=== PATIENT | female | born 1995 | race Caucasian/White ===

== ENCOUNTER 2020-02-13 18:16 | Emergency (ER) | payer MEDICAID, SELFPAY ==
[2020-02-13 20:18] VITALS: BP 119/84; PULSE 99; RESP 16; TEMP 37.1; O2SAT 100; BMI 36.5
--- NOTE | 2020-02-13 20:27 | ED_ITS ---
HPI - Nausea/Vomiting/Diarrhea General Chief complaint: Nausea/Vomiting/Diarrhea <TAMELA Man Last Filed: 02/14/20 01:14> Stated complaint: flu like <Berna Chung NP - Last Filed: 02/14/20 01:14> Time Seen by Provider: 02/13/20 20:27 <TAMELA Man Last Filed: 02/14/20 01:14> Source: patient <Berna Chung NP - Last Filed: 02/14/20 01:14> Mode of arrival: ambulatory <TAMELA Man Last Filed: 02/14/20 01:14> Limitations: no limitations <TAMELA Man Last Filed: 02/14/20 01:14> History of Present Illness HPI Narrative: 25-year-old female presents with multiple complaints of earache, sore throat, subjective fevers and chills, intractable headache, photophobia, nausea and vomiting. She has been feeling well over the past 3 days and when she woke up this morning she had a 10/10 headache and was unable to open her eyes because of photophobia. She states to have vomited 6 times today, did not eat or drink anything because of nausea and headache. She has a distant history of meningitis at age 11 and states she feels similar to that prior experience. She denies chest pain and pressure, palpitations, shortness of breath, abdominal distention, dysuria, hematuria, edema, loss of balance, trauma and falls. <TAMELA Man Last Filed: 02/14/20 01:14> MD elicited complaint: nausea and vomiting <TAMELA Man Last Filed: 02/14/20 01:14> Onset (ago): day(s) <Berna Chung NP - Last Filed: 02/14/20 01:14> Description of vomiting: watery and bilious <TAMELA Man Last Filed: 02/14/20 01:14> Associated nausea: Yes <TAMELA Man Last Filed: 02/14/20 01:14> Associated abdominal pain: No <TAMELA Man Last Filed: 02/14/20 01:14> Pain consistency: constant <Berna Chung NP - Last Filed: 02/14/20 01:14> Severity: moderate <Berna Chung NP - Last Filed: 02/14/20 01:14> Associated symptoms: fever/chills and headaches <Berna Chung NP - Last Filed: 02/14/20 01:14> Treatment prior to arrival: analgesics <Berna Chung NP - Last Filed: 02/14/20 01:14> Related Data Home medications: Previous Rx's Medication Instructions Recorded amoxicillin-pot clavulanate 1 tab PO Q12H 7 Days #14 tab 02/14/20 [Augmentin] smcbraueaa-zjoyhnavsedbd-yphf 1 cap PO Q8H PRN #10 cap 02/14/20 [Fioricet] <Berna Chung NP - Last Filed: 02/14/20 01:14> Allergies/Adverse reactions: Allergies Allergy/AdvReac Type Severity Reaction Status Date / Time No Known Allergies Allergy Unverified 01/20/20 16:14 [No Known Allergies*] <Berna Chung NP - Last Filed: 02/14/20 01:14> Review of Systems Review of Systems: Constitutional: No Weight loss, No Fever, No Chills, No Night Sweats, No Fatigue, No Malaise ENT/Mouth: Positive ear pain, sore throat, No Hearing loss, No Nasal Congestion, No Sinus Pain, No Hoarseness, No Rhinorrhea, No Swallowing Difficulty Eyes: positive photophobia, No Eye Pain, No Swelling, No Redness, No Foreign Body, No Discharge, No Vision Changes Cardiovascular: No Chest Pain, No SOB, No Dyspnea on Exertion, No Orthopnea, No Edema, No Palpitations Respiratory: No Cough, No Sputum, No Wheezing, No Smoke Exposure, No Dyspnea Gastrointestinal: Positive Nausea, Positive Vomiting, positive Diarrhea, positive abdominal Pain, No Hematochezia, No Melena Genitourinary: no irregular bleeding, No Dysuria, No Urinary Frequency, No Hematuria, No Urinary Incontinence, No Urgency, No Flank Pain, No Urinary Flow Changes, No Hesitancy Musculoskeletal: No joint pain, No Myalgias, No Joint Swelling Skin: No Skin Lesions, No rash Neuro: No Weakness, No Numbness, No Paresthesias, No Loss of Consciousness, No Dizziness, No Headache Psych: No Anxiety/Panic, No Depression, No SI/HI/AH/VH, No Social Issues, Heme/Lymph: No Bruising, No Bleeding,No Lymphadenopathy Endocrine: No Polyuria, No Polydipsia, No Temperature Intolerance <Berna Chung NP - Last Filed: 02/14/20 01:14> Gastrointestinal: Gastrointestinal: Reports nausea <Berna Chung NP - Last Filed: 02/14/20 01:14> [facility] Past Medical History Attestation statement: The following information was validated with the patient. <Berna Chung NP - Last Filed: 02/14/20 01:14> Medical History: Medical History (Updated 02/14/20 @ 00:52 by Berna Chung NP) Meningitis Migraines <Berna Chung NP - Last Filed: 02/14/20 01:14> Social History Social History: Social History Alcohol intake: never Smoking Status: Never smoker Use of substances other than those prescribed or required for medical reasons: No Advance Directives: No Advance Directives Information Provided: No <Berna Chung NP - Last Filed: 02/14/20 01:14> Physical Exam Vital Signs: Vital Signs: Vital Signs Temp Pulse Resp BP Pulse Ox 02/14/20 00:00 98.7 F 84 24 H 101/59 L 100 02/13/20 22:04 84 129/77 100 02/13/20 21:24 98.8 F 86 16 106/61 100 02/13/20 21:00 100 02/13/20 20:18 98.8 F 99 16 119/84 100 Body Mass Index 36.5 <Berna Chung NP - Last Filed: 02/14/20 01:14> Vital Signs: Vital Signs Temp Pulse Resp BP Pulse Ox 02/14/20 00:00 98.7 F 84 24 H 101/59 L 100 02/13/20 22:04 84 129/77 100 02/13/20 21:24 98.8 F 86 16 106/61 100 02/13/20 21:00 100 02/13/20 20:18 98.8 F 99 16 119/84 100 Body Mass Index 36.5 <Geoff An DO - Last Filed: 02/14/20 01:42> Appearance: Alert. Oriented X3. No acute distress. Eyes: Pupils equal, round and reactive to light. ENT: Pharynx normal. Neck: Normal inspection. Neck supple. CVS: Normal heart rate and rhythm. Pulses normal. Respiratory: No respiratory distress. Breath sounds normal. Abdomen: Soft and nontender. Skin: Skin warm and dry. Normal skin color. Normal skin turgor. Extremities: No lower extremity edema. No lower extremity edema. Neuro: Oriented X 3. No motor deficit. No sensory deficit. <Berna Chung NP - Last Filed: 02/14/20 01:14> Course Course Course Narrative: I evaluated the patient myself. 25-year-old with sore throat right ear pain full body myalgias and headache without signs of meningitis. improved agree with mid-level provider's assessment and plan <DO Barron Gandara Last Filed: 02/14/20 01:42> MDM - Nausea/Vomiting/Diarrhea Differential Diagnosis Differential diagnosis: Likely gastroenteritis and dehydration <Berna Chung NP - Last Filed: 02/14/20 01:14> Medical Records Attestation: I reviewed the patient's medical records. <Berna Chung NP - Last Filed: 02/14/20 01:14> Lab Data Attestation: I reviewed the patient's lab results. <Berna Chung NP - Last Filed: 02/14/20 01:14> Result diagrams: : 02/13/20 21:07 02/13/20 21:07 <Berna Chung NP - Last Filed: 02/14/20 01:14> Labs: Lab Results 02/13/20 02/13/20 02/13/20 Range/Units 21:07 21:07 21:07 WBC 12.1 H (4.8-10.8) X10*3/uL RBC 4.47 (4.20-5.50) X10*6/uL Hgb 12.4 (12.0-16.0) g/dl Hct 38.3 (37-47) % MCV 85.7 (80-98) fL MCH 27.7 (27.0-33.0) pg MCHC 32.4 (31.0-35.0) g/dl RDW 13.8 (11.0-16.0) % Plt Count 366 (160-400) X10*3/uL MPV 10.9 (9.4-12.3) fL Immature Gran % (Auto) 0.3 (0.0-0.4) % Neut % (Auto) 81.9 H (45-73) % Lymph % (Auto) 11.2 L (20-40) % [place] % (Auto) 6.4 (2-11) % Eos % (Auto) 0.0 (0-4) % Baso % (Auto) 0.2 (0-2) % Lymph # (Auto) 1.4 (1.2-4.9) X10*3/uL [place] # (Auto) 0.8 (0.1-1.2) X10*3/uL Eos # (Auto) 0.0 (0.0-0.4) X10*3/uL Baso # (Auto) 0.0 (0.0-0.2) X10*3/uL Abs Immat Gran (auto) 0.04 H (0.00-0.03) X10*3/uL Absolute Neuts (auto) 9.9 H (2.0-8.3) X10*3/uL Absolute Nucleated RBC 0.000 (0.0-0.012) X10*3/uL Nucleated RBC % (auto) 0.0 (0.0-0.2) /100WBC PT 13.8 H (10.8-13.0) SEC INR 1.2 H (0.9-1.1) Sodium 137 (135-145) mmol/L Potassium 4.1 (3.3-5.1) mmol/l Chloride 104 (96-108) mmol/L Carbon Dioxide 22 (22-29) mmol/L Anion Gap 15 (12-20) BUN 6 L (9-16) mg/dL Creatinine 0.69 (0.5-1.4) mg/dL Estim Creat Clear Calc 158.3 Estimated GFR > 60 Random Glucose 99 (60-115) mg/dL Lactic Acid (0.5-2.0) mmol/L Calcium 9.0 (8.4-10.2) mg/dL Magnesium 1.8 (1.6-2.6) mg/dL Total Bilirubin 0.7 (0.0-1.0) mg/dL Direct Bilirubin 0.3 (0.0-0.5) mg/dL AST 22 (5-31) U/L ALT 19 (0-31) U/L Alkaline Phosphatase 108 (39-117) U/L Total Protein 7.9 (6.5-8.0) g/dL Albumin 4.4 (3.5-5.0) g/dL Lipase 5 L (8-78) U/L Beta HCG, Quant < 2 mIU/mL Urine Color Urine Appearance Urine pH (5.0-8.0) Ur Specific Media (1.005-1.025) Urine Protein (NEG-TRACE) MG/DL Urine Glucose (UA) (NEG) MG/DL Urine Ketones (NEG) MG/DL Urine Blood (NEG) Urine Nitrite (NEG) Ur Leukocyte Esterase (NEG) 02/13/20 02/13/20 Range/Units 21:07 23:19 WBC (4.8-10.8) X10*3/uL RBC (4.20-5.50) X10*6/uL Hgb (12.0-16.0) g/dl Hct (37-47) % MCV (80-98) fL MCH (27.0-33.0) pg MCHC (31.0-35.0) g/dl RDW (11.0-16.0) % Plt Count (160-400) X10*3/uL MPV (9.4-12.3) fL Immature Gran % (Auto) (0.0-0.4) % Neut % (Auto) (45-73) % Lymph % (Auto) (20-40) % [place] % (Auto) (2-11) % Eos % (Auto) (0-4) % Baso % (Auto) (0-2) % Lymph # (Auto) (1.2-4.9) X10*3/uL [place] # (Auto) (0.1-1.2) X10*3/uL Eos # (Auto) (0.0-0.4) X10*3/uL Baso # (Auto) (0.0-0.2) X10*3/uL Abs Immat Gran (auto) (0.00-0.03) X10*3/uL Absolute Neuts (auto) (2.0-8.3) X10*3/uL Absolute Nucleated RBC (0.0-0.012) X10*3/uL Nucleated RBC % (auto) (0.0-0.2) /100WBC PT (10.8-13.0) SEC INR (0.9-1.1) Sodium (135-145) mmol/L Potassium (3.3-5.1) mmol/l Chloride (96-108) mmol/L Carbon Dioxide (22-29) mmol/L Anion Gap (12-20) BUN (9-16) mg/dL Creatinine (0.5-1.4) mg/dL Estim Creat Clear Calc Estimated GFR Random Glucose (60-115) mg/dL Lactic Acid 1.2 (0.5-2.0) mmol/L Calcium (8.4-10.2) mg/dL Magnesium (1.6-2.6) mg/dL Total Bilirubin (0.0-1.0) mg/dL Direct Bilirubin (0.0-0.5) mg/dL AST (5-31) U/L ALT (0-31) U/L Alkaline Phosphatase (39-117) U/L Total Protein (6.5-8.0) g/dL Albumin (3.5-5.0) g/dL Lipase (8-78) U/L Beta HCG, Quant mIU/mL Urine Color YELLOW Urine Appearance CLEAR Urine pH 6.5 (5.0-8.0) Ur Specific Media 1.025 (1.005-1.025) Urine Protein NEG (NEG-TRACE) MG/DL Urine Glucose (UA) NEG (NEG) MG/DL Urine Ketones >=80 (NEG) MG/DL Urine Blood NEG (NEG) Urine Nitrite NEG (NEG) Ur Leukocyte Esterase NEG (NEG) <Berna Chung NP - Last Filed: 02/14/20 01:14> Lab Results 02/13/20 02/13/20 02/13/20 Range/Units 21:07 21:07 21:07 WBC 12.1 H (4.8-10.8) X10*3/uL RBC 4.47 (4.20-5.50) X10*6/uL Hgb 12.4 (12.0-16.0) g/dl Hct 38.3 (37-47) % MCV 85.7 (80-98) fL MCH 27.7 (27.0-33.0) pg MCHC 32.4 (31.0-35.0) g/dl RDW 13.8 (11.0-16.0) % Plt Count 366 (160-400) X10*3/uL MPV 10.9 (9.4-12.3) fL Immature Gran % (Auto) 0.3 (0.0-0.4) % Neut % (Auto) 81.9 H (45-73) % Lymph % (Auto) 11.2 L (20-40) % [place] % (Auto) 6.4 (2-11) % Eos % (Auto) 0.0 (0-4) % Baso % (Auto) 0.2 (0-2) % Lymph # (Auto) 1.4 (1.2-4.9) X10*3/uL [place] # (Auto) 0.8 (0.1-1.2) X10*3/uL Eos # (Auto) 0.0 (0.0-0.4) X10*3/uL Baso # (Auto) 0.0 (0.0-0.2) X10*3/uL Abs Immat Gran (auto) 0.04 H (0.00-0.03) X10*3/uL Absolute Neuts (auto) 9.9 H (2.0-8.3) X10*3/uL Absolute Nucleated RBC 0.000 (0.0-0.012) X10*3/uL Nucleated RBC % (auto) 0.0 (0.0-0.2) /100WBC PT 13.8 H (10.8-13.0) SEC INR 1.2 H (0.9-1.1) Sodium 137 (135-145) mmol/L Potassium 4.1 (3.3-5.1) mmol/l Chloride 104 (96-108) mmol/L Carbon Dioxide 22 (22-29) mmol/L Anion Gap 15 (12-20) BUN 6 L (9-16) mg/dL Creatinine 0.69 (0.5-1.4) mg/dL Estim Creat Clear Calc 158.3 Estimated GFR > 60 Random Glucose 99 (60-115) mg/dL Lactic Acid (0.5-2.0) mmol/L Calcium 9.0 (8.4-10.2) mg/dL Magnesium 1.8 (1.6-2.6) mg/dL Total Bilirubin 0.7 (0.0-1.0) mg/dL Direct Bilirubin 0.3 (0.0-0.5) mg/dL AST 22 (5-31) U/L ALT 19 (0-31) U/L Alkaline Phosphatase 108 (39-117) U/L Total Protein 7.9 (6.5-8.0) g/dL Albumin 4.4 (3.5-5.0) g/dL Lipase 5 L (8-78) U/L Beta HCG, Quant < 2 mIU/mL Urine Color Urine Appearance Urine pH (5.0-8.0) Ur Specific Media (1.005-1.025) Urine Protein (NEG-TRACE) MG/DL Urine Glucose (UA) (NEG) MG/DL Urine Ketones (NEG) MG/DL Urine Blood (NEG) Urine Nitrite (NEG) Ur Leukocyte Esterase (NEG) 02/13/20 02/13/20 Range/Units 21:07 23:19 WBC (4.8-10.8) X10*3/uL RBC (4.20-5.50) X10*6/uL Hgb (12.0-16.0) g/dl Hct (37-47) % MCV (80-98) fL MCH (27.0-33.0) pg MCHC (31.0-35.0) g/dl RDW (11.0-16.0) % Plt Count (160-400) X10*3/uL MPV (9.4-12.3) fL Immature Gran % (Auto) (0.0-0.4) % Neut % (Auto) (45-73) % Lymph % (Auto) (20-40) % [place] % (Auto) (2-11) % Eos % (Auto) (0-4) % Baso % (Auto) (0-2) % Lymph # (Auto) (1.2-4.9) X10*3/uL [place] # (Auto) (0.1-1.2) X10*3/uL Eos # (Auto) (0.0-0.4) X10*3/uL Baso # (Auto) (0.0-0.2) X10*3/uL Abs Immat Gran (auto) (0.00-0.03) X10*3/uL Absolute Neuts (auto) (2.0-8.3) X10*3/uL Absolute Nucleated RBC (0.0-0.012) X10*3/uL Nucleated RBC % (auto) (0.0-0.2) /100WBC PT (10.8-13.0) SEC INR (0.9-1.1) Sodium (135-145) mmol/L Potassium (3.3-5.1) mmol/l Chloride (96-108) mmol/L Carbon Dioxide (22-29) mmol/L Anion Gap (12-20) BUN (9-16) mg/dL Creatinine (0.5-1.4) mg/dL Estim Creat Clear Calc Estimated GFR Random Glucose (60-115) mg/dL Lactic Acid 1.2 (0.5-2.0) mmol/L Calcium (8.4-10.2) mg/dL Magnesium (1.6-2.6) mg/dL Total Bilirubin (0.0-1.0) mg/dL Direct Bilirubin (0.0-0.5) mg/dL AST (5-31) U/L ALT (0-31) U/L Alkaline Phosphatase (39-117) U/L Total Protein (6.5-8.0) g/dL Albumin (3.5-5.0) g/dL Lipase (8-78) U/L Beta HCG, Quant mIU/mL Urine Color YELLOW Urine Appearance CLEAR Urine pH 6.5 (5.0-8.0) Ur Specific Media 1.025 (1.005-1.025) Urine Protein NEG (NEG-TRACE) MG/DL Urine Glucose (UA) NEG (NEG) MG/DL Urine Ketones >=80 (NEG) MG/DL Urine Blood NEG (NEG) Urine Nitrite NEG (NEG) Ur Leukocyte Esterase NEG (NEG) <Geoff An, DO - Last Filed: 02/14/20 01:42> Imaging Data Chest x-ray: Attestation: I personally reviewed and interpreted this imaging study as follows: <Berna Chung NP - Last Filed: 02/14/20 01:14> Radiologist's impression: CLINICAL INFORMATION: Nausea and vomiting with diarrhea COMPARISON: 01/11/2015 TECHNIQUE: Frontal view of the chest was obtained. FINDINGS: No significant abnormality is noted involving the heart, lungs, mediastinum, bony thorax or soft tissues. IMPRESSION: Unremarkable examination. <Berna Chung NP - Last Filed: 02/14/20 01:14> CT scan - head: Attestation: I personally reviewed and interpreted this imaging study as follows: <Berna Chung NP - Last Filed: 02/14/20 01:14> Radiologist's impression: CT HEAD WITHOUT CONTRAST CLINICAL INFORMATION: Headache, photophobia. History of meningitis COMPARISON: 12/03/2008 TECHNIQUE: Contiguous axial imaging was performed from the skull base to vertex without intravenous administration of contrast. This CT examination was performed using dose optimization techniques as appropriate, variously including the following: *Automated exposure control *Adjustment of mA and/or kV according to patient size (this includes techniques or standardized protocols for targeted exams where dose is matched to indication/reason for exam; i.e. extremities or head) *Use of iterative reconstruction technique DLP: 774 mGy-cm FINDINGS: There is no evidence of acute intracranial hemorrhage or territorial infarction. No abnormal mass effect or midline shift is seen. Willis to white matter differentiation is well preserved. No extra-axial fluid collections are identified. The ventricles are normal in size. There is no abnormal attenuation within the brain parenchyma. The osseous structures and soft tissues are normal. The mastoid air cells and visualized portions of the paranasal sinuses are well aerated. IMPRESSION: No acute intracranial pathology. <Berna Chung NP - Last Filed: 02/14/20 01:14> Discharge Plan Discharge Clinical Impression: Migraine Qualifiers: Migraine type: unspecified Status migrainosus presence: without status migrainosus Intractability: intractable Qualified Code(s): G43.919 - Migraine, unspecified, intractable, without status migrainosus Otitis media Qualifiers: Otitis media type: suppurative Chronicity: acute Laterality: right Recurrence: non-recurrent Spontaneous tympanic membrane rupture: without spontaneous rupture Qualified Code(s): H66.001 - Acute suppurative otitis media without spontaneous rupture of ear drum, right ear <Berna Chung NP - Last Filed: 02/14/20 01:14> Patient Disposition: Home, Self-Care <Berna Chung NP - Last Filed: 02/14/20 01:14> Instructions: Migraine Headache (ED), Acute Headache (ED), Serous Otitis Media (ED) <Berna Chung NP - Last Filed: 02/14/20 01:14> Additional Instructions: you were evaluated for intractable headache, nausea, vomiting, earache and sore throat. CT scan of head is negative for acute findings needing emergent intervention. inspection of the right ear is positive for otitis media, which is an ear infection. We prescribed Antibiotic Augmentin for your ear infection. Please take the entire course of this medication. for your headache, we prescribed Fioricet. Please take medication as prescribed. You may consider following up with your primary care provider for further workup for migraine headaches. Thank you for choosing this emergency department for evaluation. Please follow-up with primary care physician as needed. Return to the emergency department for any new, concerning, or worsening symptoms. <Benra Chung NP - Last Filed: 02/14/20 01:14> Prescriptions: New hfiwctxsyw-ybnwqecjgldfw-nnuh [Fioricet] 50-300-40 mg capsule 1 cap PO Q8H PRN (Reason: pain) Qty: 10 RF: 0 amoxicillin-pot clavulanate [Augmentin] 875-125 mg tablet 1 tab PO Q12H 7 Days Qty: 14 RF: 0 <Berna Chung NP - Last Filed: 02/14/20 01:14> Interventions: ED Discharge Assessment Last Done: 02/14/20 01:20 <TAMELA Man Last Filed: 02/14/20 01:14> Discharge Date/Time: 02/14/20 01:21 <TAMELA Man Last Filed: 02/14/20 01:14>
--- NOTE | 2020-02-13 20:35 | CT_ITS ---
EXAMINATION: CT HEAD WITHOUT CONTRAST CLINICAL INFORMATION: Headache, photophobia. History of meningitis COMPARISON: 12/03/2008 TECHNIQUE: Contiguous axial imaging was performed from the skull base to vertex without intravenous administration of contrast. This CT examination was performed using dose optimization techniques as appropriate, variously including the following: *Automated exposure control *Adjustment of mA and/or kV according to patient size (this includes techniques or standardized protocols for targeted exams where dose is matched to indication/reason for exam; i.e. extremities or head) *Use of iterative reconstruction technique DLP: 774 mGy-cm FINDINGS: There is no evidence of acute intracranial hemorrhage or territorial infarction. No abnormal mass effect or midline shift is seen. Willis to white matter differentiation is well preserved. No extra-axial fluid collections are identified. The ventricles are normal in size. There is no abnormal attenuation within the brain parenchyma. The osseous structures and soft tissues are normal. The mastoid air cells and visualized portions of the paranasal sinuses are well aerated. IMPRESSION: No acute intracranial pathology.
--- NOTE | 2020-02-13 20:36 | XR_ITS ---
EXAMINATION: XR CHEST CLINICAL INFORMATION: Nausea and vomiting with diarrhea COMPARISON: 01/11/2015 TECHNIQUE: Frontal view of the chest was obtained. FINDINGS: No significant abnormality is noted involving the heart, lungs, mediastinum, bony thorax or soft tissues. IMPRESSION: Unremarkable examination.
[2020-02-13 21:00] VITALS: PULSE 84; O2SAT 100
[2020-02-13] MEDS: 0.9 % Sodium Chloride 1,000 ML 999 ML IVCONT (21:07)
[2020-02-13 21:13] LABS: MANUAL DIFF FLAG NO
[2020-02-13 21:15] LABS: Basophils Percent Auto 0.2 % (0-2); Hematocrit 38.3 % (37-47); Hemoglobin 12.4 g/dl (12.0-16.0); Imm Gran Abs Auto 0.04 X10*3/uL (0.00-0.03); Imm Gran Pct Auto 0.3 % (0.0-0.4); Lymphocytes Absolute Auto 1.4 X10*3/uL (1.2-4.9); Lymphocytes Percent Auto 11.2 % (20-40); Mean Corpuscular HGB Conc 32.4 g/dl (31.0-35.0); Mean Corpuscular Hemoglobin 27.7 pg (27.0-33.0); Mean Corpuscular Volume 85.7 fL (80-98); Mean Platelet Volume 10.9 fL (9.4-12.3); Monocytes Absolute Auto 0.8 X10*3/uL (0.1-1.2); Monocytes Percent Auto 6.4 % (2-11); Neutrophils Absolute Auto 9.9 X10*3/uL (2.0-8.3); Neutrophils Percent Auto 81.9 % (45-73); Platelet Count 366 X10*3/uL (160-400); Red Blood Count 4.47 X10*6/uL (4.20-5.50); Red Cell Distribution Width 13.8 % (11.0-16.0); White Blood Count 12.1 X10*3/uL (4.8-10.8)
[2020-02-13 21:20] LABS: INTERNATIONAL NORM RATIO 1.2 (0.9-1.1); Prothrombin Time 13.8 SEC (10.8-13.0)
[2020-02-13 21:24] VITALS: BP 106/61; PULSE 86; RESP 16; TEMP 37.1; O2SAT 100
[2020-02-13 21:52] LABS: Lactic Acid 1.2 mmol/L (0.5-2.0)
[2020-02-13 21:59] LABS: Alanine Aminotransferase 19 U/L (0-31); Albumin Level 4.4 g/dL (3.5-5.0); Alkaline Phosphatase 108 U/L (39-117); Anion Gap 15 (12-20); Aspartate Amino Transferase 22 U/L (5-31); Bilirubin Direct 0.3 mg/dL (0.0-0.5); Bilirubin Total 0.7 mg/dL (0.0-1.0); Blood Urea Nitrogen 6 mg/dL (9-16); Carbon Dioxide 22 mmol/L (22-29); Chloride 104 mmol/L (96-108); Creatinine Clr Calc Pharmacy 158.3; Estimated Glomerular Filt Rate > 60; Glucose Random 99 mg/dL (60-115); Lipase 5 U/L (8-78); Magnesium 1.8 mg/dL (1.6-2.6); Potassium 4.1 mmol/l (3.3-5.1); Sodium 137 mmol/L (135-145); Total Protein 7.9 g/dL (6.5-8.0)
[2020-02-13 22:03] LABS: HCG Quantitative < 2 mIU/mL
[2020-02-13 22:04] VITALS: BP 129/77; PULSE 84; O2SAT 100
[2020-02-13] MEDS: Ketorolac Tromethamine 30 MG/ML VIAL IVPUSH (22:18)
[2020-02-13] MEDS: diphenhydrAMINE HCL 50 MG/ML VIAL 25 MG IVPUSH (22:19)
[2020-02-13] MEDS: ondansetron HCL 4 MG/2 ML VIAL IVPUSH (22:19)
[2020-02-13] MEDS: cefTRIAXone sodium 1 GM in 0.9 % Sodium Chloride 50 ML IV (22:29)
--- NOTE | 2020-02-13 22:38 | PC.NURSE ---
PT TRIAGED C/O VOMITING X 4 EPISODES TODAY, WITH NAUSEA, SEVERE HEADACHE, R EAR PAIN, FEVER AT HOME. DENIES ANY OTHER COVID SXS, NO KNOWN COVID EXPOSURE. PT REPORTS HX OF MENINGITIS A CHILD, FEELS LIKE I DID WHEN I GOT THAT . AFEBRILE, VS WNL. PT VERY SENSITIVE TO LIGHT. LABS DRAWN, 20G IN R AC.
--- NOTE | 2020-02-13 22:40 | PC.NURSE ---
PT MEDICATED FOR ONGOING NAUSEA & VOMITING. SWAB SPECIMENS COLLECTED. PT CURRENTLY REPORTS MILD RELIEF OF NAUSEA.
[2020-02-13 23:25] LABS: Glucose Urine UA NEG (NEG); Leukocyte Esterase Urine NEG (NEG); Nitrite Urine NEG (NEG); PH 6.5 (5.0-8.0); Specific Gravity - Urine 1.025 (1.005-1.025); Urine Blood NEG (NEG); Urine Ketones >=80 MG/DL (NEG); Urine Protein NEG (NEG-TRACE)
[2020-02-13 23:26] LABS: Appearance Urine CLEAR; Color Urine YELLOW; UACC Culture Trigger NO
[2020-02-14] VITALS: BP 101/59; PULSE 84; RESP 24; TEMP 37.1; O2SAT 100
--- NOTE | 2020-02-14 00:29 | PC.NURSE ---
reglan not given. IV infiltrated. Spoke with Berna RAPP ok to hold.
== END 2020-02-14 01:21 | disposition home or self-care (01) ==
PROVIDERS: Nurse Practitioner Family; Emergency Provider Emergency Medicine
DX: G43.919 Migraine, unspecified, intractable, without status migrainosus (principal); H66.001 Acute suppurative otitis media without spontaneous rupture of ear drum, right ear; Z20.828 Contact with and (suspected) exposure to other viral communicable diseases
CPT/HCPCS: 36415; 70450; 71045; 80048; 80076; 81003; 83605; 83690; 83735; 84702; 85025; 85610; 87040; 87071; 87147; 87635; 96361; 96365; 96375; 99285; J1200; J1885; J2405; J2765

== ENCOUNTER 2021-04-14 22:39 | Emergency (ER) | payer MEDICAID, SELFPAY ==
--- NOTE | ~2021-04-14 | US_ITS ---
EXAMINATION: US OBSTETRICAL ULTRASOUND CLINICAL INFORMATION: Vaginal bleeding; beta hCG 3025 COMPARISON: None from this . LMP: 02/19/2021. Gestational age by maternal dates is 7 weeks 6 days. Estimated date of delivery by maternal dates is 11/26/2021. TECHNIQUE: Sonographic evaluation of the pelvis was performed transabdominally and transvaginally. FINDINGS: The uterus measures 9.0 cm in length and 3.9 in AP dimension. The endometrium appears heterogeneous, measuring up to 1.9 cm in thickness. No intrauterine gestational sac is seen. The right ovary measures 1.8 x 1.4 x 1.6 cm and appears unremarkable. The left ovary measures 2.3 x 1.7 x 1.6 cm and also appears unremarkable. No adnexal mass identified. No free fluid is seen. US/US OB pelvic and transvaginal IMPRESSION: No intrauterine is identified at this time. No adnexal mass to specifically indicate ectopic . Given the reported beta hCG level, this suggests sequelae of missed , though correlation with serial beta hCG levels is recommended. Short-term sonographic follow-up may also be performed, as the possibility of ectopic would be difficult to entirely exclude at this time. This critical result was discussed with Dr. Morales on 04/15/2021 4:28 AM, and it was ascertained that the content and urgency of the report was understood at the time of direct communication.
[2021-04-14 23:14] VITALS: BP 120/78; PULSE 99; RESP 16; TEMP 36.9; O2SAT 99; BMI 39.5
[2021-04-15 00:37] LABS: MANUAL DIFF FLAG NO
[2021-04-15 00:38] LABS: Basophils Percent Auto 0.3 % (0-2); Eosinophils Absolute Auto 0.1 X10*3/uL (0.0-0.4); Eosinophils Percent Auto 1.5 % (0-4); Hematocrit 35.4 % (37.0-47.0); Hemoglobin 11.3 g/dl (12.0-16.0); Imm Gran Abs Auto 0.03 X10*3/uL (0.00-0.03); Imm Gran Pct Auto 0.3 % (0.0-0.4); Lymphocytes Absolute Auto 2.6 X10*3/uL (1.2-4.9); Lymphocytes Percent Auto 29.3 % (20-40); Mean Corpuscular HGB Conc 31.9 g/dl (31.0-35.0); Mean Corpuscular Hemoglobin 26.6 pg (27.0-33.0); Mean Corpuscular Volume 83.3 fL (80.0-98.0); Mean Platelet Volume 10.9 fL (9.4-12.3); Monocytes Absolute Auto 0.9 X10*3/uL (0.1-1.2); Monocytes Percent Auto 9.8 % (2-11); Neutrophils Absolute Auto 5.3 x10*3/uL (2.0-8.3); Neutrophils Percent Auto 58.8 % (45-73); Platelet Count 356 X10*3/uL (160-400); Red Blood Count 4.25 X10*6/uL (4.20-5.50); Red Cell Distribution Width 15.3 % (11.0-16.0); White Blood Count 8.9 X10*3/uL (4.8-10.8)
[2021-04-15 00:56] LABS: Alanine Aminotransferase 13 U/L (0-31); Alkaline Phosphatase 108 U/L (39-117); Anion Gap 12 (12-20); Aspartate Amino Transferase 14 U/L (5-31); Bilirubin Total 0.2 mg/dL (0.0-1.0); Blood Urea Nitrogen 13 mg/dL (9-16); Calcium 9.1 mg/dL (8.4-10.2); Carbon Dioxide 25 mmol/L (22-29); Chloride 107 mmol/L (96-108); Creatinine Clr Calc Pharmacy 148.8; Estimated Glomerular Filt Rate > 60; Glucose Random 105 mg/dL (60-115); Sodium 140 mmol/L (135-145); Total Protein 7.1 g/dL (6.5-8.0)
[2021-04-15 01:02] LABS: HCG Quantitative 3025 mIU/mL
--- NOTE | 2021-04-15 02:44 | ED_ITS ---
HPI - General Chief complaint: Vaginal Bleeding Stated complaint: 8wks preg; bleeding Time Seen by Provider: 04/15/21 02:43 Source: patient Mode of arrival: ambulatory History of Present Illness HPI Narrative: 26-year-old female with presentation of LMP 02/19 and known to be at an estimated 8 weeks and has an appoint with her OB tomorrow. However, patient began having lower abdominal/pelvic cramping approximately 2 da ys ago without associated fever, chills, nausea, diarrhea and states that in the morning she began having vaginal spotting that increased in heaviness during her wait here in the waiting room. Related Data Previous Rx's Medication Instructions Recorded amoxicillin 875 mg-potassium 1 tab PO Q12H 7 Days #14 tab 02/14/20 clavulanate 125 mg tablet (Augmentin) mabptcueeb-qcpwjedohylcd-liqpqcud 1 cap PO Q8H PRN #10 cap 02/14/20 50 mg-300 mg-40 mg capsule (Fioricet) Allergies Allergy/AdvReac Type Severity Reaction Status Date / Time No Known Allergies Allergy Unverified 01/20/20 16:14 [No Known Allergies*] Review of Systems Review of Systems: Pertinent positives and negatives as stated in HPI 10 point review of systems is otherwise negative. PMFSH Past Medical History Source: nursing notes reviewed Medical History Meningitis Migraines Social History Social History Alcohol intake: never Advance Directives: No Advance Directives Information Provided: Yes Patient : Yes Physical Exam Vital Signs: Vital Signs: Last Vital Signs Temp 98.4 F 04/14/21 23:14 Pulse 79 04/15/21 03:15 Resp 18 04/15/21 03:15 BP 109/58 L 04/15/21 03:15 Pulse Ox 99 04/15/21 03:15 BMI result Body Mass Index 39.5 VITAL SIGNS: Reviewed. GENERAL: Well developed, well nourished, in no acute distress. HEAD: Normocephalic/atraumatic EYES: PERRLA, EOMI OROPHARYNX: no oral lesions noted, posterior pharynx clear LUNGS: Normal breath sounds. No adventitious sounds or accessory muscle use. SpO2<99> CARDIOVASCULAR: Regular rate and rhythm without noted murmurs ABDOMEN: Soft, mild tenderness in suprapubic without rebound, non-distended with bowel sounds. MUSCULOSKELETAL: No tenderness, deformities, or effusions noted on gross inspection. EXTREMITIES: No cyanosis, clubbing or edema. SKIN: Inspection of the skin reveals no rashes NEUROLOGIC: Alert and oriented x 4. Course Course Course Narrative: This is a 26-year-old female with history and clinical presentation 1st trimester vaginal bleeding and on review of all investigations are no acute findings other than [id number]. Review of all investigations without acute findings and on speaking with [facility] the ultrasound does not demonstrate any gestational sac or evidence of ectopic . Inference is that there has been a possible missed and the hCG levels should be trended outpatient or patient should also receive a repeat ultrasound within the next week. MDM - OB/Uterine Contractions Lab Data Result diagrams: 04/15/21 00:24 04/15/21 00:24 Labs: Lab Results 04/15/21 04/15/21 04/15/21 Range/Units 00:24 00:24 03:15 WBC 8.9 (4.8-10.8) X10*3/uL RBC 4.25 (4.20-5.50) X10*6/uL Hgb 11.3 L (12.0-16.0) g/dl Hct 35.4 L (37.0-47.0) % MCV 83.3 (80.0-98.0) fL MCH 26.6 L (27.0-33.0) pg MCHC 31.9 (31.0-35.0) g/dl RDW 15.3 (11.0-16.0) % Plt Count 356 (160-400) X10*3/uL MPV 10.9 (9.4-12.3) fL Immature Gran % (Auto) 0.3 (0.0-0.4) % Neut % (Auto) 58.8 (45-73) % Lymph % (Auto) 29.3 (20-40) % Cassia % (Auto) 9.8 (2-11) % Eos % (Auto) 1.5 (0-4) % Baso % (Auto) 0.3 (0-2) % Lymph # (Auto) 2.6 (1.2-4.9) X10*3/uL Cassia # (Auto) 0.9 (0.1-1.2) X10*3/uL Eos # (Auto) 0.1 (0.0-0.4) X10*3/uL Baso # (Auto) 0.0 (0.0-0.2) X10*3/uL Abs Immat Gran (auto) 0.03 (0.00-0.03) X10*3/uL Absolute Neuts (auto) 5.3 (2.0-8.3) x10*3/uL Absolute Nucleated RBC 0.000 (0.0-0.012) X10*3/uL Nucleated RBC % (auto) 0.0 (0.0-0.2) /100WBC Sodium 140 (135-145) mmol/L Potassium 4.0 (3.3-5.1) mmol/L Chloride 107 (96-108) mmol/L Carbon Dioxide 25 (22-29) mmol/L Anion Gap 12 (12-20) BUN 13 (9-16) mg/dL Creatinine 0.76 (0.5-1.4) mg/dL Estim Creat Clear Calc 148.8 Estimated GFR > 60 Random Glucose 105 (60-115) mg/dL Calcium 9.1 (8.4-10.2) mg/dL Total Bilirubin 0.2 (0.0-1.0) mg/dL AST 14 (5-31) U/L ALT 13 (0-31) U/L Alkaline Phosphatase 108 (39-117) U/L Total Protein 7.1 (6.5-8.0) g/dL Albumin 4.0 (3.5-5.0) g/dL Beta HCG, Quant 3025 mIU/mL Urine Color YELLOW Urine Appearance HAZY Urine pH 6.0 (5.0-8.0) Ur Specific [place] >= 1.030 H (1.005-1.025) Urine Protein TRACE (NEG-TRACE) MG/DL Urine Glucose (UA) NEG (NEG) MG/DL Urine Ketones NEG (NEG) MG/DL Urine Blood 2+ H (NEG) Urine Nitrite NEG (NEG) Ur Leukocyte Esterase NEG (NEG) Urine RBC 30-49 H (0) /HPF Urine WBC 0-2 (0-4) /HPF Ur Squamous Epith Cells 2+ /LPF Urine Bacteria TRACE /LPF Urine Mucus 3+ /LPF Urine Test (NEGATIVE) 04/15/21 Range/Units 03:15 WBC (4.8-10.8) X10*3/uL RBC (4.20-5.50) X10*6/uL Hgb (12.0-16.0) g/dl Hct (37.0-47.0) % MCV (80.0-98.0) fL MCH (27.0-33.0) pg MCHC (31.0-35.0) g/dl RDW (11.0-16.0) % Plt Count (160-400) X10*3/uL MPV (9.4-12.3) fL Immature Gran % (Auto) (0.0-0.4) % Neut % (Auto) (45-73) % Lymph % (Auto) (20-40) % Cassia % (Auto) (2-11) % Eos % (Auto) (0-4) % Baso % (Auto) (0-2) % Lymph # (Auto) (1.2-4.9) X10*3/uL Cassia # (Auto) (0.1-1.2) X10*3/uL Eos # (Auto) (0.0-0.4) X10*3/uL Baso # (Auto) (0.0-0.2) X10*3/uL Abs Immat Gran (auto) (0.00-0.03) X10*3/uL Absolute Neuts (auto) (2.0-8.3) x10*3/uL Absolute Nucleated RBC (0.0-0.012) X10*3/uL Nucleated RBC % (auto) (0.0-0.2) /100WBC Sodium (135-145) mmol/L Potassium (3.3-5.1) mmol/L Chloride (96-108) mmol/L Carbon Dioxide (22-29) mmol/L Anion Gap (12-20) BUN (9-16) mg/dL Creatinine (0.5-1.4) mg/dL Estim Creat Clear Calc Estimated GFR Random Glucose (60-115) mg/dL Calcium (8.4-10.2) mg/dL Total Bilirubin (0.0-1.0) mg/dL AST (5-31) U/L ALT (0-31) U/L Alkaline Phosphatase (39-117) U/L Total Protein (6.5-8.0) g/dL Albumin (3.5-5.0) g/dL Beta HCG, Quant mIU/mL Urine Color Urine Appearance Urine pH (5.0-8.0) Ur Specific [place] (1.005-1.025) Urine Protein (NEG-TRACE) MG/DL Urine Glucose (UA) (NEG) MG/DL Urine Ketones (NEG) MG/DL Urine Blood (NEG) Urine Nitrite (NEG) Ur Leukocyte Esterase (NEG) Urine RBC (0) /HPF Urine WBC (0-4) /HPF Ur Squamous Epith Cells /LPF Urine Bacteria /LPF Urine Mucus /LPF Urine Test POSITIVE H (NEGATIVE) Discharge Plan Discharge Clinical Impression: Vaginal bleeding, Missed Patient Disposition: Home, Self-Care Instructions: Miscarriage (ED) Additional Instructions: 1. Recommend that you follow-up with your OB scheduled tomorrow and discuss your visit this evening, as well as the results that should be available within the computer system. 2. Recommend repeat ultrasound as well as repeat levels. Return to the ER for worsening symptoms. Prescriptions: No Action pgjjcwlwoq-zarwmnnafglut-xwgp [Fioricet] 50-300-40 mg capsule 1 cap PO Q8H PRN (Reason: pain) Qty: 10 RF: 0 amoxicillin-pot clavulanate [Augmentin] 875-125 mg tablet 1 tab PO Q12H 7 Days Qty: 14 RF: 0 Referrals: [facility] [Primary Care Provider] - 2 days
[2021-04-15 03:15] VITALS: BP 109/58; PULSE 79; RESP 18; O2SAT 99
[2021-04-15 03:22] LABS: UPreg QC Valid YES; Urine Pregnancy POSITIVE (NEGATIVE)
[2021-04-15 03:25] LABS: Appearance Urine HAZY; Color Urine YELLOW; Glucose Urine UA NEG (NEG); Leukocyte Esterase Urine NEG (NEG); Nitrite Urine NEG (NEG); Specific Gravity - Urine >= 1.030 (1.005-1.025); UACC Culture Trigger NO; Urine Blood 2+ (NEG); Urine Ketones NEG (NEG); Urine Protein TRACE MG/DL (NEG-TRACE)
[2021-04-15 03:31] LABS: RBC Urine 30-49 /HPF (0); WBC Urine 0-2 /HPF (0-4)
[2021-04-15 03:32] LABS: Bacteria Urine TRACE /LPF; Mucus Urine 3+ /LPF; Squamous Epithelial Cell Urine 2+ /LPF
[2021-04-15] MEDS: Acetaminophen 325 MG TABLET 975 MG PO (03:57)
== END 2021-04-15 04:52 | disposition home or self-care (01) ==
PROVIDERS: Emergency Provider Student in an Organized Health Care Education/Training Program
DX: O02.1 Missed abortion (principal); Z3A.08 8 weeks gestation of pregnancy; N93.9 Abnormal uterine and vaginal bleeding, unspecified
CPT/HCPCS: 36415; 76801; 76817; 80053; 81001; 81025; 84702; 85025; 99284

== ENCOUNTER → 2021-04-19 14:23 | Outpatient (BNVA) | payer MEDICAID, SELFPAY | PROVIDERS: Visit Provider Advanced Practice Midwife | DX: O03.9 Complete or unspecified spontaneous abortion without complication (principal) | CPT/HCPCS: 99212 ==

== ENCOUNTER 2021-09-13 17:04 | Emergency (ER) | payer MEDICAID, SELFPAY ==
[2021-09-13 18:03] VITALS: BP 131/80; PULSE 90; RESP 18; TEMP 36.6; O2SAT 100; BMI 39.5
[2021-09-13] MEDS: Ibuprofen 600 MG TABLET PO (18:12)
[2021-09-13 20:13] VITALS: BMI 41.4
[2021-09-13] MEDS: Rabies Vaccine (PCEC)/PF 1 ML VIAL IM (21:54)
[2021-09-13] MEDS: Amoxicillin/Potassium Clav 875 MG TABLET PO (21:55)
[2021-09-13] MEDS: Rabies Immune Globulin/PF 900 UNIT/3 ML VIAL 2472 UNIT IM (21:57)
--- NOTE | 2021-09-13 22:05 | ED_ITS ---
HPI - Animal Bite General Chief Complaint: Animal Bite Stated Complaint: dog bite Time Seen by Provider: 09/13/21 21:05 Source: patient Mode of arrival: ambulatory History of Present Illness HPI narrative: 26-year-old female with a past medical history of migraines, meningitis, presenting to the ED complaining of dog bite to left inner thigh [employer] by friend's dog. Admits dog is not up-to-date on vaccinations. Patient is up-to-date on t etanus vaccination. Denies injury to other area. Of note patient reports she is currently on Augmentin finishing 7 day course tomorrow for tooth infection. complaint: animal bite Onset (ago): hour(s) Related Data Home Medications Medication Instructions Recorded Confirmed omeprazole 20 mg capsule,delayed 20 mg PO DAILY 04/19/21 release Previous Rx's Medication Instructions Recorded amoxicillin 875 mg-potassium 1 tab PO BID 5 Days #10 tab 09/13/21 clavulanate 125 mg tablet Allergies Allergy/AdvReac Type Severity Reaction Status Date / Time No Known Allergies Allergy Verified 04/19/21 14:29 [No Known Allergies*] Review of Systems Review of Systems: Constitutional: No Fever, No Chills ENT/Mouth: No Ear Pain, No Nasal Congestion, No Sinus Pain, No Hoarseness, No sore throat, No Rhinorrhea, No Swallowing Difficulty Cardiovascular: No Chest Pain, No SOB Respiratory: No Cough, No Sputum, No Wheezing Gastrointestinal: No Nausea, No Vomiting, No Diarrhea, No Constipation, No Abdominal pain Genitourinary: No Dysuria, No Urinary Frequency, No Hematuria, No Flank Pain Musculoskeletal: No joint pain, No Myalgias, No Joint Swelling Skin: + Skin Lesions, No rash Neuro: No Weakness, No Numbness, No Paresthesias Yes all other systems are reviewed and are negative [facility] Past Medical History Attestation statement: The following information was validated with the patient. Medical History Meningitis Migraines Social History Social History Alcohol intake: never Advance Directives: No Advance Directives Information Provided: Yes Physical Exam ED Vital Signs: Vital Signs - 24 hr 09/13/21 18:03 Temperature 97.8 F Pulse Rate 90 Respiratory Rate 18 Blood Pressure 131/80 Pulse Oximetry 100 BMI result Body Mass Index 41.4 Const General: cooperative, healthy appearing and no acute distress Orientation/consciousness: patient oriented x3 Limitations: no limitations HENMT Head: Yes normal to inspection and Yes atraumatic Ears: hearing grossly normal bilaterally General nose exam: Normal external nose present Face and sinus: Yes normal facial exam Eyes General: appearance normal, both eyes and all related structures EOM: EOMs intact bilaterally Neck Neck: Yes normal visual inspection and Yes no meningeal signs Resp Effort & Inspection: normal respiratory effort and no respiratory distress Cardio Rate: regular rate Heart sounds: S1 normal heart sound present and S2 normal heart sound present Skin Other: Please refer to image above small puncture wound noted to medial left thigh as well as other bite ciro with surrounding ecchymosis. Tender to palpation. No active drainage. Bleeding controlled. No streaking. Rashes: no rashes Neuro General: patient oriented x3, tone normal and no meningeal signs Gait exam (Neuro): Normal gait present Extrem General: Yes normal to inspection MDM - Animal Bite MDM Narrative Medical decision making narrative: 26-year-old female with a past medical history of migraines, meningitis, presenting to the ED complaining of dog bite to left inner thigh [employer] by friend's dog. On exam vital signs stable, NAD/nontoxic, please refer to imaging blood. No evidence of infection at this time. Will give patient rabies immune globulin, vaccine, and 1st dose of Augmentin. Will extend prescription of Augmentin for 5 more days Differential Diagnosis Differential diagnosis: Likely dog bite Medical Records Attestation: I reviewed the patient's medical records. Lab Data Attestation: I reviewed the patient's lab results. Discharge Plan Discharge Clinical Impression: Dog bite Patient Disposition: Home, Self-Care Instructions: Animal Bite (ED), Rabies (ED) Additional Instructions: your given rabies vaccine and immunoglobulin today in the emergency department. You need to return for the remaining doses on September 16, , and continue taking Augmentin which an antibiotic. If area begins look infected, is red, there is drainage or you have fever please return to the emergency department Prescriptions: New amoxicillin-pot clavulanate 875-125 mg tablet 1 tab PO BID 5 Days Qty: 10 0RF No Action omeprazole 20 mg capsule,delayed release(DR/EC) 20 mg PO DAILY 0RF Referrals: [facility] [Primary Care Provider] -
== END 2021-09-13 22:55 | disposition home or self-care (01) ==
PROVIDERS: Emergency Provider Student in an Organized Health Care Education/Training Program
DX: S71.152A Open bite, left thigh, initial encounter (principal); Z29.14 Encounter for prophylactic rabies immune globulin; Z20.3 Contact with and (suspected) exposure to rabies; W54.0XXA Bitten by dog, initial encounter; Y93.9 Activity, unspecified; Y92.9 Unspecified place or not applicable; Y99.9 Unspecified external cause status
CPT/HCPCS: 90375; 90471; 90675; 96372; 99282; 99284

== ENCOUNTER 2021-09-17 11:43 | Outpatient (REF) | payer MEDICAID, SELFPAY | END 2021-09-17 11:44 | disposition home or self-care (01) | LOC: HO.MDS 11:43 | PROVIDERS: Visit Provider Physician Assistant | DX: Z29.14 Encounter for prophylactic rabies immune globulin (principal); S71.152D Open bite, left thigh, subsequent encounter; W54.0XXD Bitten by dog, subsequent encounter; Z20.3 Contact with and (suspected) exposure to rabies | CPT/HCPCS: 90471; 90675 ==

== ENCOUNTER 2021-09-21 15:02 | Outpatient (REF) | payer MEDICAID, SELFPAY | END 2021-09-21 15:03 | disposition home or self-care (01) | LOC: HO.MDS 15:02 | PROVIDERS: Visit Provider Physician Assistant | DX: Z29.14 Encounter for prophylactic rabies immune globulin (principal); S71.152D Open bite, left thigh, subsequent encounter; W54.0XXD Bitten by dog, subsequent encounter; Z20.3 Contact with and (suspected) exposure to rabies | CPT/HCPCS: 90471; 90675 ==

== ENCOUNTER 2021-10-02 11:43 | Outpatient (REF) | payer MEDICAID, SELFPAY | END 2021-10-02 11:44 | disposition home or self-care (01) | LOC: HO.MDS 11:43 | PROVIDERS: Visit Provider Physician Assistant | DX: Z29.14 Encounter for prophylactic rabies immune globulin (principal); S71.152D Open bite, left thigh, subsequent encounter; W54.0XXD Bitten by dog, subsequent encounter; Z20.3 Contact with and (suspected) exposure to rabies | CPT/HCPCS: 90471; 90675 ==

== ENCOUNTER 2022-04-29 13:22 | Emergency (ER) | payer MEDICAID, SELFPAY ==
--- NOTE | 2022-04-29 | ECG_ITS ---
Test Reason : CP Blood Pressure : / mmHG Vent. Rate : 090 BPM Atrial Rate : 090 BPM P-R Int : 154 ms QRS Dur : 090 ms QT Int : 374 ms P-R-T Axes : 038 030 022 degrees QTc Int : 457 ms Normal sinus rhythm with sinus arrhythmia Normal ECG When compared with ECG of 24-APR-2013 05:35, No significant change was found Referred By: Generic ED Physician Electronically Signed By:Mihir Martin
[2022-04-29 14:45] VITALS: BP 113/91; PULSE 89; RESP 18; TEMP 36.8; O2SAT 100; BMI 39.5
[2022-04-29 17:51] LABS: Influenza A PCR POSITIVE (Negative); Influenza B PCR NEGATIVE (Negative); Resp Syncy Virus RNA Qual PCR NEGATIVE (Negative); SARS COV2 PCR INHOUSE NEGATIVE (Negative)
--- NOTE | 2022-04-29 18:12 | ED.URI ---
HPI - URI/Sore Throat General Chief Complaint: Upper Respiratory Symptoms Stated Complaint: Chest pain Time Seen by Provider: 04/29/22 18:12 Source: patient Mode of arrival: ambulatory Limitations: no limitations History of Present Illness HPI Narrative: Patient is 6 weeks complaining of cold symptoms for 3- 4 days since yesterday complaining of chest pain while taking a deep breath localized to mid chest with sore throat no fever no chills cough is getting better does have body aches patient's boyfriend was also sick with same symptoms last week Related Data Home Medications Medication Instructions Recorded Confirmed omeprazole 20 mg capsule,delayed 20 mg PO DAILY 04/19/21 release Previous Rx's Medication Instructions Recorded amoxicillin 875 mg-potassium 1 tab PO BID 5 days #10 tabs 09/13/21 clavulanate 125 mg tablet Allergies Allergy/AdvReac Type Severity Reaction Status Date / Time No Known Allergies Allergy Verified 04/29/22 14:45 [No Known Allergies*] Review of Systems Review of Systems: Yes all other systems are reviewed and are negative [facility] Past Medical History Medical History Meningitis Migraines Social History Social History Alcohol intake: never Advance Directives: No Advance Directives Information Provided: No Physical Exam Vital Signs: Vital Signs: Last Vital Signs Temp 98.3 F 04/29/22 14:45 Pulse 89 04/29/22 14:45 Resp 18 04/29/22 14:45 BP 113/91 H 04/29/22 14:45 Pulse Ox 100 04/29/22 14:45 O2 Del Method 04/29/22 14:45 BMI result Body Mass Index 39.5 Appearance: Alert. Oriented X3. No acute distress. Eyes: No pallor or icterus ENT: Pharynx normal. Oral Mucosa moist Neck: Normal inspection. Neck supple. CVS: Normal heart rate and rhythm. Pulses normal. Respiratory: No respiratory distress. Equal air entry bilateral, no wheezing/rales/rhonchi mid chest wall tenderness++ Abdomen: Soft and nontender. Bowel sounds are present, no mass palpable, no CVA tenderness Skin: Skin warm and dry. Normal skin color. Normal skin turgor. Extremities: No lower extremity edema. No calf tenderness Neuro: Oriented X 3. Medical Decision Making Lab Data MDM Lab Attestation statement: I reviewed the patient's lab results. Labs: Lab Results 04/29/22 Range/Units 16:57 Influenza Type A (PCR) POSITIVE A (Negative) Influenza Type B (PCR) NEGATIVE (Negative) RSV RNA Qual (PCR) NEGATIVE (Negative) SARS-CoV-2 RNA (RT-PCR) NEGATIVE (Negative) Independent Interpretation I performed an independent interpretation of an: EKG Interpretation: Normal sinus rhythm heart rate 84 beats per minute normal interval normal axis no acute ST T wave changes no acute ischemia Discharge Plan Discharge Clinical Impression: Influenza Patient Disposition: Home, Self-Care Instructions: Influenza (ED) Additional Instructions: Tylenol for pain Drink plenty of fluids, drink viviana tea Avoid cough drops as you are Prescriptions: No Action amoxicillin-pot clavulanate 875-125 mg tablet 1 tab PO BID 5 Days Qty: 10 0RF omeprazole 20 mg capsule,delayed release(DR/EC) 20 mg PO DAILY Interventions: ED Discharge Assessment Last Done: 04/29/22 18:22 Discharge Date/Time: 04/29/22 18:28
== END 2022-04-29 18:28 | disposition home or self-care (01) ==
LOC: HO.ED 18:22
PROVIDERS: Emergency Provider Internal Medicine; PCP Registered Nurse
DX: O98.511 Other viral diseases complicating pregnancy, first trimester (principal); J11.1 Influenza due to unidentified influenza virus with other respiratory manifestations; Z3A.01 Less than 8 weeks gestation of pregnancy; Z20.822 Contact with and (suspected) exposure to COVID-19
CPT/HCPCS: 0241U; 93005; 99283

== ENCOUNTER 2022-06-12 12:47 | Emergency (ER) | payer MEDICAID, SELFPAY ==
--- NOTE | ~2022-06-12 | US_ITS ---
EXAMINATION: ULTRASOUND OB TRANSVAGINAL, LIMITED CLINICAL INFORMATION: Rule out left ovarian torsion, 11 weeks 4 days pre COMPARISON: Ultrasound from the same date at 2:23 PM TECHNIQUE: Real-time ultrasound was performed transvaginally for assessment of the left ovary. FINDINGS: Sonographic images demonstrate a normal size left ovary (2.4 x 1.4 x 1.7 cm) with normal venous and arterial waveforms on spectral Doppler. Normal blood flow on color Doppler as well. No suspicious abnormalities. No ovarian cysts or lesions. US/US pelvic ovarian doppler IMPRESSION: Normal sonographic assessment of the left ovary without evidence of torsion.
--- NOTE | ~2022-06-12 | US_ITS ---
EXAMINATION: US OBSTETRICAL ULTRASOUND CLINICAL INFORMATION: Lower abdominal pain, positive test. COMPARISON: Pelvic ultrasound dated 04/15/2021. LMP: 03/24/2022. Gestational age by maternal multiple dates is 11 weeks, 3 days. Estimated date of delivery by maternal dates is 12/29/2022. TECHNIQUE: Multiple 2-D grayscale and Doppler ultrasound images of the pelvis were obtained. FINDINGS: There is a single intrauterine gestational sac with visible yolk sac, embryo/fetus, and cardiac activity. There is no significant subchorionic hemorrhage or hematoma. HR: 160 beats per minute. CRL (crown rump length): 4.70 cm (11 weeks, 4 days +/- 4 days). NOAH (estimated date of delivery): 12/28/2022 +/- 4 days. MATERNAL ADNEXA: The right maternal ovary measures 2.5 x 2.0 x 2.4 cm. The left maternal ovary was not confidently identified. No left adnexal abnormality. There is no significant maternal adnexal mass. No maternal pelvic ascites. US/US OB <= 14 weeks fetus IMPRESSION: 1. Single intrauterine gestation with ultrasound gestational age of 11 weeks, 4 days +/- 4 days. Continued short-term obstetric follow-up is recommended as clinically indicated. If pain persists or worsens, short-term repeat pelvic ultrasound is recommended as clinically indicated as well.
--- NOTE | ~2022-06-12 | US_ITS ---
EXAMINATION: ULTRASOUND OB TRANSVAGINAL, LIMITED CLINICAL INFORMATION: Rule out left ovarian torsion, 11 weeks 4 days pre COMPARISON: Ultrasound from the same date at 2:23 PM TECHNIQUE: Real-time ultrasound was performed transvaginally for assessment of the left ovary. FINDINGS: Sonographic images demonstrate a normal size left ovary (2.4 x 1.4 x 1.7 cm) with normal venous and arterial waveforms on spectral Doppler. Normal blood flow on color Doppler as well. No suspicious abnormalities. No ovarian cysts or lesions. US/US OB transvaginal IMPRESSION: Normal sonographic assessment of the left ovary without evidence of torsion.
--- NOTE | 2022-06-12 12:56 | ED.ABDPAIN ---
HPI - Abdominal Pain General Chief Complaint: Nausea/Vomiting/Diarrhea <Mary Ann Martínez NP - Last Filed: 06/12/22 13:00> Stated Complaint: 3 months , dehydrated, fatigue, weak <Mary Ann Martínez NP - Last Filed: 06/12/22 13:00> Time Seen by Provider: 06/12/22 12:56 <Mary Ann Martínez NP - Last Filed: 06/12/22 13:00> Source: patient and other (Bogdan Her) <Joby Ramsay MD - Last Filed: 06/12/22 21:51> Mode of arrival: ambulatory <Joby Ramsay MD - Last Filed: 06/12/22 21:51> Limitations: no limitations <Joby Ramsay MD - Last Filed: 06/12/22 21:51> History of Present Illness HPI narrative: 27-year-old female who presents emergency department for evaluation of nausea, vomiting, abdominal pain, lightheadedness, dizziness, fever and chills. The patient is 11 weeks 6 days based on ED the of 12/27/2022, . Patient states that she has had nausea and vomiting for 2-3 days with not had any oral intake except for small sips of water. She states that last night she had a sudden onset of lower abdominal pain. She points to her suprapubic area when asked to localize the pain. She states the pain is been constant since onset, the pain is a squeezing sensation which is greater than 10/10. She states that she has been feeling dizzy, lightheaded. She has had subjective fever and chills. She denied rhinorrhea, sore throat, cough, myalgias arthralgias. She states she had dysuria at the end of urination with a foul smelling urine. She has not had any vaginal discharge. She states that her urine is also very dark. The patient has been taking Zofran ODT with no relief of her nausea vomiting. She also states that she has a diffuse, constant, throbbing headache. She took Tylenol 4 days ago but is not taking any Tylenol since then. The patient saw her OBGYN on 06/07/2022 (5 days prior) and I was able to view the patient's portal data. There was no urinalysis but the patient did have a urine culture that grew greater than 100,000 colony-forming units coag-negative staph not saprophyticus. Patient's GC chlamydia tests were negative. Patient's syphilis screen was negative. Patient's blood type was O-positive. Hepatitis-B and hepatitis-C screens were negative. <Joby Ramsay MD - Last Filed: 06/12/22 21:51> Related Data Home Medications: Home Medications Medication Instructions Recorded Confirmed omeprazole 20 mg capsule,delayed 20 mg PO DAILY 04/19/21 release Previous Rx's Medication Instructions Recorded amoxicillin 875 mg-potassium 1 tab PO BID 5 days #10 tabs 09/13/21 clavulanate 125 mg tablet amoxicillin 500 mg capsule 1,000 mg PO Q12H 5 days #20 caps 06/12/22 metoclopramide HCl 10 mg tablet 10 mg PO Q6H PRN nausea and 06/12/22 (Reglan) vomiting #14 tabs <Mary Ann Martínez NP - Last Filed: 06/12/22 13:00> Allergies/Adverse Reactions: Allergies Allergy/AdvReac Type Severity Reaction Status Date / Time No Known Allergies Allergy Verified 04/29/22 14:45 [No Known Allergies*] <Mary Ann Martínez NP - Last Filed: 06/12/22 13:00> Review of Systems Review of Systems Yes all other systems are reviewed and are negative <Joby Ramsay MD - Last Filed: 06/12/22 21:51> [facility] Past Medical History [facility] Narrative: Past medical history: None. Past surgical history: None. Social history: She is engaged in her fiance Bogdan was here in the emergency department with her. She denies tobacco use. She denies drug use. She denies alcohol use. <Joby Ramsay MD - Last Filed: 06/12/22 21:51> Medical History: Medical History Meningitis Migraines <Mary Ann Martínez NP - Last Filed: 06/12/22 13:00> Social History Social History: Social History Alcohol intake: never Smoked in Last 30 Days: No Use of substances other than those prescribed or required for medical reasons: No Advance Directives: No Advance Directives Information Provided: Yes <Mary Ann Martínez NP - Last Filed: 06/12/22 13:00> Physical Exam ED Vital Signs: Vital Signs - 24 hr 06/12/22 12:57 06/12/22 17:46 06/12/22 20:20 Temperature 98 F 98.1 F 98.3 F Pulse Rate 109 H 85 93 Respiratory Rate 19 20 18 Blood Pressure 146/89 H 112/73 117/69 Pulse Oximetry 98 100 99 Oxygen Delivery Method Room Air Room Air Room Air 06/12/22 20:59 06/12/22 21:00 Temperature Pulse Rate 103 H Respiratory Rate 16 16 Blood Pressure 114/70 Pulse Oximetry Oxygen Delivery Method BMI result Body Mass Index 38.0 <Mary Ann Martínez NP - Last Filed: 06/12/22 13:00> Vital Signs - 24 hr 06/12/22 12:57 06/12/22 17:46 06/12/22 20:20 Temperature 98 F 98.1 F 98.3 F Pulse Rate 109 H 85 93 Respiratory Rate 19 20 18 Blood Pressure 146/89 H 112/73 117/69 Pulse Oximetry 98 100 99 Oxygen Delivery Method Room Air Room Air Room Air 06/12/22 20:59 06/12/22 21:00 Temperature Pulse Rate 103 H Respiratory Rate 16 16 Blood Pressure 114/70 Pulse Oximetry Oxygen Delivery Method BMI result Body Mass Index 38.0 <Joby Ramsay MD - Last Filed: 06/12/22 21:51> Const General: cooperative and no acute distress <Joby Ramsay MD - Last Filed: 06/12/22 21:51> Orientation/consciousness: oriented to person and oriented to place <Joby Ramsay MD - Last Filed: 06/12/22 21:51> Limitations: no limitations <Joby Ramsay MD - Last Filed: 06/12/22 21:51> HENMT Head: Yes normal to inspection, Yes normocephalic and Yes atraumatic <Joby Ramsay MD - Last Filed: 06/12/22 21:51> Ears: external ears normal <Joby Ramsay MD - Last Filed: 06/12/22 21:51> General nose exam: Normal external nose present <Joby Ramsay MD - Last Filed: 06/12/22 21:51> Face and sinus: Yes normal facial exam <Joby Ramsay MD - Last Filed: 06/12/22 21:51> Mouth: Normal oral and palatal mucosa present <Joby Ramsay MD - Last Filed: 06/12/22 21:51> Throat: Yes posterior oropharynx normal <Joby Ramsay MD - Last Filed: 06/12/22 21:51> Eyes General: appearance normal, both eyes and all related structures <Joby Ramsay MD - Last Filed: 06/12/22 21:51> Pupils: Equal, round and reactive pupils present <Joby Ramsay MD - Last Filed: 06/12/22 21:51> Neck Neck: Yes normal visual inspection, Yes no lymphadenopathy, Yes trachea midline and Yes supple <Joby Ramsay MD - Last Filed: 06/12/22 21:51> Chest Chest palpation & inspection: normal inspection of the chest and normal palpation of entire chest wall <Joby Ramsay MD - Last Filed: 06/12/22 21:51> Resp Effort & Inspection: normal respiratory effort and able to speak in complete sentences <Joby Ramsay MD - Last Filed: 06/12/22 21:51> Auscultation: clear to auscultation bilaterally <MD Barron Gaines Last Filed: 06/12/22 21:51> Cardio Rate: regular rate <Joby Ramsay MD - Last Filed: 06/12/22 21:51> Rhythm: regular rhythm <Joby Ramsay MD - Last Filed: 06/12/22 21:51> Heart sounds: S1 normal heart sound present, S2 normal heart sound present and no murmurs <Joby Ramsay MD - Last Filed: 02/08/23 21:51> GI Inspection: Yes normal to inspection <Joby Ramsay MD - Last Filed: 06/12/22 21:51> Palpation (GI): Soft to palpation, Tenderness to palpation present (GI) suprapubicly (Moderate) and no guarding <Joby Ramsay MD - Last Filed: 06/12/22 21:51> Auscultation: normal bowel sounds <Joby Ramsay MD - Last Filed: 06/12/22 21:51> General: Yes no CVA tenderness <Joby Ramsay MD - Last Filed: 06/12/22 21:51> Back/Spine/Pelvis Back: no CVA tenderness <Joby Ramsay MD - Last Filed: 06/12/22 21:51> Skin General skin exam: no rashes or lesions noted <Joby Ramsay MD - Last Filed: 06/12/22 21:51> Neuro General: oriented to person and oriented to place <Joby Ramsay MD - Last Filed: 06/12/22 21:51> Cranial nerves: Yes CN's II-XII intact bilaterally and Yes Equal, round and reactive pupils present <Joby Ramsay MD - Last Filed: 06/12/22 21:51> Cognition (Neuro): normal cognition <Joby Ramsay MD - Last Filed: 06/12/22 21:51> Extrem General: Yes normal to inspection <Joby Ramsay MD - Last Filed: 06/12/22 21:51> Psych Appearance: grossly normal <Joby Ramsay MD - Last Filed: 06/12/22 21:51> Speech and movement: Normal speech and movement present <Joby Ramsay MD - Last Filed: 06/12/22 21:51> Affect: normal affect <Joby Ramsay MD - Last Filed: 06/12/22 21:51> Attitude: cooperative <Joby Ramsay MD - Last Filed: 06/12/22 21:51> Course Course Course Narrative: This is rapid medical exam. Deferred additional HPI, ROS, PE to primary provider. 27 yo female healthy currently 3 months (NOAH 12/27) followed by [facility] here with complaints of vomiting, feeling weak/dizzy, lower abdominal pain. No vag bleeding. Per patient she has had US to confirm IUP. Taking zofran with continued symptoms. Will obtain labs, UA, US. VSS <Mary Ann Martínez NP - Last Filed: 06/12/22 13:00> Medical Decision Making Medical Decision Making [facility] Narrative: 27-year-old female 11 weeks 6 days based on NOAH 12/27/2022 who presents emergency department for evaluation of nausea vomiting, poor oral intake for 3-4 days despite taking Zofran ODT and suprapubic pain that started last night, is constant, squeezing, greater than 10/10. She is also complaining of a constant throbbing headache times several days. She has had subjective fever and chills as well with dysuria and a foul smelling urine. She has also noticed dark colored urine. Vital signs did reveal an elevated blood pressure of 146/89 with a pulse of 109. Patient's abdominal exam did reveal suprapubic tenderness. Patient's exam was otherwise unremarkable. Provider at triage did order laboratory evaluation as well as a coal hauler ultrasound evaluation pus than 14 weeks. 1748: My interpretation patient's laboratory evaluation and ultrasound findings are as follows: Elevated WBC 93468, low bicarb 19, elevated glucose 119, normal LFTs urinalysis 1+ leukocyte esterase otherwise unremarkable. Microscopic revealed 5-10 WBCs, 5-10 squamous cells, no bacteria. Quantitative beta-hCG was elevated at 101,735. Patient's ultrasound report was reviewed by me, the has a single intrauterine 11 weeks 4 days by measurements which correlates with her age by NOAH which is reassuring. Patient's right ovary was visualized and was normal, left ovary was not visualized. No obvious cause for the patient's pain noted on ultrasound. At this time I do not have a clear etiology for the patient's pain it is possible that she may have a urinary tract infection however she has no bacteria in her urine today, she did grow coag-negative staph 5 days prior but this is most likely skin contaminant. Her pain may be related to her nausea and vomiting Ovarian torsion still needs to be considered but I think it is less likely. I will obtain blood cultures and lactic acid on the patient. The patient will be treated with ceftriaxone 1 g IV for possible urinary tract infection. Patient's nausea and vomiting will be treated with Reglan and 10 mg IV and Benadryl 50 mg IV. She will be treated with lactated Ringer's x2 L and Tylenol 975 mg orally. 2013: The patient received morphine 4 mg IV x2 for pain and I did repeat her duplex ultrasound of her left ovary and there was no evidence for torsion which is reassuring. The patient's nausea has improved. At this time I do not have a clear etiology for the patient's pain, it is possible she may be having a miscarriage. I will discuss the patient's presentation with the covering OBGYN to discuss further management. 2142: Patient is feeling better after the above treatment. The [facility] O[facility]YN service never call me back at this time, the patient is feeling significantly better therefore I will discharge her to home. Patient was given a prescription for Reglan, she was advised to take Tylenol for pain. She was advised to contact her OBGYN in the morning for follow-up. Patient will be treated with amoxicillin 1000 mg every 12 hours for 5 days for possible urinary tract infection <Joby Ramsay MD - Last Filed: 06/12/22 21:51> Lab Data MDM Lab Attestation statement: I reviewed the patient's lab results. <Joby Ramsay MD - Last Filed: 06/12/22 21:51> Result Diagrams: 06/12/22 13:35 06/12/22 13:35 <Mary Ann Martínez NP - Last Filed: 06/12/22 13:00> Labs: Lab Results 06/12/22 06/12/22 06/12/22 Range/Units 13:35 13:35 13:35 WBC 12.7 H (4.8-10.8) X10*3/uL RBC 4.55 (4.20-5.50) X10*6/uL Hgb 12.4 (12.0-16.0) g/dl Hct 36.6 L (37.0-47.0) % MCV 80.4 (80.0-98.0) fL MCH 27.3 (27.0-33.0) pg MCHC 33.9 (31.0-35.0) g/dl RDW 14.2 (11.0-16.0) % Plt Count 359 (160-400) X10*3/uL MPV 10.6 (9.4-12.3) fL Immature Gran % (Auto) 0.3 (0.0-0.4) % Neut % (Auto) 86.9 H (45-73) % Lymph % (Auto) 8.6 L (20-40) % [place] % (Auto) 3.8 (2-11) % Eos % (Auto) 0.1 (0-4) % Baso % (Auto) 0.3 (0-2) % Lymph # (Auto) 1.1 L (1.2-4.9) X10*3/uL [place] # (Auto) 0.5 (0.1-1.2) X10*3/uL Eos # (Auto) 0.0 (0.0-0.4) X10*3/uL Baso # (Auto) 0.0 (0.0-0.2) X10*3/uL Abs Immat Gran (auto) 0.04 H (0.00-0.03) X10*3/uL Absolute Neuts (auto) 11.1 H (2.0-8.3) x10*3/uL Absolute Nucleated RBC 0.000 (0.0-0.012) X10*3/uL Nucleated RBC % (auto) 0.0 (0.0-0.2) /100WBC Sodium 136 (135-145) mmol/L Potassium 3.9 (3.3-5.1) mmol/L Chloride 105 (96-108) mmol/L Carbon Dioxide 19 L (22-29) mmol/L Anion Gap 16 (12-20) BUN 6 L (9-16) mg/dL Creatinine 0.64 (0.5-1.4) mg/dL Estim Creat Clear Calc 171.4 Estimated GFR > 60 Random Glucose 119 H (60-115) mg/dL Lactic Acid (0.5-2.0) mmol/L Calcium 8.9 (8.4-10.2) mg/dL Magnesium 1.9 (1.6-2.6) mg/dL Total Bilirubin 0.9 (0.0-1.0) mg/dL Direct Bilirubin 0.3 (0.0-0.5) mg/dL AST 20 (5-31) U/L ALT 22 (0-31) U/L Alkaline Phosphatase 91 (39-117) U/L Total Protein 7.0 (6.5-8.0) g/dL Albumin 3.8 (3.5-5.0) g/dL Beta HCG, Quant 156571 mIU/mL Urine Color Yellow Urine Appearance Clear Urine pH 6.0 (5.0-9.0) Ur Specific Asher 1.025 (1.005-1.025) Urine Protein Trace (Neg-Trace) mg/dL Urine Glucose (UA) Negative (Negative) mg/dL Urine Ketones 80 (Negative) mg/dL Urine Blood Negative (Negative) Urine Nitrite Negative (Negative) Ur Leukocyte Esterase Small (1+) H (Negative) Urine RBC 0-2 (0-2) /HPF Urine WBC 6-10 H (0-5) /HPF Ur Squamous Epith Cells 6-10 (0-2) /HPF Urine Bacteria None Seen (None Seen) Hyaline Casts 0-2 (0-2) /LPF Influenza Type A (PCR) (Negative) Influenza Type B (PCR) (Negative) RSV RNA Qual (PCR) (Negative) SARS-CoV-2 RNA (RT-PCR) (Negative) 06/12/22 06/12/22 Range/Units 18:16 18:16 WBC (4.8-10.8) X10*3/uL RBC (4.20-5.50) X10*6/uL Hgb (12.0-16.0) g/dl Hct (37.0-47.0) % MCV (80.0-98.0) fL MCH (27.0-33.0) pg MCHC (31.0-35.0) g/dl RDW (11.0-16.0) % Plt Count (160-400) X10*3/uL MPV (9.4-12.3) fL Immature Gran % (Auto) (0.0-0.4) % Neut % (Auto) (45-73) % Lymph % (Auto) (20-40) % [place] % (Auto) (2-11) % Eos % (Auto) (0-4) % Baso % (Auto) (0-2) % Lymph # (Auto) (1.2-4.9) X10*3/uL [place] # (Auto) (0.1-1.2) X10*3/uL Eos # (Auto) (0.0-0.4) X10*3/uL Baso # (Auto) (0.0-0.2) X10*3/uL Abs Immat Gran (auto) (0.00-0.03) X10*3/uL Absolute Neuts (auto) (2.0-8.3) x10*3/uL Absolute Nucleated RBC (0.0-0.012) X10*3/uL Nucleated RBC % (auto) (0.0-0.2) /100WBC Sodium (135-145) mmol/L Potassium (3.3-5.1) mmol/L Chloride (96-108) mmol/L Carbon Dioxide (22-29) mmol/L Anion Gap (12-20) BUN (9-16) mg/dL Creatinine (0.5-1.4) mg/dL Estim Creat Clear Calc Estimated GFR Random Glucose (60-115) mg/dL Lactic Acid 1.0 (0.5-2.0) mmol/L Calcium (8.4-10.2) mg/dL Magnesium (1.6-2.6) mg/dL Total Bilirubin (0.0-1.0) mg/dL Direct Bilirubin (0.0-0.5) mg/dL AST (5-31) U/L ALT (0-31) U/L Alkaline Phosphatase (39-117) U/L Total Protein (6.5-8.0) g/dL Albumin (3.5-5.0) g/dL Beta HCG, Quant mIU/mL Urine Color Urine Appearance Urine pH (5.0-9.0) Ur Specific Asher (1.005-1.025) Urine Protein (Neg-Trace) mg/dL Urine Glucose (UA) (Negative) mg/dL Urine Ketones (Negative) mg/dL Urine Blood (Negative) Urine Nitrite (Negative) Ur Leukocyte Esterase (Negative) Urine RBC (0-2) /HPF Urine WBC (0-5) /HPF Ur Squamous Epith Cells (0-2) /HPF Urine Bacteria (None Seen) Hyaline Casts (0-2) /LPF Influenza Type A (PCR) NEGATIVE (Negative) Influenza Type B (PCR) NEGATIVE (Negative) RSV RNA Qual (PCR) NEGATIVE (Negative) SARS-CoV-2 RNA (RT-PCR) NEGATIVE (Negative) <Mary Ann Mauricio, [employer] - Last Filed: 06/12/22 13:00> Lab Results 06/12/22 06/12/22 06/12/22 Range/Units 13:35 13:35 13:35 WBC 12.7 H (4.8-10.8) X10*3/uL RBC 4.55 (4.20-5.50) X10*6/uL Hgb 12.4 (12.0-16.0) g/dl Hct 36.6 L (37.0-47.0) % MCV 80.4 (80.0-98.0) fL MCH 27.3 (27.0-33.0) pg MCHC 33.9 (31.0-35.0) g/dl RDW 14.2 (11.0-16.0) % Plt Count 359 (160-400) X10*3/uL MPV 10.6 (9.4-12.3) fL Immature Gran % (Auto) 0.3 (0.0-0.4) % Neut % (Auto) 86.9 H (45-73) % Lymph % (Auto) 8.6 L (20-40) % [place] % (Auto) 3.8 (2-11) % Eos % (Auto) 0.1 (0-4) % Baso % (Auto) 0.3 (0-2) % Lymph # (Auto) 1.1 L (1.2-4.9) X10*3/uL [place] # (Auto) 0.5 (0.1-1.2) X10*3/uL Eos # (Auto) 0.0 (0.0-0.4) X10*3/uL Baso # (Auto) 0.0 (0.0-0.2) X10*3/uL Abs Immat Gran (auto) 0.04 H (0.00-0.03) X10*3/uL Absolute Neuts (auto) 11.1 H (2.0-8.3) x10*3/uL Absolute Nucleated RBC 0.000 (0.0-0.012) X10*3/uL Nucleated RBC % (auto) 0.0 (0.0-0.2) /100WBC Sodium 136 (135-145) mmol/L Potassium 3.9 (3.3-5.1) mmol/L Chloride 105 (96-108) mmol/L Carbon Dioxide 19 L (22-29) mmol/L Anion Gap 16 (12-20) BUN 6 L (9-16) mg/dL Creatinine 0.64 (0.5-1.4) mg/dL Estim Creat Clear Calc 171.4 Estimated GFR > 60 Random Glucose 119 H (60-115) mg/dL Lactic Acid (0.5-2.0) mmol/L Calcium 8.9 (8.4-10.2) mg/dL Magnesium 1.9 (1.6-2.6) mg/dL Total Bilirubin 0.9 (0.0-1.0) mg/dL Direct Bilirubin 0.3 (0.0-0.5) mg/dL AST 20 (5-31) U/L ALT 22 (0-31) U/L Alkaline Phosphatase 91 (39-117) U/L Total Protein 7.0 (6.5-8.0) g/dL Albumin 3.8 (3.5-5.0) g/dL Beta HCG, Quant 943714 mIU/mL Urine Color Yellow Urine Appearance Clear Urine pH 6.0 (5.0-9.0) Ur Specific Asher 1.025 (1.005-1.025) Urine Protein Trace (Neg-Trace) mg/dL Urine Glucose (UA) Negative (Negative) mg/dL Urine Ketones 80 (Negative) mg/dL Urine Blood Negative (Negative) Urine Nitrite Negative (Negative) Ur Leukocyte Esterase Small (1+) H (Negative) Urine RBC 0-2 (0-2) /HPF Urine WBC 6-10 H (0-5) /HPF Ur Squamous Epith Cells 6-10 (0-2) /HPF Urine Bacteria None Seen (None Seen) Hyaline Casts 0-2 (0-2) /LPF Influenza Type A (PCR) (Negative) Influenza Type B (PCR) (Negative) RSV RNA Qual (PCR) (Negative) SARS-CoV-2 RNA (RT-PCR) (Negative) 06/12/22 06/12/22 Range/Units 18:16 18:16 WBC (4.8-10.8) X10*3/uL RBC (4.20-5.50) X10*6/uL Hgb (12.0-16.0) g/dl Hct (37.0-47.0) % MCV (80.0-98.0) fL MCH (27.0-33.0) pg MCHC (31.0-35.0) g/dl RDW (11.0-16.0) % Plt Count (160-400) X10*3/uL MPV (9.4-12.3) fL Immature Gran % (Auto) (0.0-0.4) % Neut % (Auto) (45-73) % Lymph % (Auto) (20-40) % [place] % (Auto) (2-11) % Eos % (Auto) (0-4) % Baso % (Auto) (0-2) % Lymph # (Auto) (1.2-4.9) X10*3/uL [place] # (Auto) (0.1-1.2) X10*3/uL Eos # (Auto) (0.0-0.4) X10*3/uL Baso # (Auto) (0.0-0.2) X10*3/uL Abs Immat Gran (auto) (0.00-0.03) X10*3/uL Absolute Neuts (auto) (2.0-8.3) x10*3/uL Absolute Nucleated RBC (0.0-0.012) X10*3/uL Nucleated RBC % (auto) (0.0-0.2) /100WBC Sodium (135-145) mmol/L Potassium (3.3-5.1) mmol/L Chloride (96-108) mmol/L Carbon Dioxide (22-29) mmol/L Anion Gap (12-20) BUN (9-16) mg/dL Creatinine (0.5-1.4) mg/dL Estim Creat Clear Calc Estimated GFR Random Glucose (60-115) mg/dL Lactic Acid 1.0 (0.5-2.0) mmol/L Calcium (8.4-10.2) mg/dL Magnesium (1.6-2.6) mg/dL Total Bilirubin (0.0-1.0) mg/dL Direct Bilirubin (0.0-0.5) mg/dL AST (5-31) U/L ALT (0-31) U/L Alkaline Phosphatase (39-117) U/L Total Protein (6.5-8.0) g/dL Albumin (3.5-5.0) g/dL Beta HCG, Quant mIU/mL Urine Color Urine Appearance Urine pH (5.0-9.0) Ur Specific Asher (1.005-1.025) Urine Protein (Neg-Trace) mg/dL Urine Glucose (UA) (Negative) mg/dL Urine Ketones (Negative) mg/dL Urine Blood (Negative) Urine Nitrite (Negative) Ur Leukocyte Esterase (Negative) Urine RBC (0-2) /HPF Urine WBC (0-5) /HPF Ur Squamous Epith Cells (0-2) /HPF Urine Bacteria (None Seen) Hyaline Casts (0-2) /LPF Influenza Type A (PCR) NEGATIVE (Negative) Influenza Type B (PCR) NEGATIVE (Negative) RSV RNA Qual (PCR) NEGATIVE (Negative) SARS-CoV-2 RNA (RT-PCR) NEGATIVE (Negative) <Joby Ramsay MD - Last Filed: 06/12/22 21:51> Radiology Impression Discussion of test interpretation with radiology: I have reviewed the radiologist's reading. <Joby Ramsay MD - Last Filed: 06/12/22 21:51> Radiologist Impression: EXAMINATION: US OBSTETRICAL ULTRASOUND CLINICAL INFORMATION: Lower abdominal pain, positive test. COMPARISON: Pelvic ultrasound dated 04/15/2021. LMP: 03/24/2022. Gestational age by maternal multiple dates is 11 weeks, 3 days. Estimated date of delivery by maternal dates is 12/29/2022. TECHNIQUE: Multiple 2-D grayscale and Doppler ultrasound images of the pelvis were obtained. FINDINGS: There is a single intrauterine gestational sac with visible yolk sac, embryo/fetus, and cardiac activity. There is no significant subchorionic hemorrhage or hematoma. HR: 160 beats per minute. CRL (crown rump length): 4.70 cm (11 weeks, 4 days +/- 4 days). NOAH (estimated date of delivery): 12/28/2022 +/- 4 days. MATERNAL ADNEXA: The right maternal ovary measures 2.5 x 2.0 x 2.4 cm. The left maternal ovary was not confidently identified. No left adnexal abnormality. There is no significant maternal adnexal mass. No maternal pelvic ascites. US/US OB <= 14 weeks fetus IMPRESSION: 1. Single intrauterine gestation with ultrasound gestational age of 11 weeks, 4 days +/- 4 days. Continued short-term obstetric follow-up is recommended as clinically indicated. If pain persists or worsens, short-term repeat pelvic ultrasound is recommended as clinically indicated as well. Dictated By:Matt Monsalve MDSigned By:<Electronically signed by Matt Monsalve MD in [place]>06/12/22 1520 <Joby Ramsay MD - Last Filed: 06/12/22 21:51> Medications Administered Discontinued Medications Generic Name Dose Route Start Last Admin Trade Name Freq PRN Reason Stop Dose Admin Acetaminophen 975 mg 06/12/22 17:35 06/12/22 19:11 Acetaminophen 325 Mg Tablet PO 06/12/22 17:36 975 mg ONCE STA Administration Diphenhydramine HCl 50 mg 06/12/22 17:35 06/12/22 18:01 Diphenhydramine Hcl 50 Mg/Ml Vial IVPUSH 06/12/22 17:36 50 mg ONCE STA Administration Lactated Ringer's 1,000 mls @ 999 mls/hr 06/12/22 17:45 06/12/22 21:20 Lr IV 06/12/22 18:45 Infused .Q1H1M STEPHAN Infusion Ceftriaxone Sodium 1 gm/ 50 mls @ 100 mls/hr 06/12/22 17:36 06/12/22 18:47 Sodium Chloride IV 06/12/22 18:05 Infused ONCE ONE Infusion Metoclopramide HCl 10 mg 06/12/22 17:35 06/12/22 18:01 Metoclopramide Hcl 10 Mg/2 Ml Vial IVPUSH 06/12/22 17:36 10 mg ONCE STA Administration Morphine Sulfate 4 mg 06/12/22 18:11 06/12/22 18:25 Morphine Sulfate 4 Mg/Ml Cartridge IVPUSH 06/12/22 18:12 4 mg ONCE STA Administration Protocol Morphine Sulfate 4 mg 06/12/22 20:11 06/12/22 20:59 Morphine Sulfate 4 Mg/Ml Cartridge IVPUSH 06/12/22 20:12 4 mg ONCE STA Administration Protocol <Mary Ann Martínez NP - Last Filed: 06/12/22 13:00> Medications Administered Discontinued Medications Generic Name Dose Route Start Last Admin Trade Name Chuck PRN Reason Stop Dose Admin Acetaminophen 975 mg 06/12/22 17:35 06/12/22 19:11 Acetaminophen 325 Mg Tablet PO 06/12/22 17:36 975 mg ONCE STA Administration Diphenhydramine HCl 50 mg 06/12/22 17:35 06/12/22 18:01 Diphenhydramine Hcl 50 Mg/Ml Vial IVPUSH 06/12/22 17:36 50 mg ONCE STA Administration Lactated Ringer's 1,000 mls @ 999 mls/hr 06/12/22 17:45 06/12/22 21:20 Lr IV 06/12/22 18:45 Infused .[id number] STEPHAN Infusion Ceftriaxone Sodium 1 gm/ 50 mls @ 100 mls/hr 06/12/22 17:36 06/12/22 18:47 Sodium Chloride IV 06/12/22 18:05 Infused ONCE ONE Infusion Metoclopramide HCl 10 mg 06/12/22 17:35 06/12/22 18:01 Metoclopramide Hcl 10 Mg/2 Ml Vial IVPUSH 06/12/22 17:36 10 mg ONCE STA Administration Morphine Sulfate 4 mg 06/12/22 18:11 06/12/22 18:25 Morphine Sulfate 4 Mg/Ml Cartridge IVPUSH 06/12/22 18:12 4 mg ONCE STA Administration Protocol Morphine Sulfate 4 mg 06/12/22 20:11 06/12/22 20:59 Morphine Sulfate 4 Mg/Ml Cartridge IVPUSH 06/12/22 20:12 4 mg ONCE STA Administration Protocol <Joby Ramsay MD - Last Filed: 06/12/22 21:51> Discharge Plan Discharge Clinical Impression: Abdominal pain during intrauterine , Vomiting, Acute dehydration, Urinary tract infection <Mary Ann Martínez NP - Last Filed: 06/12/22 13:00> Patient Disposition: Home, Self-Care <Mary Ann Martínez NP - Last Filed: 06/12/22 13:00> Instructions: Abdominal Pain in (ED), Urinary Tract Infection in (ED) <Mary Ann Martínez NP - Last Filed: 06/12/22 13:00> Additional Instructions: Your blood work was unremarkable. The ultrasound your revealed a single intrauterine measuring 11 weeks and 4 days which correlates with your delivery date which is reassuring. Both of your ovaries were visualized and there was no evidence for ovarian cyst or twisting of your ovaries (ovarian torsion) as the cause of your pain. Your urinalysis did reveal white blood cells but no bacteria, you did grow greater than 100,000 CFU coag-negative staph in your urine culture from your doctor, this could be skin contaminant but I am concerned that you might have a urine infection therefore I am treating for urine infection. You received ceftriaxone 1 g IV. Tomorrow start amoxicillin 500 mg pills, 2 pills every 12 hours for 5 days I want you to take the following 2 medications together every 6 hours as needed for nausea or vomiting. Reglan (metoclopramide) in 10 mg, 1 pill Benadryl 25 mg, 2 pills These medications will make you sleepy, do not drive or work after taking these medications. Call your OBGYN providers tomorrow for a follow-up tomorrow Please return to the emergency department if your symptoms get worse or if you develop any symptoms that are concerning to you. <Mary Ann Martínze NP - Last Filed: 06/12/22 13:00> Prescriptions: New amoxicillin 500 mg capsule 1,000 mg PO Q12H 5 Days Qty: 20 0RF metoclopramide HCl [Reglan] 10 mg tablet 10 mg PO Q6H PRN (Reason: nausea and vomiting) Qty: 14 0RF No Action amoxicillin-pot clavulanate 875-125 mg tablet 1 tab PO BID 5 Days Qty: 10 0RF omeprazole 20 mg capsule,delayed release(DR/EC) 20 mg PO DAILY <Mary Ann Martínez NP - Last Filed: 06/12/22 13:00>
[2022-06-12 12:57] VITALS: BP 146/89; PULSE 109; RESP 19; TEMP 36.6; O2SAT 98; BMI 38.0
[2022-06-12 13:39] LABS: MANUAL DIFF FLAG NO
[2022-06-12 13:41] LABS: Basophils Percent Auto 0.3 % (0-2); Eosinophils Percent Auto 0.1 % (0-4); Hematocrit 36.6 % (37.0-47.0); Hemoglobin 12.4 g/dl (12.0-16.0); Imm Gran Abs Auto 0.04 X10*3/uL (0.00-0.03); Imm Gran Pct Auto 0.3 % (0.0-0.4); Lymphocytes Absolute Auto 1.1 X10*3/uL (1.2-4.9); Lymphocytes Percent Auto 8.6 % (20-40); Mean Corpuscular HGB Conc 33.9 g/dl (31.0-35.0); Mean Corpuscular Hemoglobin 27.3 pg (27.0-33.0); Mean Corpuscular Volume 80.4 fL (80.0-98.0); Mean Platelet Volume 10.6 fL (9.4-12.3); Monocytes Absolute Auto 0.5 X10*3/uL (0.1-1.2); Monocytes Percent Auto 3.8 % (2-11); Neutrophils Absolute Auto 11.1 x10*3/uL (2.0-8.3); Neutrophils Percent Auto 86.9 % (45-73); Platelet Count 359 X10*3/uL (160-400); Red Blood Count 4.55 X10*6/uL (4.20-5.50); Red Cell Distribution Width 14.2 % (11.0-16.0); White Blood Count 12.7 X10*3/uL (4.8-10.8)
[2022-06-12 13:42] LABS: Appearance Urine Clear; Color Urine Yellow; Glucose Urine UA Negative (Negative); Leukocyte Esterase Urine Small (1+) (Negative); Nitrite Urine Negative (Negative); Specific Gravity - Urine 1.025 (1.005-1.025); UMIC TRIGGER UACC YES; Urine Blood Negative (Negative); Urine Ketones 80 mg/dL (Negative); Urine Protein Trace mg/dL (Neg-Trace)
[2022-06-12 14:09] LABS: Alanine Aminotransferase 22 U/L (0-31); Albumin Level 3.8 g/dL (3.5-5.0); Alkaline Phosphatase 91 U/L (39-117); Anion Gap 16 (12-20); Aspartate Amino Transferase 20 U/L (5-31); Bilirubin Direct 0.3 mg/dL (0.0-0.5); Bilirubin Total 0.9 mg/dL (0.0-1.0); Blood Urea Nitrogen 6 mg/dL (9-16); Calcium 8.9 mg/dL (8.4-10.2); Carbon Dioxide 19 mmol/L (22-29); Chloride 105 mmol/L (96-108); Creatinine Clr Calc Pharmacy 171.4; Estimated Glomerular Filt Rate > 60; Glucose Random 119 mg/dL (60-115); Magnesium 1.9 mg/dL (1.6-2.6); Potassium 3.9 mmol/L (3.3-5.1); Sodium 136 mmol/L (135-145)
[2022-06-12 14:42] LABS: HCG Quantitative 101735 mIU/mL
[2022-06-12 15:14] LABS: Bacteria Urine None Seen (None Seen); Hyaline Casts Urine 0-2 /LPF (0-2); RBC Urine 0-2 /HPF (0-2); UACC Culture Trigger YES
[2022-06-12 17:46] VITALS: BP 112/73; PULSE 85; RESP 20; TEMP 36.7; O2SAT 100
[2022-06-12] MEDS: diphenhydrAMINE HCL 50 MG/ML VIAL IVPUSH (18:01)
[2022-06-12] MEDS: Metoclopramide HCl 10 MG/2 ML VIAL IVPUSH (18:01)
[2022-06-12] MEDS: Morphine Sulfate 4 MG/ML CARTRIDGE IVPUSH ×2 (18:25→20:59)
[2022-06-12] MEDS: cefTRIAXone sodium 1 GM in 0.9 % Sodium Chloride 50 ML IV (18:25)
[2022-06-12 19:03] LABS: Influenza A PCR NEGATIVE (Negative); Influenza B PCR NEGATIVE (Negative); Resp Syncy Virus RNA Qual PCR NEGATIVE (Negative); SARS COV2 PCR INHOUSE NEGATIVE (Negative)
[2022-06-12] MEDS: Acetaminophen 325 MG TABLET 975 MG PO (19:11)
[2022-06-12] MEDS: Lactated Ringers 1,000 ML 999 ML IV (19:11)
--- NOTE | 2022-06-12 19:19 | PC.NURSE ---
Pt medicated per JUL. Pt c/o 12/12 bilateral lower abdominal pain. Nurse provided pillow for pt and warm blanket over abdomen to aid with abdominal pain. Pt resting comfortably in bed male significant other at pt bedside.
[2022-06-12 20:20] VITALS: BP 117/69; PULSE 93; RESP 18; TEMP 36.8; O2SAT 99
[2022-06-12 20:59] VITALS: RESP 16
[2022-06-12 21:00] VITALS: BP 114/70; PULSE 103; RESP 16
== END 2022-06-12 22:14 | disposition home or self-care (01) ==
PROVIDERS: Nurse Practitioner Family; Emergency Provider Emergency Medicine Emergency Medical Services; PCP Registered Nurse
DX: O21.9 Vomiting of pregnancy, unspecified (principal); O23.41 Unspecified infection of urinary tract in pregnancy, first trimester; N39.0 Urinary tract infection, site not specified; O26.891 Other specified pregnancy related conditions, first trimester; R10.30 Lower abdominal pain, unspecified; O99.281 Endocrine, nutritional and metabolic diseases complicating pregnancy, first trimester; E86.0 Dehydration; Z3A.11 11 weeks gestation of pregnancy; Z20.822 Contact with and (suspected) exposure to COVID-19; Z20.828 Contact with and (suspected) exposure to other viral communicable diseases
CPT/HCPCS: 0241U; 36415; 76801; 76817; 80048; 80076; 81001; 83605; 83735; 84702; 85025; 87040; 87086; 93975; 96361; 96365; 96375; 96376; 99284; J0696; J1200; J2270; J2765

== ENCOUNTER 2023-10-17 13:14 | Outpatient (REF) | payer MEDICAID, SELFPAY ==
[2023-10-17 14:33] LABS: Hematocrit 36.6 % (37.0-47.0); Hemoglobin 11.9 g/dl (12.0-16.0); Mean Corpuscular HGB Conc 32.5 g/dl (31.0-35.0); Mean Corpuscular Volume 76.9 fL (80.0-98.0); Mean Platelet Volume 12.2 fL (9.4-12.3); Platelet Count 299 X10*3/uL (160-400); Red Blood Count 4.76 X10*6/uL (4.20-5.50); Red Cell Distribution Width 16.4 % (11.0-16.0); White Blood Count 10.9 X10*3/uL (4.8-10.8)
[2023-10-17 14:42] LABS: Estimated Average Glucose 111 mg/dL; Hemoglobin A1c % 5.5 % (<6.0)
[2023-10-17 15:01] LABS: Alanine Aminotransferase 49 U/L (0-31); Albumin Level 4.1 g/dL (3.5-5.0); Alkaline Phosphatase 186 U/L (39-117); Anion Gap 13 (12-20); Aspartate Amino Transferase 43 U/L (5-31); Bilirubin Total 0.7 mg/dL (0.0-1.0); Blood Urea Nitrogen 10 mg/dL (9-16); Carbon Dioxide 22 mmol/L (22-29); Chloride 108 mmol/L (96-108); Cholesterol 168 mg/dL (<200); Estimated Glomerular Filt Rate > 60; Glucose Random 98 mg/dL (60-115); HDL Cholesterol 58 mg/dL (>40); Iron 46 mcg/dL (30-160); LDL Cholesterol Calculated 96 mg/dL (<100); Percent Iron Saturation 13 % (15-50); Potassium 3.7 mmol/L (3.3-5.1); Sodium 139 mmol/L (135-145); Total Iron Binding Capacity 341 mcg/dL (228-428); Total Protein 7.7 g/dL (6.5-8.0); Triglycerides 70 mg/dL (<150); Unsaturated Iron Binding 295 ug/dL
[2023-10-17 15:17] LABS: Ferritin 15 ng/mL (10-122); TSH reflex Free T4 0.76 uIU/mL (0.32-4.0); Vitamin D 25-OH Total 11.9 ng/mL (>30)
[2023-10-17 16:35] LABS: CT PCR NOT DETECTED (Not Detect.); NG PCR NOT DETECTED (Not Detect.)
[2023-10-20 03:25] LABS: Syphilis Screen Nonreactive (Nonreactive)
[2023-10-20 04:10] LABS: HBS Num1 > 1000.00 mIU/mL (0-7.99); HBsAGNum1 0.25 S/CO (0.00-0.99); HIV AB/AG Nonreactive (Nonreactive); HIV Num 1 0.05 S/CO (0.00-0.99); Hepatitis B Core Antibody Nonreactive (Nonreactive); Hepatitis B Surface Antigen Negative (Negative); ~HepC Num1 0.12 S/CO (0.00-0.79); ~Hepatitis B Surface Antibody REACTIVE (Nonreactive); ~Hepatitis C Antibody Nonreactive (Nonreactive)
[2023-10-20 04:15] LABS: TS Negative Control Passed; TS Panel A 0; TS Panel B 0; TS Positive Control Passed; TSpotTB Negative (Negative)
== END 2023-10-17 13:15 | disposition home or self-care (01) ==
LOC: HO.LAB 13:14
PROVIDERS: PCP Student in an Organized Health Care Education/Training Program; Visit Provider Student in an Organized Health Care Education/Training Program
DX: Z00.00 Encounter for general adult medical examination without abnormal findings (principal); Z02.89 Encounter for other administrative examinations
CPT/HCPCS: 0353U; 80053; 80061; 82306; 82728; 83036; 83540; 84443; 85027; 86481; 86704; 86706; 86780; 86803; 87340; 87389

== ENCOUNTER 2024-10-18 14:17 | Outpatient (REF) | payer MEDICAID, SELFPAY ==
--- OUTSIDE RECORDS SUMMARY | 2024-10-18 16:01 | XMS_ITS | Encounter Summary ---
Author Organization [employer] Address [address] [place] [id number] Care Team Providers Care Tunnel Drier Operator Name Role Phone Nadira Jo MD Primary Care Pro vider Reason for Visit * Reason Onset Date Comments Care Management 10/13/2024 C3CM follow up c all Encounter Details Date Type Department Care Team ([facility] st Contact Info) Description 10/13/2024 Telephone [facility] [address] [place] [address] Nadira Jo MD [address] [place] [address] Care Management (C3CM follow up call) Social History Tobacco Use Types Packs/Day Years Used Date Smoking Tobacco: Never Passive Smoke Exposure: Never Smokeless Tobacco: Never Alcohol Use Standard Drinks/Week Comments Never 0 (1 standard drink = 0.6 oz pur e alcohol) Depression Answer Date Recorded Patient Health Questionnaire-9 Score 3 10/14/2023 Patient Health Questionnaire-9 Score 3 10/14/2023 Last PHQ-9: Questionnaire Data Not on file 0 10/14/2023 Housing Stability Answer Date Recorded What is your housing situation today? I have nam camarena 10/14/[address] you li ve. Do you have problems with any of the following? None of the above 10/14/2023 Food Insecurity Answer Date Recorded Within the past 12 months, y ou worried that your food would run out before you got money to buy more: Never True 10/14/2023 Within the past 12 months,th e food you bought just didn't last and you didn't have enough money to get more: Never True 03/2024 Transportation Answer Date Recorded In the past 12 months, has l ack of transportation kept you from medical appts, meetings, work or from getting things needed for daily living? Yes, it has kept me from medical appointments or getting medications. 07/15/2024 Utilities Answer Date Recorded In the past 12 months, has t he electric, gas, oil or water company threatened to shut off services in your home? No 10/14/2023 Depression Answer Date Recorded Patient Health Questionnaire-2 Score 0 10/14/2023 Internet Access Answer Date Recorded Internet Access Q1 Yes 07/15/2024 Internet Access Q2 Not on file 07/15/2024 Estimated Date of Delivery Comme nts Yes 12/10/2024 Based on [facility] NOAH, Lowell Shabazz Sex and Gender Information Value Date Recorded Sex Assigned at Female 03/04/2022 10:21 AM EDT Legal Sex Female 10:21 AM EDT Gender Identity Female 03/04/2022 10:21 AM EDT Sexual Orientation Straight 03/04/2022 10 :21 AM EDT documented as of this encounter Miscellaneous Notes * Telephone Encounter - Emily Acevedo - 10/13/2024 1:48 PM EDT LILIBETH Acevedo RN placed outbound call to patient. Patient's name, and address confirmed.Patient states is doing well with no recent illnesses or emergency room visits. Patient is currently 31 weeks gestation. Patient failed 3 hour GTT and is diagnosed with gestational diabetes. Patient has been monitoring blood sugars 4 x/day and has an appointment with the diabetes center at [facility] tomorrow 10/14/24. Patient has a follow up with OB today and is on her way to the appointment at this time. Patient attended neurology appointment and provider was not concerned with blood clots and patient was prescribed propanolol BID for migraines and patient is scheduled for follow up in December. Appointment reminder for physical 10/18/24 1:15pm. No further questions or concerns. CM reinforced direct contact information or CHW for any additional questions or concerns. Education provided on [facility] located in [facility]. Patient provided with after-hours line for [facility], , which offer night time triage service and option to transfer to occupational therapy aides teacher provider if needed. Patient verbalizes understanding, and able to repeat back to fha underwriter. A follow up call will be placed within 10 days, patientagrees with plan. documented in this encounter Plan of Treatment Upcoming Encounters Date Type Department Care Team (Late st Contact Info) Description 01/12/2025 2:15 PM EDT Office Visit [facility] [address] [place] [phone] Nadira Jo MD [address] [place] [address] documented as of this encounter Visit Diagnoses Not on filedocumented in this encounter Additional Health Concerns Assessment Noted Time PHQ-9 Depression Total Score: 3 10/14/19 24 3:11 PM EDT documented as of this encounter Care Teams Tunnel Drier Operator Relationship Specialty Start Date End Date Nadira Jo MD [address] [place] [id number] PCP - General Internal Medicine 09/24/22 Emily Acevedo Histology Supervisor 08/04/24 documented as of this encounter
[2024-10-18 16:43] LABS: Alanine Aminotransferase < 6 U/L (0-31); Albumin Level 3.7 g/dL (3.5-5.0); Alkaline Phosphatase 125 U/L (39-117); Anion Gap 14 (12-20); Aspartate Amino Transferase 15 U/L (5-31); Bilirubin Total 0.3 mg/dL (0.0-1.0); Blood Urea Nitrogen 8 mg/dL (9-16); Carbon Dioxide 20 mmol/L (22-29); Chloride 107 mmol/L (96-108); Estimated Glomerular Filt Rate > 60; Glucose Random 102 mg/dL (60-115); Potassium 3.9 mmol/L (3.3-5.1); Sodium 137 mmol/L (135-145); Total Protein 7.5 g/dL (6.5-8.0)
[2024-10-19 04:34] LABS: NT-proBNP <36 pg/mL (<125)
[2024-10-19 11:20] LABS: TSH reflex Free T4 1.64 uIU/mL (0.32-4.0)
== END 2024-10-18 14:18 | disposition home or self-care (01) ==
LOC: HO.HHCL 14:17
PROVIDERS: Visit Provider Student in an Organized Health Care Education/Training Program
DX: Z00.00 Encounter for general adult medical examination without abnormal findings (principal); R06.02 Shortness of breath
CPT/HCPCS: 36415; 80053; 83880; 84443

== ENCOUNTER → 2024-10-20 14:56 | Outpatient (REF) | payer MEDICAID, SELFPAY ==
--- NOTE | 2024-10-20 15:01 | CA_ITS ---
Transthoracic Echocardiogram Patient (Last, First, Middle): Shivani Amaya D Gender: Female Date of : 1995 Age: 29 Procedure Date: 10/20/2024 Procedure Type: Transthoracic Echocardiogram Location: OP Height: 172.72 cm Weight: 134.72 kg BSA: 2.42 m2 Heart Rate: bpm BP: 122 / 80 mmHg Staff Nurse: MALCOM/MEY Referring MD: Nadira Adam MD Statistical Assistant: Ezio Christine MD Symptoms: RO6.02 SOB PT IS CURRENTLY 32 WEEKS Study Quality: Adequate ECG Rhythm: Sinus tachycardia Conclusions: - 1. Normal LV ejection fraction 55-60% with mild LVH with impaired relaxation filling pattern 2. Normal cardiac valvular Dopplers 3. No gross pericardial effusion Findings Left Ventricle Normal left ventricular size and systolic function. There is mildly increased left ventricular wall thickness. The visually estimated ejection fraction is between 55-60%. Spectral Doppler is indicative of an impaired relaxation filling pattern. E/E prime ratio is <8, consistent with normal filling pressures. Evidence suggests grade I (mild) diastolic dysfunction. Right Ventricle Normal right ventricular cavity size and systolic function. Atria Both atria are normal in size. Interatrial shunt cannot be excluded. Aortic Valve The aortic valve structure and function is likely normal. There is no aortic valve stenosis. There is no aortic valve regurgitation. Mitral Valve Likely normal mitral valve structure and function. There is trace mitral valve regurgitation. There is no mitral valve stenosis. Pulmonic Valve The pulmonic valve was not well visualized. Tricuspid Valve Likely normal tricuspid valve structure and function. Tricuspid regurgitation envelope is inadequate for calculation of right ventricular systolic pressure. Normal right atrial pressure. Great Vessels All visible segments of the aorta are normal in size. The pulmonary artery was not well visualized. Venous The inferior vena cava is normal in size and collapses greater than 50% with inspiration. Pericardium/Pleural There is no evidence of pericardial effusion. Prior Study Comparison No prior study available for comparison. Measurements 2D Linear Measurements IVSd: 1.29 0.6-0.9/0.6-1.0 cm LVIDd: 3.08 3.9-5.3/4.2-5.9 cm LVIDd Index: 1.27 2.4-3.2/2.2-3.1 cm/m2 LVIDs: 2.25 2.0-3.6 cm LVPWd: 1.29 0.7-1.1 cm LA Diam: 3.90 2.7-3.8/3.0-4.0 cm LAIDs Index: 1.61 1.5-2.3 cm/m2 LV Mass: 173.58 67-162/88-224 g LV Mass Index: 71.73 43-95/49-115 g/m2 LVOT Diam: 2.40 3.0+(-)1.3 cm 2D Systolic Function EF 4C: 55.30 >55% EF 2C: 58.20 >55% EF BiP: 55.70 >55% Mitral Valve MV Pk E: 0.63 MV PK A: 0.80 MV Decel Time: 133.00 E/A: 0.80 E'Lateral: 13.60 E'Medial: 7.72 E/E' Med: 8.10 E/E' Lat: 4.60 PHT: 39.00 MVA PHT: 5.64 Decel [place]: 4.74 Aortic Valve AoV Pk Jan: 1.33 AoV Mn Jan: 0.92 AoV VTI: 0.19 AoV Pk Grad: 7.00 Aov Mn Grad: 4.00 GARETH Cont.VTI: 3.96 LVOT LVOT Pk Jan: 1.00 LVOT Mn Jan: 0.62 LVOT VTI: 0.17 LVOT Pk Grad: 4.00 LVOT Mn Grad: 2.00 LVOT Diam: 2.40 LVOT Area: 4.52 Diastolic Function MV Pk E: 0.63 MV Pk A: 0.80 E/A: 0.80 E'Medial: 7.72 E/E' Med: 8.10 E' Laterial: 13.60 E/E' Lat: 4.60 Right Ventricle TAPSE (mm): 21.70 TVS' Jan: 10.00 Tricuspid Valve RA Press: 8.00 Great Vessels Aorta Sinus of Valsalva: 3.20 2.0-3.5 cm Ao Asc: 3.00 2.1-3.4 cm Ao Arch: 3.00 Updated in Other Vendor System with Status of Final Ezio Christine MD electronically signed on 10/21/2024 12:28:33 PM with status of Final
--- OUTSIDE RECORDS SUMMARY | 2024-10-20 17:13 | XMS_ITS | Encounter Summary ---
Author Organization [employer] Address [address] [place] [address] Care Team Providers Care Warehousing Technician Name Role Phone Nadira Jo MD Primary Care Pro vider Encounter Details Date Type Department Care Team (Latest Contact Info) Description 10/18/2024 Travel Social History Tobacco Use Types Packs/Day Years Used Date Smoking Tobacco: Never Passive Smoke Exposure: Never Smokeless Tobacco: Never Alcohol Use Standard Drinks/Week Comments Never 0 (1 standard drink = 0.6 oz pur e alcohol) Depression Answer Date Recorded Patient Health Questionnaire-9 Score 0 10/18/2024 Patient Health Questionnaire-9 Score 0 10/18/2024 Last PHQ-9: Questionnaire Data Not on file 0 10/18/2024 Housing Stability Answer Date Recorded What is [...] Date Recorded Patient Health Questionnaire-2 Score 0 10/18/2024 Internet Access Answer Date Recorded Internet Access Q1 Yes 07/15/2024 Internet Access Q2 Not on file 07/15/2024 Estimated Date of Delivery Comme nts Yes 12/10/2024 Based on [facility] EDD Sex and Gender Information Value Date Recorded Sex Assigned at Female 03/04/2022 10:21 AM EDT Legal Sex Female 10:21 AM EDT Gender Identity Female 03/04/2022 10:21 AM EDT Sexual Orientation Straight 03/04/2022 10 :21 AM EDT documented as of this encounter Functional Status * Over the past 2 weeks, how often have you been bothered by any of the following problems? Question Answer Date of Assessment Author Patient Health Questionnaire -2 Score 0 10/18/2024 1:14 PM EDT Monik Dhaliwal MA * Little interest or pleasure in doing things Answer Date of Assessment Author Not at all 10/18/2024 1:14 PM KATHIET Fabrice Dhaliwal MA * Feeling down, depressed, or hopeless Answer Date of Assessment Author Not at all 10/18/2024 1:14 PM KATHIET Fabrice Dhaliwal MA * Trouble falling or staying asleep, or sleeping too much Answer Date of Assessment Author Not at all 10/18/2024 1:14 PM Fabrice Cage MA * Feeling tired or having little energy Answer Date of Assessment Author Not at all 10/18/2024 1:14 PM KATHIET Fabrice Dhaliwal MA * Poor appetite or overeating Answer Date of Assessment Author Not at all 10/18/2024 1:14 PM KATHIET Fabrice Dhaliwal MA * Feeling bad about yourself - or that you are a failure or have let yourself or your family down Answer Date of Assessment Author Not at all 10/18/2024 1:14 PM Fabrice Cage MA * Trouble concentrating on things, such as reading the newspaper or watching television Answer Date of Assessment Author Not at all 10/18/2024 1:14 PM EDT Fabrice Dhaliwal MA * Moving or speaking so slowly that other people could have noticed? Or the opposite - being so fidgety or restless that you have been moving around a lot more than usual. Answer Date of Assessment Author Not at all 10/18/2024 1:14 PM EDT Fabrice Dhaliwal MA * Thoughts that you would be better off or hurting yourself in some way Answer Date of Assessment Author Not at all 10/18/2024 1:14 PM EDT Fabrice Dhaliwal MA * Patient Health Questionnaire-9 Score Answer Date of Assessment Author 0 10/18/2024 1:14 PM EDT Fabrice Dhaliwal MA * Over the last 2 weeks, how often have you been bothered by any of the following problems? Question Answer Date of Assessment Author Feeling nervous, anxious, or on edge 0 10/18/2024 1:15 PM EDT Monik Dhaliwal MA Not being able to stop or co ntrol worrying 0 10/18/2024 1:15 PM EDT Monik Dhaliwal MA Worrying too much about diff erent things 0 10/18/2024 1:15 PM EDT Monik Dhaliwal MA Trouble relaxing 0 10/18/2024 1:15 PM EDT Monik Baugh MA Being so restless that it is hard to sit still 0 10/18/2024 1:15 PM EDT Monik Dhaliwal MA Becoming easily annoyed or irritable 0 10/18/2024 1:15 PM EDT Monik Dhaliwal MA Feeling afraid as if somethi ng awful might happen 0 10/18/2024 1:15 PM EDT Monik Dhaliwal MA GERALDO-7 Total Score 0 10/18/2024 1:15 PM EDT Monik Dhaliwal MA documented as of this encounter Plan of Treatment Upcoming Encounters Date Type Department Care Team (Late st Contact Info) Description 01/12/2025 2:15 PM EDT Office Visit [facility] [address] [place] [address] Nadira Jo MD [address] [place] [address] documented as of this encounter Visit Diagnoses Not on filedocumented in this encounter Additional Health Concerns Assessment Noted Time PHQ-9 Depression Total Score: 0 10/19/19 25 1:14 PM EDT documented as of this encounter Care Teams Warehousing Technician Relationship Specialty Start Date End Date Nadira Jo MD [address] [place], [place] [phone] PCP - General Internal Medicine 09/24/22 Emily Acevedo Spanish Instructor 08/04/24 documented as of this encounter
== END ==
LOC: HO.CARD 14:56
PROVIDERS: PCP Student in an Organized Health Care Education/Training Program; Visit Provider Student in an Organized Health Care Education/Training Program
DX: R06.02 Shortness of breath (principal)
CPT/HCPCS: 93306

== ENCOUNTER → 2024-10-20 15:01 | Outpatient (BNV) | payer MEDICAID, SELFPAY | PROVIDERS: PCP Student in an Organized Health Care Education/Training Program; Visit Provider Internal Medicine Cardiovascular Disease | DX: I51.89 Other ill-defined heart diseases (principal); Z33.1 Pregnant state, incidental | CPT/HCPCS: 93306 ==

== ENCOUNTER 2025-04-06 14:06 | Outpatient (AMB) | payer MEDICAID, SELFPAY ==
[2025-04-06 14:08] VITALS: BP 128/68; PULSE 116; BMI 44.2
--- NOTE | 2025-04-06 14:08 | A.OFFVIS_ITS ---
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 The pain occurs at rest and is associated with a sensation of the heart stopping and then beating, without a feeling of flutter. The patient has a history of a high heart rate identified during recent appointments with the patient's primary care provider. The patient has three children and experienced agcu-tj-voeh pregnancies, culminating in a weight gain of approximately 60 pounds. The patient's current weight is 291 pounds, compared to a pre- weight of around 240 pounds. The patient reports dyspnea on exertion, which began during the pdehlv-ks-nzvc and has persisted. Past medical history is significant for gestational diabetes and low iron during . The gestational diabetes has since resolved. The patient is currently . No prior cardiac issues including cardiomyopathy or congestive heart failure or in fact anything else of cardiac nature. [facility] Medical History Meningitis Migraines Family History Mother No problems noted. Father No problems noted. Social History Alcohol intake: never Patient Tobacco Use Status: Never used Tobacco Review of Systems Const Denies weakness ENT Denies dizziness Card Reports chest pain, Reports chest pain at rest, Denies chest pain with activity, Denies syncope, Reports rapid heart rate, Denies pedal edema, Denies edema, Denies leg edema, Denies lightheadedness, Denies palpitations, Reports dyspnea, Denies dyspnea on exertion and Denies orthopnea Resp Denies cough, Reports dyspnea and Denies dyspnea on exertion GI Denies hematochezia and Denies change in stool character Musc Denies abnormal gait, Denies muscle cramps, Denies muscle weakness, Denies numbness, Denies radiating pain into limb and Denies tingling Neuro Denies abnormal gait, Denies dizziness, Denies syncope, Denies numbness, Denies tingling and Denies weakness Endo Denies palpitations Physical Exam Vital Signs: Last Vital Signs Pulse 116 H 04/06/25 14:08 BP 128/68 04/06/25 14:08 BMI result Body Mass Index 44.2 Const General: comfortable and no acute distress Orientation/consciousness: patient oriented x3 HEENT Other: Unremarkable Head: Yes normal to inspection Neck Neck: Yes normal visual inspection Chest Chest palpation & inspection: normal inspection of the chest Resp Auscultation: clear to auscultation bilaterally Cardio Palpation: normal PMI Heart sounds: S1 normal heart sound present, S2 normal heart sound present, no gallops, no murmurs and no rubs GI Palpation (GI): Soft to palpation Back/Spine/Pelvis Other: unremarkable Skin General skin exam: no rashes or lesions noted Neuro General: patient oriented x3 Extrem General: Yes normal to inspection Psych Mental Status: mental status grossly normal Office Procedures EKG Details: EKG with sinus tachycardia at 116/Min; cannot exclude old inferior or anterolateral infarct but most likely from body habitus. [place] [id number], Complete Assessment & Plan Assessment & Plan (1) Morbid obesity: Code(s): E66.01 - Morbid (severe) obesity due to excess calories Category: Medical (2) Precordial chest pain: Code(s): R07.2 - Precordial pain Category: Medical (3) Sinus tachycardia: Code(s): R00.0 - Tachycardia, unspecified Category: Medical (4) SOB (shortness of breath): Code(s): R06.02 - Shortness of breath Category: Medical Plan Echocardiogram report as well as images reviewed. LVEF is preserved. There was mild left ventricular hypertrophy. Reported have mild diastolic dysfunction but upon my review I believe it is normal. Resting filling pressures also normal. There was no significant valvular dysfunction. No evidence of pulmonary hypertension. IVC has diminished collapsibility which goes with her weight and increased right-sided filling pressure. Overall, the echocardiogram does not explain any of her symptoms. 1. Sinus Tachycardia and Chest Pain The patient's tachycardia (HR 116 on EKG), chest pain, and exertional dyspnea are attributed to significant deconditioning and a 60-pound weight gain. A cardiac ultrasound was reviewed and found to be normal, with good pump function, no valvular problems, and no pericardial fluid, though the heart muscles are noted to be slightly thick, which is consistent with the increased weight. The plan is to defer pharmacologic intervention at this time due to the patient's age and status. Management will focus on significant weight loss. We will re-evaluate in 4-6 months, and if the tachycardia persists despite weight loss efforts, we will reconsider medical management. 2. Obesity The patient has gained significant weight through recent hsoj-pm-nfcr pregnancie s, with a current weight of 291 lbs. This is considered the primary substitute bus driver of the patient's cardiovascular symptoms and places the patient at high risk for developing type 2 diabetes, given the history of gestational diabetes. The plan is to strongly encourage weight loss toward the patient's baseline. Discussion Notes I discussed my findings with the patient, explaining that the heart ultrasound is normal and there are no alarming structural cardiac issues, though the heart muscle appears slightly thick, likely from the strain of excess weight. I reassured the patient that the symptoms of chest pain and fast heart rate are most likely related to the significant weight gain. I emphasized that weight loss is not an option but a necessity to prevent future health complications, particularly a high risk of developing permanent diabetes. We agreed to defer any heart rate-lowering medications at this time and to follow up in 4-6 months to reassess the heart rate after a period of focusing on weight reduction. I advised the patient to speak with the patient's PCP about weight loss medication options after is complete. Patient was informed and verbally consented to the use of an ambient scribe for clinic note documentation during this visit. Patient Instructions: - Focus on losing weight through diet and lifestyle changes to return to your weight from before your recent pregnancies. - Understand that weight loss is very important to help your fast heart rate return to normal and to lower your high risk of developing diabetes. - No new heart medication will be started at this time. - After you finish , you may discuss new weight loss injection medications with your primary care provider. - Please schedule a follow-up appointment in about 4 to 6 months to check on your heart rate and progress. Coding Level of Care Code New Pt Level 4 (48819) Diagnoses Morbid obesity E66.01 Precordial chest pain R07.2 Sinus tachycardia R00.0 SOB (shortness of breath) R06.02 CPT Codes EKG - CPT: 11759-[id number], Complete ([id number])
--- OUTSIDE RECORDS SUMMARY | 2025-04-06 16:59 | XMS_ITS | Encounter Summary ---
Author Organization [employer] Address [address] [place] [address] Care Team Providers Care Marketing Traffic Coordinator Name Role Phone Nadira Jo MD Primary Care Pro vider Reason for Visit * Reason Onset Date Comments chartprep 04/05/2025 Encounter Details Date Type Department Care Team ([facility] st Contact Info) Description 04/05/2025 Telephone [facility] MEDICINE [address] [place], [place] [phone] Nadira Jo MD [address] [place] [address] chartprep Social History Tobacco Use Types Packs/Day Years Used Date Smoking Tobacco: Never Passive Smoke Exposure: Never Smokeless Tobacco: Never Alcohol Use Standard Drinks/Week Comments Never 0 (1 standard drink = 0.6 oz pur e alcohol) Depression Answer Date Recorded Patient Health Questionnaire-9 Score 2 01/14/2025 Patient Health Questionnaire-9 Score 2 01/14/2025 Last PHQ-9: Questionnaire Data Not on file 0 01/14/2025 Housing Stability Answer Date Recorded What is [...] Date Recorded Patient Health Questionnaire-2 Score 0 01/14/2025 Internet Access Answer Date Recorded Internet Access Q1 Yes 07/15/2024 Internet Access Q2 Not on file 07/15/2024 Comments No Sex and Gender Information Value Date Recorded Sex Assigned at Female 03/04/2022 10:21 AM EDT Legal Sex Female 10:21 AM EDT Gender Identity Female 03/04/2022 10:21 AM EDT Sexual Orientation Straight 03/04/2022 10 :21 AM EDT documented as of this encounter Miscellaneous Notes * Telephone Encounter - Camila Amaya MA - 04/05/2025 9:54 AM EST ..Chart Prep Labs: done Images: done Xr chest Vaccines due: Covid Due, Flu Due, and HPV Referrals: Cardiology Pending appointment on at 2:00 pm [facility] Screenings: Not Applicable Overdue care gaps: None documented in this encounter Plan of Treatment Not on file documented as of this encounter Visit Diagnoses Not on filedocumented in this encounter Additional Health Concerns Assessment Noted Time PHQ-9 Depression Total Score: 2 01/15/20 25 10:56 AM EDT documented as of this encounter Care Teams Marketing Traffic Coordinator Relationship Specialty Start Date End Date Nadira Jo MD [address] [place] [id number] PCP - General Internal Medicine 09/24/22 Emily Acevedo Video Editing Intern 08/04/24 documented as of this encounter
--- OUTSIDE RECORDS SUMMARY | 2025-04-06 16:59 | XMS_ITS | Encounter Summary ---
Author Organization [facility] Address [address] [place] [address] Phone Care Team Providers Care Mcat Instructor Name Role Phone Nadira Jo MD Primary Care Pro vider Encounter Details Date Type Department Care Team (Late st Contact Info) Description 07/26/2024 Procedure Pass [facility], [address] [address] Social History Tobacco Use Types Packs/Day Years Used Date Smoking Tobacco: Never Passive Smoke Exposure: Current Smokeless Tobacco: Never Alcohol Use Standard Drinks/Week Comments Not Currently 0 (1 standard drink = 0.6 oz pur e alcohol) Education Answer Date Recorded Are you interested in more education? Not on kayla e 08/31/2022 Are you concerned about learning? Not on file 08/31/2022 No 08/31/2022 No 08/31/2022 Digital Access Answer Date Recorded No 09/28/2022 No 09/28/2022 Reliable internet access at home? Not on file 09/28/2022 Device with a working camera? Not on file Intimate Partner Violence Answer Date R ecorded Are you denied basic needs s uch as food, clothing, or medical care? Deferred 12/23/2022 In the past 12 months have y ou been in a relationship with a person who hurts, threatens, or tries to control you? Deferred 12/23/2022 Are you denied basic needs s uch as food, clothing, or medical care? Deferred 12/23/2022 In the past 12 months have y ou been in a relationship with a person who hurts, threatens, or tries to control you? Deferred 12/23/2022 Comments Yes Sex and Gender Information Value Date Recorded Sex Assigned at Female 06/20/2022 5:26 PM EST Legal Sex Female 11:41 AM EST Gender Identity Female 06/20/2022 5:26 PM EST Sexual Orientation Straight 06/20/2022 5: 26 PM EST documented as of this encounter Plan of Treatment Not on file documented as of this encounter Visit Diagnoses Not on filedocumented in this encounter Care Teams Mcat Instructor Relationship Specialty Start Date End Date Nadira Jo MD [address] [place] [address] PCP - General Internal Medicine 10/10/22 documented as of this encounter Additional Source Comments The information contained in this document represents components of the legal health record. It is not the complete legal health record.[facility]
--- OUTSIDE RECORDS SUMMARY | 2025-04-06 16:59 | XMS_ITS | Encounter Summary ---
Author Organization [employer] Address [address] [place] [address] Care Team Providers Care Organic Gardening Teacher Name Role Phone Nadira Jo MD Primary Care Pro vider Reason for Visit * Reason Onset Date Comments Med Refill 10/30/2023 Encounter Details Date Type Department Care Team ([facility] st Contact Info) Description 10/30/2023 Refill [facility] MEDICINE [address] [place], [place] [phone] Nadira Jo MD [address] [place] [address] Social History Tobacco Use Types Packs/Day Years [...] from getting things needed for daily living? No 10/14/2023 Utilities Answer Date Recorded In the past 12 months, has t he electric, gas, oil or water company threatened to shut off services in your home? No 10/14/2023 Depression Answer Date Recorded Patient Health Questionnaire-2 Score 0 10/14/2023 Comments Unknown Sex and Gender Information Value Date Recorded Sex Assigned at Female 03/04/2022 10:21 AM EDT Legal Sex Female 10:21 AM EDT Gender Identity Female 03/04/2022 10:21 AM EDT Sexual Orientation Straight 03/04/2022 10 :21 AM EDT documented as of this encounter Miscellaneous Notes * Telephone Encounter - Dipika Del Angel - 10/30/2023 10:19 AM EDT Tc from pt is requesting medication Anna (ulipristal) . States [facility] is out of stock for medication levonorgestrel (Plan B) 1.5 MG tablet . documented in this encounter Plan of Treatment Not on file documented as of this encounter Visit Diagnoses Not on filedocumented in this encounter Additional Health Concerns Assessment Noted Time PHQ-9 Depression Total Score: 3 10/14/19 24 3:11 PM EDT documented as of this encounter Care Teams Organic Gardening Teacher Relationship Specialty Start Date End Date Nadira Jo MD [address] [place] [id number] PCP - General Internal Medicine 09/24/22 Emily Acevedo Computer Forensic Examiner 08/04/24 documented as of this encounter
--- OUTSIDE RECORDS SUMMARY | 2025-04-06 16:59 | XMS_ITS | Encounter Summary ---
Author Organization [facility] Address [address] [place] [address] Phone Care Team Providers Care Lumber Sorter Machine Name Role Phone Nadira Jo MD Primary Care Pro vider Encounter Details Date Type Department Care Team (Late st Contact Info) Description 07/26/2024 Procedure Pass [facility], [address] [address] Social History Tobacco Use Types Packs/Day Years [...] on filedocumented in this encounter Care Teams Lumber Sorter Machine Relationship Specialty Start Date End Date Nadira Jo MD [address] [place] [phone] PCP - General Internal Medicine 10/10/22 documented as of this encounter Additional Source Comments The information contained in this document represents components of the legal health record. It is not the complete legal health record.[facility]
--- OUTSIDE RECORDS SUMMARY | 2025-04-06 16:59 | XMS_ITS | Encounter Summary ---
Author Organization [employer] Address [address] [facility] [address] [place] [address] Care Team Providers Care Precision Assembly Inspector Name Role Phone Nadira Jo MD Primary Care Pro vider Reason for Visit * Reason Onset Date Comments CRITICAL RESULT 04/06/2025 Encounter Details Date Type Department Care Team ([facility] st Contact Info) Description 04/06/2025 Telephone [facility] MEDICINE [address] [place], [place] [phone] Briana Savage RN [address] [place], [place] [phone] CRITICAL RESULT Social History Tobacco Use Types Packs/Day Years [...] AM EDT documented as of this encounter Plan of Treatment Not on file documented as of this encounter Visit Diagnoses Not on filedocumented in this encounter Additional Health Concerns Assessment Noted Time PHQ-9 Depression Total Score: 2 01/15/20 25 10:56 AM EDT documented as of this encounter Care Teams Precision Assembly Inspector Relationship Specialty Start Date End Date Nadira Jo MD [address] [place] [address] PCP - General Internal Medicine 09/24/22 Emily Acevedo Thermometer Production Worker 08/04/24 documented as of this encounter
--- OUTSIDE RECORDS SUMMARY | 2025-04-06 16:59 | XMS_ITS | Clinical Summary ---
Author Organization [employer] Address [address] [facility] [address] [place] [address] Care Team Providers Care Ordnance Truck Installation Mechanic Name Role Phone Nadira Jo MD Primary Care Pro vider Allergies No known active allergies Medications * This document contains information received from the source organization and may not represent a complete record from that organization. cholecalciferol (Vitamin D-3) 50 MCG (1999 UT) capsule Take 1 capsule (50 mcg) by mouth Once per day. 90 capsule 1 4 Active Blood Pressure kit Use to check blood pressure once daily and when symptomatic 1 kit 5 Active acetaminophen (Tylenol) 325 MG tablet Take 975 mg by mouth every 6 (six) hours if needed. 3 Active Ferrous Sulfate (IRON PO) Take 1 tablet by mouth in the morning. 5 Active omeprazole (PriLOSEC) [address] capsule Take 1 capsule (20 mg) by mouth if needed each day (GERD). 30 capsule 1 5 Active magnesium oxide (Mag-Ox) 400 MG tablet TAKE 1 TABLET BY MOUTH EVERYDAY AT BEDTIME 90 tablet 5 Active MV-Min-Fe Fum-FA-DHA ( 1 PO) Take by mouth. Active norethindrone (Micronor) 0.35 MG tablet Take 1 tablet (0.35 mg) by mouth Once per day. 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 10/03/2024 Overview (10/18/2024): 1 hr 180, 3hr GTT - positive for GDM Diabetes on medications o refer to CEDE o 32 wks: BPP o 36 wks add NST o growth q 4 weeks o Induction at 39-40.0 wks Leukocytosis 11/28/2023 Transaminitis 11/28/2023 Migraine without aura, not refractory 10/25/2022 Health care maintenance 10/07/2022 Assessment & Plan (10/07/2022 6:07 PM EDT): -pap smear: 2016 neg but hx of HPV before w normal colposcopy pt to f w her PHOTOGRAPHIC AIDE at her next visit to check when will have next pap smear -labs x annual exam today -pt agreed to have STI testing including HIV to have for baseline -not in fasting -will do Quantifer[employer] by pt's request for her job --once all labs are reported - will do a letter for work ( reports neg tb test before) -vaccines: s/p hep Bx3,MMRx1,covid 19 vaccine x3--advised x Bivalent but states will hold after delivery-refusing vaccine now,s/P tdap 2021 -advised pt to RTC in 4 weeks to go over labs and monitor HR Class 3 severe obesity due t o excess calories without serious comorbidity in adult 10/07/2022 Assessment & Plan (10/07/2022 6:01 PM EDT): Advised pt to improve diet and exercise,discussed healthy life style -discussed quick technician referral --states used to have one at [facility] and she would call x apt -states dont need referral -pt reports was in a bariatric program -planned x surgery but then got -so interested to resume program after delivery Hiatal hernia with GERD 07/10/2022 Overview (06/02/2024): Has never had endoscopy, diagnosed on what sounds like barium swallow. Was scheduled for surgery on hiatal hernia when found out she was . Likely exacerbated by n/v of . Will rx omeprazole, discuss nutritional considerations at next visit. Has to sleep elevated. Refractory to famotidine and present prior to , was successfully treated with omeprazole in past was taking 40mg / day. Will try 20mg a day to start but could titrate up at next visit if needed. Herpes simplex infection of genitourinary system 05/17/2022 Overview (06/02/2024): Does not have outbreaks. Reviewed with start suppression at 36 weeks ASCUS with positive high risk HPV cervical 04/24 Resolved Problems Problem Noted Date Diagnosed Date Resolved Date Relationship problems 11/18/20222023 Bacterial vaginosis 10/25/2022 10/14/19 24 Heartburn 10/07/2022 10/14/2023 Assessment & Plan (10/07/2022 6:00 PM EDT): f w her PHOTOGRAPHIC AIDE -on PPis ,states not able to take prenatals due to nausea and GERD- states her PHOTOGRAPHIC AIDE is aware of pt not taking prenatals Depression with anxiety 10/07/202210/03 Assessment & Plan (11/18/2022 10:56 AM EDT): Intervention, Assessment & Plan: Patient presents with sadness, anhedonia, difficulty sleeping, shortness of breath, dizziness, nervousness, uneasiness, shakiness, increased palpitations and difficulty controlling worries such as (something bad might happen . Denies any hallucinations,jackie nor SI, no hx of previous depression nor anxiety and no hx of depression. Shivani indicates sxs started around the start of her when relationship issues began with her romantic partner. During intervention provider engaged patient in supportive counseling through active listening, validation of current emotions and normalization of experience. Provided psychoeducation around MH sxs, stressors and impact on general wellness. We discussed potential referrals and patient agreed to OP referral for individual therapy. provider also encouraged patient to discuss current sxs, experience and psychosocial stressors with her OBGYN practice to create additional supports around her and delivery. She agreed to engage her frame changer in conversation during her next visit Assessment & Plan (10/07/2022 6:04 PM EDT): PHQ9: 6 ,denies hallucinations,jackie, nor SI Feeling sad and anxious x last 7 months Thinks related w issues w father of baby -today saw at clinic and pt was referred x outpt therapy and advised to f as well w her PHOTOGRAPHIC AIDE about symptoms -pt was told by To call here to f w BH if needed -will monitor symptoms in 4 weeks Sinus tachycardia 10/07/2022 01/16/2025 Assessment & Plan (10/07/2022 6:10 PM EDT): Noted to be mild tachycardic in visit Manual HR is 108x' ,regular EKG today NSR -HR 103-113, no other abnormal findings except TWI in lead III only Possible mediated from anxiety ? ,asymptomatic -will check CBC,TSH,chem -alarm signs and symptoms discussed -advised hydration and to f as well w her PHOTOGRAPHIC AIDE -next apt in 2 days -will monitor here in 4 weeks Encounters Date Type Department Care Team Description 04/06/[address] [address] Briana Savage, RN CRITICAL RESULT 04/05/[address] [address] Nadira Jo MD chartprep 03/14/[address] [address] Nadira Jo MD Care Management (C3CM follow up call) 02/16/2025 Telephone [facility] [address] Nadira Jo MD Care Management (C3CM follow up call) 01/14/2025 10:45 AM EDT [address] [facility] [place] [address] Nadira Jo MD Annual physical exam (Primary Dx); Chest pain, unspecified type; Class 3 severe obesity due to excess calories without serious comorbidity in adult; Health care maintenance; Chest discomfort 01/14/2025 Orders Only [facility] [address] [place] [address] Surekha Posey 01/14/2025 Travel 01/12/2025 Telephone [facility] [address] [place] [address] Nadira Jo MD Care Management (C3CM follow up call) 01/08/2025 Refill [facility] [address] [place] [address] Naty Gomez FNP 01/07/2025 Patient Outreach [facility] [address] [place] [address] Nadira Jo MD Pre-visit Planning ([facility] screening was completed on 07/15/2024) from Last 3 Months Immunizations Immunization Administration Dates Next Due Hep B, Unspecified 09/29/2012 Hep B, adult 11/30/2020,09/27/2020,07/26/2020 Influenza injectable quadriv alent IIV4 with preservative 01/24/2016,01/27/2015 MMR 09/29/2012 Pfizer Covid-19 Vaccine 12+ 04/12/2021,1 06/13/2020,03/22/2021,2020 Rabies - IM Fibroblast Culture 09/13/2021 Tdap 11/06/2022,06/19/2021 Family History Medical History Relation Name Comments Brain cancer Mother's Sister Relation Name Status Comments Mother's Sister Social History Tobacco Use Types Packs/Day Years Used Date Smoking Tobacco: Never Passive Smoke Exposure: Never Smokeless Tobacco: Never Tobacco Cessation:Counseling Given: Not Answered Alcohol Use Standard Drinks/Week Comments Never 0 [...] Orientation Straight 03/04/2022 10 :21 AM EDT Last Filed Vital Signs Vital Sign Reading Time Taken Comments Blood Pressure 118/72 01/14/2025 10:55 AM EDT Pulse 84 01/14/2025 10:55 AM EDT Temperature 36.1 C (96.9 F) 01/14/2025 10:55 AM EDT Respiratory Rate 20 01/14/2025 10:55 AM EDT Oxygen Saturation 99% 01/14/2025 10:55 AM EDT Inhaled Oxygen Concentration - - Weight 127 kg (279 lb 6.4 oz) 01/14/2025 10:55 A M EDT Height 175.3 cm (5' 9 ) 01/14/2025 10:55 AM EDT Body Mass Index 41.26 01/14/2025 10:55 AM EDT Plan of Treatment Health Maintenance Due Date Last Done Comments Family Planning (PISQ) 02/06/2008 HPV Vaccines (1 - 3-dose series) 02/06/2008 COVID-19 Vaccine ( season) 2025 04/12/2021, 04/12/2021, 03/22/2021, Additional history exists Influenza Vaccine (#1) 2025 01/24/2016, 2014 SDOH Screening 07/15/2025 07/15/2024 Alcohol/Substance Use Screening 10/18/2025 10/18/2024 Disability Screening 10/18/2025 10/18/2024 Depression Screening 01/14/2026 01/14/2025, 01/15/20 Tobacco Screening 01/14/2026 01/14/2025 Diabetes: Hemoglobin A1C 04/06/2026 025, 11/18/2024, 10/14/2024, Additional history exists Cervical Cancer Screening 05/11/2029 HPV/Cotest 05/11/2029 05/11/2024 Pap Smear 05/11/2029 05/11/2024, 12/03, 04/07/2015 Lipid Panel 04/06/2030 04/06/2025, 10/03, 10/08/2022 DTaP/Tdap/Td Vaccines (3 - Td or Tdap) 11/06/2032 11/06/2022, 06/19/2021 Zoster Vaccines (1 of 2) 2043 RSV Patients and Patients Aged 60 years or older (1 - 1-dose 75+ series) 02/06/2068 Hepatitis B Vaccines Completed 11/30/2020, 09/27/2020, 07/26/2020, Additional history exists HIV Screening Completed 10/17/2023, 10/08/2022 Hepatitis C Screening Completed 10/17/2023, 023 HIB Vaccines Aged Out No longer eligi ble based on patient's age to complete this topic Hepatitis A Vaccines Aged Out No long er eligible based on patient's age to complete this topic IPV Vaccines Aged Out No longer eligi ble based on patient's age to complete this topic Meningococcal B Vaccine Aged Out No l onger eligible based on patient's age to complete this topic Meningococcal Vaccine Aged Out No sherin erik eligible based on patient's age to complete this topic Pneumococcal Vaccine: Pediatrics (0 to 5 Years) and At-Risk Patients (6 to 49) Years Aged Out No longer eligible based on patient's age to complete this topic RSV under 20 months Aged Out No longe r eligible based on patient's age to complete this topic Rotavirus Vaccines Aged Out No longer eligible based on patient's age to complete this topic Procedures Procedure Name Priority Date/Time Associated Diagnosis Comments D DIMER HIGH SENSITIVITY Routine 04/06/2025 3:11 PM EST Chest pain, unspecified type VITAMIN D,25-OH,TOTAL,IA Routine 04/06/2025 3:11 PM EST Annual physical exam TSH W/REFLEX TO FT4 Routine 04/06/2025 3 :11 PM EST Annual physical exam LIPID PANEL, STANDARD Routine 04/06/2025 3:11 PM EST Annual physical exam HEMOGLOBIN A1C Routine 04/06/2025 3:11 PM EST Annual physical exam COMPREHENSIVE METABOLIC PANEL Routine 04/06/2025 3:11 PM EST Annual physical exam CBC WITH AUTO DIFFERENTIAL Routine 04/06/2025 3:11 PM EST Annual physical exam POCT , URINE Routine 01/14/2025 12:29 PM EDT Annual physical exam ECG 12-LEAD Routine 01/14/2025 12:05 PM EDT Chest pain, unspecified type HM PAP/HPV Routine 05/11/2024 12:00 AM EST HEPATITIS C AB W/REFL TO HCV RNA, QN, PCR Routine 10/17/2023 1:50 PM EDT Annual physical exam HIV 1/2 ANTIGEN/ANTIBODY, FOURTH GENERATION W/RFL Routine 10/17/2023 1:50 PM EDT Annual physical exam from Last 3 Months or Most Recently Relevant to Health Maintenance Results * D Dimer High Sensitivity (04/06/2025 3:11 PM EST) D Dimer High Sensitivity 297 NG/ML [facility] Comment:Results of NISSA carrasquillo lled to EVE Buckley on 04/06/25at 1602 by VANDANA.D- DIMER HS REFERENCE RANGENote: Our assay reports D-Dimer Units (D-DU).The cut-off value for venous thromboembolic (VTE) disease is230 ng/mL. This value has a very high negative predictivevalue when the patient has a low to moderate clinicalprobability of VTE.The upper limit of normal is 243 ng/mL. Blood 04/06/2025 3:11 PM EST 04/06/2025 3:11 PM EST us Nadira Adam MD LAB BLOOD ORDERAB LES Final Result [facility] [address] [place] [phone] * (ABNORMAL) Vitamin D, 25-Hydroxy, Total, Immunoassay (04/06/2025 3:11 PM EST) Vitamin D 25-OH Total 10.7(L) >30 ng/mL [facility] Comment: Health Based Reference Values*< 20 ng/mL Cajnjogas84-12 ng/mL Insufficient> 30 ng/mL Sufficient*Thais CHARLTON. N Engl J Med. 2007;357:266-280There is no well-established upper level of normal vitamin Dlevels. Some laboratories use 50 ng/mL as an upper limit ofnormal. However, toxicity is patient-dependent and may occurat any level. Careful correlation with the patient'spresentation is necessary and, if there is concern forvitamin D toxicity, treatment should be consideredirrespective of the serum level.Care must be taken in interpreting Vitamin D results fromdifferent laboratories and methodologies. Published datademonstrated that results from patients undergoinghemodialysis may show a negative bias when tested withvarious automated 25-OH vitamin D assays when compared toLC-MS/MS.When testing samples from patients whose predominant form ofVitamin D is Vitamin D2, such as patients receiving VitaminD2 supplementation, results that are subtherapeutic shouldbe confirmed with another method such as LC-MS/MS. Blood Venous blood specimen / Unknown 04/06/2025 3:11 PM EST 04/06/2025 3:11 PM EST Nadira Adam MD LAB BLOOD ORDERAB LES Final Result Performing Organization Address [facility]/ZIP Co de Phone Number [facility] [address] [place] [phone] * TSH with Reflex to Free T4 (04/06/2025 3:11 PM EST) [facility] TSH reflex Free T4 1.24 0.32 - 4.0 uIU/mL [facility] Blood 04/06/2025 3:11 PM EST 04/06/2025 3:11 PM EST Nadira Adam MD LAB BLOOD ORDERAB LES Final Result Performing Organization Address [facility] Co de Phone Number [facility] [address] [place] [phone] * (ABNORMAL) CBC auto differential (04/06/2025 3:11 PM EST) [facility] White Blood Count 8.9 4.8 - 10.8 X10*3/uL [facility] Red Blood Count 4.64 4.20 - 5.50 X10*6/uL [facility] Hemoglobin 11.8(L) 12.0 - 16.0 g/dl [facility] Hematocrit 37.2 37.0 - 47.0 % [facility] Mean Corpuscular Volume 80.2 80.0 - 98.0 fL [facility] Mean Corpuscular Hemoglobin 25.4(L) 27.0 - 33.0 pg [facility] Mean Corpuscular HGB Conc 31.7 31.0 - 35.0 g/dl [facility] Red Cell Distribution Width 13.9 11.0 - 16.0 % [facility] Platelet Count 386 160 - 400 X10*3/uL [facility] Mean Platelet Volume 11.3 9.4 - 12.3 fL [facility] Neutrophils Percent Auto 55.5 45 - 73 % [facility] Imm Gran Pct Auto 0.2 0.0 - 0.4 % [facility] Lymphocytes Percent Auto 34.6 20 - 40 % [facility] Monocytes Percent Auto 8.6 2 - 11 % [facility] Eosinophils Percent Auto 0.7 0 - 4 % [facility] Basophils Percent Auto 0.4 0 - 2 % [facility] NRBC Pct Auto 0.0 0.0 - 0.2 /100WBC [facility] Neutrophils Absolute Auto 5.0 2.0 - 8.3 x10*3/uL [facility] Imm Gran Abs Auto 0.02 0.00 - 0.03 X10*3/uL [facility] Lymphocytes Absolute Auto 3.1 1.2 - 4.9 X10*3/uL [facility] Monocytes Absolute Auto 0.8 0.1 - 1.2 X10*3/uL [facility] Eosinophils Absolute Auto 0.1 0.0 - 0.4 X10*3/uL [facility] Basophils Absolute Auto 0.0 0.0 - 0.2 X10*3/uL [facility] NRBC Abs Auto 0.000 0.0 - 0.012 X10*3/uL [facility] Blood Venous blood specimen / Unknown 04/06/2025 3:11 PM EST 04/06/2025 3:11 PM EST us Nadira Adam MD LAB BLOOD ORDERAB LES Final Result [facility] [address] [place], [place] [phone] * Hemoglobin A1c (04/06/2025 3:11 PM EST) Hemoglobin A1c 5.6 <6.0 % [facility] Comment:Hemoglobin A1C Refer ence Range Adults: 4.8 - 6.0 % Non diabetic: < 6.0 % Goal: < 7.0 %Additional Action Suggested: > 8.0 %Note: Hemoglobin A1c results are invalid for patients with abnormal amounts of HbF. Blood transfusions may impact the HbA1c concentration in the patient sample. Estimated Average Glucose 114 mg/dL [facility] Comment:eAG = Estimated ave rage glucose which is %A1C expressed asaverage glucose, using the formula of the H9H-OdmguscHbvmvmm Glucose study (ADAG), Diabetes Care, Vol.31,#8,Dec. 2007 Blood Venous blood specimen / Unknown 04/06/2025 3:11 PM EST 04/06/2025 3:11 PM EST us Nadira Adam MD LAB BLOOD ORDERAB LES Final Result [facility] [address] [place] [phone] * (ABNORMAL) Lipid Panel, Standard (04/06/2025 3:11 PM EST) Triglycerides 94 <150 mg/dL [facility] Comment:Desirable Triglyceri de: less than 150 mg/dLBorderline High Triglyceride 150-199 mg/dLHigh Triglyceride: 200-499 mg/dLVery High Triglyceride: greater than or equal to 5OO mg/dL Cholesterol 194 <200 mg/dL [facility] Comment:Desirable Cholestero l: less than 200 mg/dLBorderline High Cholesterol: 200-239 mg/dLHigh Cholesterol: greater than 239 mg/dL LDL Cholesterol Calculated 116(H) <100 mg/dL [facility] Comment:Desirable LDL: less than 100 mg/dLNear Optimal/Above Optimal LDL: 110- 129 mg/dLBorderline High LDL: 130-159 mg/dLHigh LDL: 160-189 mg/dLVery High LDL: greater than or equal to 190 mg/dL HDL Cholesterol 60 >40 mg/dL [facility] Comment:Desirable HDL: great er than 40 mg/dL Note: This HDL assay may give artificially low results in patients with liver disease. Blood Venous blood specimen / Unknown 04/06/2025 3:11 PM EST 04/06/2025 3:11 PM EST us Nadira Adam MD LAB BLOOD ORDERAB LES Final Result [facility] [address] [place] [phone] * (ABNORMAL) Comprehensive Metabolic Panel (04/06/2025 3:11 PM EST) Sodium 142 135 - 145 mmol/L [facility] Potassium 3.9 3.3 - 5.1 mmol/L [facility] Chloride 108 96 - 108 mmol/L [facility] Carbon Dioxide 25 22 - 29 mmol/L [facility] Anion Gap 13 12 - 20 [facility] Urea Nitrogen (BUN) 14 9 - 16 mg/dL [facility] Creatinine, Serum 0.63 0.5 - 1.4 mg/dL [facility] Estimated Glomerular Filt Rate >60 [facility] Comment:Chronic Kidney Disea se: Estimated GFR < 60 mL/min/1.15p0Seoiyw Kidney Disease: Estimated GFR < 15 mL/min/1.73m2 Glucose 105 60 - 115 mg/dL [facility] Calcium 9.2 8.4 - 10.2 mg/dL [facility] Bilirubin, Total 0.4 0.0 - 1.0 mg/dL [facility] Aspartate Amino Transferase 26 5 - 31 U/L [facility] Alanine Aminotransferase 31 0 - 31 U/L [facility] Total Protein 7.7 6.5 - 8.0 g/dL [facility] Albumin Level 4.3 3.5 - 5.0 g/dL [facility] Alkaline Phosphatase 200(H) 39 - 117 U/L [facility] Blood Venous blood specimen / Unknown 04/06/2025 3:11 PM EST 04/06/2025 3:11 PM EST us Nadira Adam MD LAB BLOOD ORDERAB LES Final Result [facility] [address] [place] [phone] * POCT Urine (01/14/2025 12:29 PM EDT) Preg Test, Ur Negative Negative, Indeterminate, None Detected, Invalid, Specimen unsatisfactory for evaluation, Weakly Positive, 2+ QC Media Lot # [id number] Lot# Expiration Date ,026 Urine 01/14/2025 12:2 9 PM EDT Nadira Adam MD POINT OF CARE USHA T ENTER/EDIT ORDERABLES Final Result * ECG 12 lead (01/14/2025 12:05 PM EDT) Narrative Nadira Jo MD - 01/14/2025 12:05 PM EDT EKG today HR 80 Qtc 441, no S1Q3T3 ,no ischemic changes Nadira Adam MD ECG ORDERABLES F inal Result * HM PAP/HPV (05/11/2024 12:00 AM EST) Pathologist [facility] Pap Smear 1. NILM 1. NILM HPV Not Detected Undetected, Indeterminat e, Quantitative , Not Detected Narrative Surekha Posey - 05/11/2024 12:00 AM EST See labs in care everywhere Historical Provider HEALTH MAINTENANCE Edited Result - Final * Hepatitis C Antibody with Reflex to HCV, RNA, Quantitative, Real-Time PCR (10/17/2023 1:50 PM EDT) Pathologist [facility] Hepatitis C Antibody Nonreactive Nonreactive [facility] Comment:Antibodies to HCV no t detected; does not exclude early acuteHCV infection. Blood Venous blood specimen / Unknown 10/17/2023 1:50 PM EDT 10/17/2023 1:50 PM EDT Nadira Adam MD LAB BLOOD ORDERAB LES Final Result Performing Organization Address City/State/[facility] Co de Phone Number [facility] [address] [place] [phone] * HIV-1/2 Antigen and Antibodies, Fourth Generation, with Reflexes (10/17/2023 1:50 PM EDT) Pathologist [facility] HIV AB/AG Nonreactive Nonreactive [facility] Comment:HIV-1 p24 Ag and/or HIV-1/HIV-2 Ab not detected.A test result that is nonreactive does not exclude thepossibility of exposure to or infection with HIV-1 and/orHIV-2. Nonreactive results in this assay for individualswith prior exposure to HIV-1 and/or HIV-2 may be due toantigen and antibody levels that are below the limit ofdetection of this assay.The Senzari HIV Ag/Ab Combo assay result andsupplemental assay results should be interpreted inconjunction with the patient's clinical presentation,history and other laboratory results. If the results areinconsistent with clinical evidence, additional testing issuggested to confirm the result. Blood Venous blood specimen / Unknown 10/17/2023 1:50 PM EDT 10/17/2023 1:50 PM EDT us Nadira Adam MD LAB BLOOD ORDERAB LES Final Result Performing Organization Address [facility] Co de Phone Number [facility] [address] [place] [phone] from Last 3 Months or Most Recently Relevant to Health Maintenance Insurance [employer] Care Teams Ordnance Truck Installation Mechanic Relationship Specialty Start Date End Date Nadira Jo MD [address] [place] [phone] PCP - General Internal Medicine 09/24/22 Emily Acevedo [employer] Sales And Service Manager 08/04/24
--- OUTSIDE RECORDS SUMMARY | 2025-04-06 16:59 | XMS_ITS | Encounter Summary ---
Author Organization [employer] Address [address] [place] [address] 7 [place] [address] Care Team Providers Care Director Speech Language Name Role Phone Srinivasan Elizabeth Esquivel TECHNICIAN TEST SYSTEMS Primary Care Provider Milagros Niru Persaud TECHNICIAN TEST SYSTEMS Primary Care Provider [phone] Marta Levine TECHNICIAN TEST SYSTEMS Primary Care Provider [phone] Nadira Jo MD Primary Care Pro vider Encounter Details Date Type Department Care Team ([facility] st Contact Info) Description 04/23/2022 Orders Only [facility]S [address] [place] [address] Veronique Beebe, JAYSON [address] [place] [address] Candidiasis of vulva and vagina (Primary Dx); Acute vaginitis Social History Tobacco Use Types Packs/Day Years Used Date Smoking Tobacco: Never Passive Smoke Exposure: Never Smokeless Tobacco: Never Alcohol Use Standard Drinks/Week Comments Never 0 (1 standard drink = 0.6 oz pur e alcohol) Comments Unknown Sex and Gender Information Value Date Recorded Sex Assigned at Female 03/04/2022 10:21 AM EDT Legal Sex Female 10:21 AM EDT Gender Identity Female 03/04/2022 10:21 AM EDT Sexual Orientation Straight 03/04/2022 10 :21 AM EDT COVID-19 Exposure Response Date Recorded In the last 10 days, have yo u been in contact with someone who was confirmed or suspected to have Coronavirus/COVID-19? No / Unsure 04/23/2022 9:25 AM EST documented as of this encounter Progress Notes * Veronique Beebe CNM - 04/23/2022 4:53 PM EST Encounter to send in rx for VVC and BV. See Tel notes documented in this encounter Plan of Treatment Not on file documented as of this encounter Visit Diagnoses Diagnosis Candidiasis of vulva and vagina- Primary Acute vaginitis Unspecified vaginitis and vulvovaginitis documented in this encounter Care Teams Director Speech Language Relationship Specialty Start Date End Date Elizabeth Mattson FNP PCP - General Family Medicine 03/26/22 05/12/22 WhitesideNiru FNP [address] [place] [phone] PCP - General Family Medicine 05/13/22 08/13/22 Marta Levine FNP [address] [place] [address] PCP - General Family Medicine 08/14/22 09/23/22 Nadira Jo MD [address] [place] [phone] PCP - General Internal Medicine 09/24/22 Emily Acevedo Compensation And Benefits Analyst 08/04/24 documented as of this encounter
--- OUTSIDE RECORDS SUMMARY | 2025-04-06 16:59 | XMS_ITS | Encounter Summary ---
Author Organization [employer] Address [address] [place] [address] Care Team Providers Care Stereo Equipment Repairer Name Role Phone Nadira Jo MD Primary Care Pro vider Reason for Visit * Reason Onset Date Comments Nurse Triage 04/23/2024 Encounter Details Date Type Department Care Team ([facility] st Contact Info) Description 04/23/2024 Telephone [facility] [address] [place], [place] [phone] Nadira Jo MD [address] [place] [address] Nurse Triage Social History Tobacco Use Types Packs/Day Years [...] encounter Miscellaneous Notes * Telephone Encounter - Anayeli Lu RN - 04/23/2024 3:18 PM EST Call returned to Shivani Amaya to triage below. Reports having daily headaches. Pt recently found out is 9 weeks . Pt has pendign appt with [facility] on 04/29/27. Pt denies nay stiff neck, abd pain, eye pain or blurred vision. Denies any fever or MINISTERIO sx. Pt states was just calling to see what could be taken OTC for pain. Pt advised that Tyelnol is considered safe during . Reviewed dosing for Regular strength and extra strength per clear triage. Acetaminophen - Regular Strength Tylenol: Take 650 mg (two 325 mg pills) by mouth every 4 to 6 hours as needed. Each Regular Strength Tylenol pill has 325 mg of acetaminophen. The most you should take is 10 pills a day (3,250 mg total) Acetaminophen - Extra Strength Tylenol: Take 1,000 mg (two 500 mg pills) every 6 to 8 hours as needed. Each Extra Strength Tylenol pill has 500 mg of acetaminophen. The most you should take is 6 pills a day (3,000 mg total). Also reviewed rest, good hydration, and cold packs. Patient advised to mention during OBGYN visit as well to ensure proper follow up by them. Reviewed [facility] operating hours and that wait times vary. Reviewed home care advise, ER precautions and reasons to call back. Multiple (2) protocols were used on this call. Disposition for Call: Home Care Protocol Used: - Headache (Adult) Protocol-Based Disposition: Home Care Positive Triage Question: * Headache and has not taken pain medications * All higher-acuity triage questions were negative Care Advice Discussed: * Reassurance and Education - Muscle Tension Headache * Pain Medicine During - Acetaminophen * Pain Medicine During - Extra Notes and Warnings * Rest for Headache * Stretching for Headache * Cold Pack for Headache * Headache Diary * Reasons To Call Back - Severe headache lasts over 2 hours after pain medicine - Headache lasts over 24 hours despite using a pain medicine - You become worse Protocol Used: Headache (Adult) Headache handout sent to [phone] * Telephone Encounter - Israel An - 04/23/2024 3:14 PM EST Symptom: Headache Outcome: Transfer to a nurse or provider NOW! Reason: Sudden worst headache of life now The caller accepted this outcome. Contact pt at [phone] documented in this encounter Plan of Treatment Not on file documented as of this encounter Visit Diagnoses Not on filedocumented in this encounter Additional Health Concerns Assessment Noted Time PHQ-9 Depression Total Score: 3 10/14/19 24 3:11 PM EDT documented as of this encounter Care Teams Stereo Equipment Repairer Relationship Specialty Start Date End Date Nadira Jo MD [address] [place] [phone] PCP - General Internal Medicine 09/24/22 Emily Acevedo Woodworking Shop Hand 08/04/24 documented as of this encounter
--- OUTSIDE RECORDS SUMMARY | 2025-04-06 16:59 | XMS_ITS | Encounter Summary ---
Author Organization [employer] Address [address] [facility] [address] [place] [address] Care Team Providers Care Thermoforming Machine Operator Name Role Phone Nadira Jo MD Primary Care Pro vider Encounter Details Date Type Department Care Team ([facility] st Contact Info) Description 01/14/2025 Orders Only [facility] MED [facility] PEDS [address] [place], [place] [phone] Surekha Posey Social History Tobacco Use Types Packs/Day Years [...] Author Patient Health Questionnaire -2 Score 0 01/14/2025 10:56 AM KATHIET Monik Dhaliawl [place] * Little interest or pleasure in doing things Answer Date of Assessment Author Not at all 01/14/2025 10:56 AM Monik Cage [place] * Feeling down, depressed, or hopeless Answer Date of Assessment Author Not at all 01/14/2025 10:56 AM Monik Cage [place] * Trouble falling or staying asleep, or sleeping too much Answer Date of Assessment Author Not at all 01/14/2025 10:56 AM Monik Cage [place] * Feeling tired or having little energy Answer Date of Assessment Author More than half the days 01/14/2025 10:56 AM Monik Cage [place] * Poor appetite or overeating Answer Date of Assessment Author Not at all 01/14/2025 10:56 AM Monik Cage [place] * Feeling bad about yourself - or that you are a failure or have let yourself or your family down Answer Date of Assessment Author Not at all 01/14/2025 10:56 AM Monik Cage [place] * Trouble concentrating on things, such as reading the newspaper or watching television Answer Date of Assessment Author Not at all 01/14/2025 10:56 AM Monik Cage [place] * Moving or speaking so slowly that other people could have noticed? Or the opposite - being so fidgety or restless that you have been moving around a lot more than usual. Answer Date of Assessment Author Not at all 01/14/2025 10:56 AM Monik Cage [place] * Thoughts that you would be better off or hurting yourself in some way Answer Date of Assessment Author Not at all 01/14/2025 10:56 AM Monik Cage [place] * Patient Health Questionnaire-9 Score Answer Date of Assessment Author 2 01/14/2025 10:56 AM Monik Cage [place] * How difficult have these problems made it for you to do your work, take care of things at home, or get along with other people? Answer Date of Assessment Author Not difficult at all 01/14/2025 10:56 AM Monik Gamez [place] * Over the last 2 weeks, how often have you been bothered by any of the following problems? Question Answer Date of Assessment Author Feeling nervous, anxious, or on edge 0 01/14/2025 10:57 AM Monik Cage MA Not being able to stop or co ntrol worrying 0 01/14/2025 10:57 AM Monik Cage MA Worrying too much about diff erent things 0 01/14/2025 10:57 AM Monik Cage [place] Trouble relaxing 0 01/14/2025 10:57 AM Monik Cage [place] Being so restless that it is hard to sit still 0 01/14/2025 10:57 AM Monik Cage MA Becoming easily annoyed or irritable 0 01/14/2025 10:57 AM Monik Cage [place] Feeling afraid as if somethi ng awful might happen 0 01/14/2025 10:57 AM Monik Cage MA GERALDO-7 Total Score 0 01/14/2025 10:57 AM Monik Cage [place] documented as of this encounter Plan of Treatment Not on file documented as of this encounter Procedures Procedure Name Priority Date/Time Associated Diagnosis Comments PAP/HPV Routine 05/11/2024 12:00 AM EST documented in this encounter Results * PAP/HPV (05/11/2024 12:00 AM EST) Pap Smear 1. NILM 1. NILM HPV Not Detected Undetected, Indeterminat e, Quantitative , Not Detected Narrative Surekha Posey - 05/11/2024 12:00 AM EST See labs in care everywhere us Historical Provider HEALTH MAINTENANCE Edited Result - Final documented in this encounter Visit Diagnoses Not on filedocumented in this encounter Additional Health Concerns Assessment Noted Time PHQ-9 Depression Total Score: 2 01/15/20 25 10:56 AM EDT documented as of this encounter Care Teams Thermoforming Machine Operator Relationship Specialty Start Date End Date Nadira Jo MD [address] [place] [address] PCP - General Internal Medicine 09/24/22 Emily Acevedo Milking Machine Technician 08/04/24 documented as of this encounter
--- OUTSIDE RECORDS SUMMARY | 2025-04-06 16:59 | XMS_ITS | Encounter Summary ---
Author Organization [facility] Address [address] [place] [phone] Phone Care Team Providers Care Structural Steel Detailer Name Role Phone Nadira Jo MD Primary Care Pro vider Reason for Referral * MRI/CAT Scan - Closed Specialty Diagnoses / Procedures Referred By Contac t Referred To Contact Radiology Diagnoses Acute intractable headache, unspecified headache type Tinnitus of both ears 20 weeks gestation of Procedures MRI Angio Brain Enio Ortiz MD Phone: tel: fax: [email or web address] Referral ID Status Reason Start Date Expiration Date Visits Re quested Visits Authorized [id number] Closed 08/31/2024 08/31/2025 1 1 Encounter Details Date Type Department Care Team (Late st Contact Info) Description 08/31/2024 Ancillary Orders [facility] Neurology [address] [place] [phone] Enio Ortiz MD [address] [facility], 2nd [place] [address] [email or web address] Acute intractable headache, unspecified headache type (Primary Dx); Tinnitus of both ears; 20 weeks gestation of Social History Tobacco Use Types Packs/Day Years [...] on file documented as of this encounter Results * MRI ANGIO BRAIN (VENOUS ONLY) WITHOUT CONTRAST (09/01/2024 11:30 AM EDT) Anatomical Region Laterality Modality Head Magnetic Resonan ce 09/01/2024 12:4 6 PM EDT Impressions 09/01/2024 12:55 PM EDT 1. 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 In correlation with the prior brain MRI, the findings are most likely due to idiopathic intracranial hypertension. 2. No definite evidence of dural venous sinus thrombosis. Narrative 09/01/2024 12:55 PM EDT MRI ANGIO BRAIN (VENOUS ONLY) WITHOUT CONTRAST Referring clinician's provided indication for this examination in Epic: * Headache, new or worsening, post exertion or sex (Age 19-49y); Rule out IIH, VST - patient is 20 weeks TECHNIQUE: MRV of the head was performed without contrast. Maximal intensity projection 3D angiographic reformatted images were performed. COMPARISON: MRI BRAIN WITHOUT CONTRAST ; MRI ANGIO BRAIN (ARTERIAL & VENOUS PHASES) WITHOUT CONTRAST FINDINGS: MRV HEAD: There are symmetric stenoses of the the bilateral transverse sinus-sigmoid sinus junctions. There is an arachnoid granulation in the lateral left transverse sinus. Serpiginous lack of flow related signal in the transverse and sigmoid sinuses is likely due to turbulent flow from the stenoses. There is no definite evidence of dural venous sinus thrombosis. There is normal flow related signal in the superior sagittal sinus and cortical veins. There is normal flow related signal in the internal cerebral veins, vein of Cosme, and straight sinus. Procedure Note Juan R Goldberg MD - 09/01/2024 MRI ANGIO BRAIN (VENOUS ONLY) WITHOUT CONTRAST Referring clinician's provided indication for this examination in Epic: *Headache, new or worsening, post exertion or sex (Age 19-49y); Rule outIIH, VST - patient is 20 weeks TECHNIQUE: MRV of the head was performed without contrast. Maximalintensity projection 3D angiographic reformatted images were performed. COMPARISON: MRI BRAIN WITHOUT CONTRAST ; MRI ANGIO BRAIN(ARTERIAL & VENOUS PHASES) WITHOUT CONTRAST FINDINGS: MRV HEAD: There are symmetric stenoses of the the bilateral transverse sinus-sigmoidsinus junctions. There is an arachnoid granulation in the lateral lefttransverse sinus. Serpiginous lack of flow related signal in thetransverse and sigmoid sinuses is likely due to turbulent flow from thestenoses. There is no definite evidence of dural venous sinus thrombosis.There is normal flow related signal in the superior sagittal sinus andcortical veins. There is normal flow related signal in the internalcerebral veins, vein of Cosme, and straight sinus. IMPRESSION: 1. Symmetric stenoses of the bilateral transverse sinus-sigmoid sinusjunctions. In correlation with the prior brain MRI, the findings are mostlikely due to idiopathic intracranial hypertension. 2. No definite evidence of dural venous sinus thrombosis. Enio Ortiz MD IMG MR HEAD/NECK Final Result documented in this encounter Visit Diagnoses Diagnosis Acute intractable headache, unspecified headache type- Primary Tinnitus of both ears Unspecified tinnitus 20 weeks gestation of Acute intractable headache, unspecified headache type Tinnitus of both ears Unspecified tinnitus 20 weeks gestation of documented in this encounter Care Teams Structural Steel Detailer Relationship Specialty Start Date End Date Nadira Jo MD [address] [place] [address] PCP - General Internal Medicine 10/10/22 documented as of this encounter Additional Source Comments The information contained in this document represents components of the legal health record. It is not the complete legal health record.[facility]
--- OUTSIDE RECORDS SUMMARY | 2025-04-06 16:59 | XMS_ITS | Encounter Summary ---
Author Organization [employer] Address [address] [place] [address] 7 [place] [address] Care Team Providers Care Passenger Car Inspector Name Role Phone Elizabeth Mattson Primary Care Provider Milagros Niru Persaud RECYCLER FORKLIFT DRIVER TRUCK DRIVER Primary Care Provider [phone] Marta Levine RECYCLER FORKLIFT DRIVER TRUCK DRIVER Primary Care Provider [phone] Nadira Jo MD Primary Care Pro vider Reason for Visit * Reason Comments Med Change Request Encounter Details Date Type Department Care Team (Late st Contact Info) Description 04/24/[address] [facility] [address] [place] [address] Elizabeth Mattson FNP Positive test Social History Tobacco Use Types Packs/Day Years [...] AM EST documented as of this encounter Miscellaneous Notes * Telephone Encounter - TYRON Arriola - 04/24/2022 5:37 PM EST DUPLICATE documented in this encounter Plan of Treatment Not on file documented as of this encounter Visit Diagnoses Diagnosis Positive test examination or test, positive result documented in this encounter Care Teams Passenger Car Inspector Relationship Specialty Start Date End Date Elizabeth Mattson FNP PCP - General Family Medicine 03/26/22 05/12/22 HighlandNiru FNP [address] [place] [address] PCP - General Family Medicine 05/13/22 08/13/22 Marta Levine FNP [address] [place] [address] PCP - General Family Medicine 08/14/22 09/23/22 Nadira Jo MD [address] [place] [address] PCP - General Internal Medicine 09/24/22 Emily Acevedo Medical Records Specialist 08/04/24 documented as of this encounter
--- OUTSIDE RECORDS SUMMARY | 2025-04-06 16:59 | XMS_ITS | Clinical Summary ---
Author Organization [facility] Address [address] [place] [id number] Phone Care Team Providers Care [employer] Consultant Name Role Phone Nadira Jo MD Primary Care Pro vider Allergies No known active allergies Medications acetaminophen (TYLENOL) 325 mg tablet Take 3 tablets (975 mg total) by mouth every 6 (six) hours as needed. 0 12/27/19 23 Active Additional Information Patient not taking.Reported on 02/04/2025 omeprazole (PRILOSEC) 20 MG capsule Take 1 capsule by mouth 2 (two) times a day. 03/29/20 24 Active ondansetron (ZOFRAN-ODT) 4 MG disintegrating tabletIndications: Nausea and vomiting during ,Encounte r for supervision of other normal in first trimester Take 1 tablet (4 mg total) by mouth every 8 (eight) hours as needed for nausea. 30 tablet 4 07/22/19 25 Active SUMAtriptan (IMITREX) 25 MG tabletIndications: Acute intractable headache, unspecified headache type Take 25-50mg (1-2 tablets) per dose. Can repeat dose in 2 hours if needed. Do not exceed 2 doses in a 24 hour period. Max dose 200mg/ day 18 tablet 5 07/27/19 25 Active Additional Information Patient not taking.Reported on 02/04/2025 28 mg iron- 800 mcg TabIndications:Sup ervision of normal Take 1 tablet by mouth every morning. 90 tablet 3 08/29/19 25 Active propranoloL (INDERAL) 20 MG immediate release tabletIndications: Intractable migraine without aura and without status migrainosus Take 1 tablet (20 mg total) by mouth 3 (three) times a day. 60 tablet 5 09/22/19 25 Active Additional Information Patient not taking.Reported on 02/04/2025 ONEDIONY DELICA LANCETS 30 gauge MiscIndications:Ge stational diabetes mellitus (GDM) in third trimester, gestational diabetes method of control unspecified 1 each by Miscellaneous route as needed (4 times daily- fasting and 1 hr postprandial). 150 each 11 10/06/19 25 Active Additional Information Patient not taking.Reported on 02/04/2025 valACYclovir (VALTREX) 500 MG tabletIndications: Herpes simplex infection of genitourinary system Take 1 tablet (500 mg total) by mouth 2 (two) times a day as needed (with outbreak). 14 tablet 1 12/19/19 25 Active Additional Information Patient not taking.Reported on 02/04/2025 oxyCODONE 5 MG immediate release tabletIndications: pain Take 1 tablet (5 mg total) by mouth every 4 (four) hours as needed for pain (specific location in comments) (severe low abdominal pain). Partial fill ok 10 tablet 12/15/19 25 Active Additional Information Patient not taking.Reported on 02/04/2025 ibuprofen (ADVIL,MOTRIN) 600 MG tabletIndications: pain Take 1 tablet (600 mg total) by mouth every 6 (six) hours as needed for pain (specific location in comments) (uterine). 30 tablet 12/15/19 25 Active Additional Information Patient not taking.Reported on 02/04/2025 ferrous sulfate 325 mg (65 mg havasupai iron) tabletIndications: History of anemia TAKE 1 TABLET BY MOUTH EVERY DAY WITH BREAKFAST 90 tablet 1 01/05/20 25 Active norethindrone (MICRONOR) 0.35 mg tablet Take 1 tablet (0.35 mg total) by mouth daily. 28 tablet 11 02/05/20 25 Active Active Problems Problem Noted Date Diagnosed Date endometritis 12/21/2024 Overview (12/21/2024): Presumed endometritis, not febrile, treated w orals as outpt Encounter for induction of labor 11/19/2024 Overview (11/19/2024): informed consent for induction reviewed 11/18. 0/50/-2 on admission. 2200 on 11/18- therapeutic rest initiated (3 nights insomnia d/t severe symphysis pubis pain) 0000 on 11/19: misoprostol 25mg PV Plan to continue with 50mcg buccal q [address] cook balloon in am at client's request Pain in symphysis pubis during 025 Overview (11/19/2024): In late third trimester Normal intrauterine , antepartum 2024 Decreased movement aff ecting management of mother, antepartum 11/18/2024 Assessment & Plan (11/18/2024 11:20 AM EDT): Pt reports minimal movement today and for the last few days. Movement on BPP today only achieved with stim. To [facility] for NST and further evaluation Polyhydramnios affecting 11/04/2024 Overview (11/04/2024): Polyhydramnios defined as SIMRAN >=24, or MVP >=8 L2, growth, and consider re-screening for diabetes amnio-reduction for maternal discomfort/dyspnea only If severe poly (SIMRAN >=35 or MVP >=16) MFM consult and delivery at tertiary care (due to very high rate of anomalies) Weekly BPP starting at time of diagnosis EFW at diagnosis and q 4 weeks Induction at 39 weeks (optional for mild poly, SIMRAN 25-29.9; recommended for moderate poly, 30-34.9) Assessment & Plan (11/18/2024 2:07 PM EDT): Polyhydramnios by MVP Assessment & Plan (11/12/2024 11:32 AM EDT): SIMRAN 17 today with MVP of 8.3 Assessment & Plan (11/04/2024 4:22 PM EDT): SIMRAN 27.05 today. Discussed dx, testing, and rationale. Pt demonstrated understanding. Uterine size-date discrepancy in third trimester 10/08/2024 Assessment & Plan (11/18/2024 2:10 PM EDT): 7#12 oz EFW at 35 weeks Assessment & Plan (10/08/2024 11:14 AM EDT): She has ultrasound scheduled for next week. Insulin controlled gestation al diabetes mellitus (GDM) in third trimester 10/03/2024 Overview (11/19/2024): 1 hr 180, 3hr GTT - positive for GDM Diabetes on medications Insulin 15U evening - up to 18u QHS on 10/27 o refer to CEDE o 32 wks: BPP o 36 wks add NST o growth q 4 weeks - EFW 95.5%ile, AC 94th %ile at 31wks; 35wks* o Induction at 39-40.0 wks End of third trimester very elevated glucose levels including fasting > 110. Dr Fabian consulted with MFM at [facility] on 11/18 who recommends getting blood sugars under better control over the next 18 hours and then begin IOL evening of 11/18 or 11/19 Assessment & Plan (11/19/2024 12:37 AM EDT): Lantus increased to 30 units nightly, has not required additional supplemental insulin since admission. CBG 104 prior to dinner at 1700 on 11/18 and 94 at 9:17pm Assessment & Plan (11/18/2024 11:18 AM EDT): Despite recent increase in insulin. FBS is 114-130 and PP 170s-210s Pt to [facility] for more comprehensive evaluation. Assessment & Plan (11/12/2024 11:31 AM EDT): 8/8 BPP today. SIMRAN 17 with MVP of 8.3. growth at the 98%. Ultrasounds scheduled out. Will start NSTs next week. Scheduled at the [facility] on 11/18 and 11/25. Reports that sugars are still high. Is working with [facility]. Next appointment is on Friday. Reviewed that we may consider at 38 week induction if sugars continue to not be well controlled. Assessment & Plan (11/04/2024 4:27 PM EDT): Pt reports followed by JEN. Recent increase in insulin. Assessment & Plan (10/27/2024 4:23 PM EDT): Still having some elevated CBG values, particularly fasting. Received msg to increase insulin to 18u qhs starting this evening. Has CEDE f/u visit next week. Assessment & Plan (10/14/2024 4:29 PM EDT): Shivani presents for an initial visit in the [facility]. She is 31w6d gestation, completed one hour GTT with BG of 180 mg/dl, 3 hour GTT with fasting BG of 110 mg/dl, then 1, 2, 3 hour tests of 177, 162, 138 respectively and subsequently diagnosed with gestational diabetes. Has been monitoring sugars, fastings are elevated despite some nights not eating dinner/snack, continued elevations with eating dinner Reviewed blood sugar targets in , testing frequency and provided a glucose log. Discussed need for medication to affect fasting blood sugars, discussed basal insulin, taking once daily to help improve fastings, and be closer to goal <95, Shivani is apprehensive, but agreeable to plan after hearing risks of hyperglycemia in Prescription sent to start at 10 units daily insulin glargine, this is <0.1u/kg/day to help reduce risk of hypoglycemia and increase confidence for Shivani in dosing Postprandials are oftentimes elevated as well, but this is likely more significant due to being at a higher baseline with fasting hyperglycemia Shivani will send BG and food logs into me weekly. We discussed gestational diabetes, implications and risks, and treatment plans depending on blood sugars. We will review sugars in one week to evaluate treatment plan. Encouraged continued efforts at balanced, mindful eating Encouraged continued efforts with physical activity as tolerated Reviewed hypoglycemia treatment Shivani will follow-up with Adriane in 4 weeks, sending weekly logs in between. Encouraged reaching out to me with any questions or concerns. Instruction/Education: Medication: Insulin Medication: Glargine Instruction: Provider order reviewed with patient. When to take medication, dosage, and how to take medication. Information given on troubleshooting and side effects of medication. Education Materials Provided: BD pen needle handout Insulin /Medication Instruction: Patient was instructed on the following topics: insulin pen, needle disposal, site selection, insulin storage Education Topics Discussed: medication, and diabetes, treatment of low BG using rule of 15 Patient Demonstrated: Injection with demo insulin pen, glucose monitoring , reviewed today, demonstrates good technique, good understanding Assessment & Plan (10/13/2024 4:53 PM EDT): BPP today 12/10, EFW 95%ile, vertex. Shivani reports that her fasting blood sugars have been very high at 140-150. Her postprandials yesterday were 140 and 137 at two hours after breakfast and lunch, and 197 one hour after dinner. She has CEDE appt tomorrow. Advised her that she will started on insulin by CEDE tomorrow. As this will most likely continue to be a with GDMA2, I advised that I will be adding on weekly BPPs with visits. She will need NSTs added at 36 weeks and I will add these as well. Recommend MD visit at [facility] after [facility] appt to check in on BS management. Assessment & Plan (10/08/2024 11:01 AM EDT): Her 3-hour GTT showed 2 abnormal values. Of note, her fasting glucose was 110. Referral to the diabetes center has been made. I suspect that with these elevated fasting levels, insulin will be recommended. She has weekly testing scheduled to start next week. Encounter for supervision of normal in third trimester 04/29/2024 Overview (10/27/2024): CNM Group PN care? No screening Neg cfDNA Baby ASA? NI Rh pos GC/Chlam neg PAP 2024: NIL/HPV neg Flu Declined COVID-19 * Hgb 9.1 GTT 180 with 2 abnormal values on 3 hour GTT Repeat RPR neg Tdap * EPDS * PPBC - vasectomy GBS * Feeding Plan Breast Expecting baby boy; wants circ Assessment & Plan (11/18/2024 11:22 AM EDT): Shivani is feeling ok, concerned about well being, elevated BS despite insulin titration and when she may be induced. Baby moved only with stim yesterday. Pt denies vb, lof. To [facility], report given to Laurence Vallecillo CNM Assessment & Plan (11/12/2024 11:33 AM EDT): Shivani is getting more uncomfortable. Feels heavy, having some pelvic pressure. Getting some alexandra spann. Baby is moving well. Assessment & Plan (11/04/2024 4:26 PM EDT): Telehealth visit today to review US Pt reports active baby. No vb, lof, ctxs RIRI 1 wk Assessment & Plan (10/27/2024 4:28 PM EDT): Shivani is a 29yo at 33w5d here today w/her two daughters - active baby; denies VB, LOF Feeling well w/o complaint, just tired Desires Tdap, but wants to defer to [place] d/t kids w/her today Discussed R/B/As, logistics of circumcision procedure - desires Warning signs & calling guidelines reviewed RIRI/BPP as scheduled in 1wk or prn Assessment & Plan (10/13/2024 4:47 PM EDT): Shivani is a 29yo at 31w5d who presents to routine OB visit after u/s. Here with adorable daughter Selene. Denies Ctx, VB, LOF, or DFM. Focus of this visit around GDM that is not well managed currently and seeing CEDE for first time tomorrow, see problem. Recommend MD visit with next appt. Rev when to call. RTO 1 wk. Assessment & Plan (10/08/2024 10:58 AM EDT): She notes good movement. She denies any vaginal bleeding, leakage of fluid, or regular contractions. Overall, she is doing well and has no acute complaints. Tdap at next visit. Assessment & Plan (09/28/2024 1:41 PM EDT): Shivani is a 29yo at 29w4d who presents to routine OB visit. Reports to be doing okay, some discomforts. Reports she is getting ctx more frequently, nothing consistent. Also continuing to deal with pelvic pain but feels this is stable, not worsening, so far has been more manageable for her than with last , she states. Had been referred to [facility] for virtual PFPT, but hasn't received any call to set up appt, this CNM will follow up. Believes she has ear infection on left side, having a lot of ear pain, advised that she should present to urgent care or contact her PCP for appt. Shivani is completing GTT/CBC/RPR today. Rev T3 warning signs. RTO 2 wks. Assessment & Plan (08/31/2024 1:06 PM EDT): T3 labs ordered to do during NV. Tandem nursing, feeling tired. Asking about pumping only and getting baby used to bottle bc toddler never would take one. Sebastián she disc w LC while at [facility] for this baby. Reviewed comfort measures. Reviewed steps to take toward optimal health in . Reviewed s/s PTL, danger signs, when/how to call. Assessment & Plan (07/26/2024 12:33 PM EDT): Not feeling baby move yet- reviewed anterior position of placenta and how it may take longer to notice Reviewed warning S/S, knows how/when to call/present F/U in 4w or sooner PRN Assessment & Plan (07/11/2024 11:37 AM EDT): Shivani is a 29 y.o. at 17w6d doing ok. Order for anatomy US placed and requested for 2-3 weeks with appt to follow. Assessment & Plan (04/29/2024 10:13 AM EST): Shivani is a 29 y.o. at 7w6d states she feels well today. Denies any concerns at this time. Denies any LOF/Vaginal bleeding/Ucs. -Advised on quickening and what to expect in the upcoming weeks -Review warning signs and when/how to contact midwives -Early US ordered. Advised that our OBs review all of our US and may make further recommendations. -Reviewed lab work that will be drawn at [facility] including genetic testing -Oriented to the practice and patient portal -Advised on care structure Obesity affecting in first trimester 1 06/30/2023 Overview (05/19/2024): Obesity in (BMI >30) BMI at Intake 41 Pre- BMI > 45 transfer to tertiary care - BMI measured at first in- person appointment, applies to patients entering entering into care from 11/03/23 on Recommend daily baby aspirin (162 mg daily) if another risk factor is present (nulliparity, family h/o pre-eclampsia in mother or sister, age >= 35, IVF , previous with SGA, previous stillbirth, interval >= 10 years between pregnancies) -- NI First trimester screen for diabetes - HgbA1c w intake labs: 4.9 Nutrition counseling 11-20lb weight gain surveillance: Pre- BMI 40 or more, weekly testing at 34 weeks, EFW 32 and 36 weeks Induction only if indicated PP lovenox according to guidelines Assessment & Plan (10/27/2024 4:21 PM EDT): 12/10 BPP, abisai Bravo (preliminary report) Has BPPs scheduled going forward Assessment & Plan (09/29/2024 9:40 PM EDT): This CNM to order the needed surveillance starting next visit. Pt will schedule her growth u/s for next visit at checkout today and this CNM will have scheduling call her to schedule out the remainder. Assessment & Plan (07/26/2024 12:30 PM EDT): EFW 84% on 07/23/24 Pain of female symphysis pubis 12/25/2022 Overview (05/19/2024): Possible diastasis , severe pain with movement interrupting sleep and requiring oxycodone 5mg q 4 hours. Saw PT inpatient. No barriers to care but ambulating for household tasks or running errands may be very difficult or not possible until pain improves, particularly in context. Limited support at home, consider case mgmt eval to see if qualifies for home based care such as PT or support with IADL, etc. 05/19/24: Continues to be bother her. Open to PT, referral sent. Assessment & Plan (09/29/2024 9:38 PM EDT): Will follow up on [facility] referral. Pt has not received call to schedule PFPT with [facility]. Assessment & Plan (08/31/2024 1:03 PM EDT): Had car trouble and never made it to PT appts. Very interested in telehealth [facility]--referral sent. Assessment & Plan (07/26/2024 12:23 PM EDT): Some pain with walking Recommendation yoga positions Assessment & Plan (12/25/2022 11:51 AM EDT): Consider outpatient pelvic floor PT referral prior to discharge if not eligible for home PT. If eligible for home PT, refer at visit if needed. Urinary incontinence, mixed 12/25/2022 Overview (12/25/2022): Intermittent urge and stress urinary incontinence, onset during , worse on day 1 pp. Able to feel urge to void, no sensation of incomplete emptying. May be interested in pelvic floor PT for this and symphysis pubis dysfunction. At risk for depressed mood during per iod 12/25/2022 Overview (12/25/2022): Limited social support, acute pain from symphysis pubis, mild anemia, etc. Consider schedule 2 week pp visit, other community support services as needed, CHD as needed. Assessment & Plan (07/26/2024 12:22 PM EDT): Hates being but overall mood good and feels well supported as of today 07/26/24 Assessment & Plan (12/25/2022 11:54 AM EDT): Offered supportive and encouragement. Very limited brainstorming about support resources. Client has some family and friends in the area who may able to offer support if needed, unsure if she would want to ask. Anemia affecting in third trimester Overview (10/27/2024): Plan on repeat CBC in one month after iron supplementation >>OVERVIEW FOR ANEMIA WRITTEN ON 10/03/2024 10:43 AM BY OCHOA HORVATH CNM, MPH 30w Hgb 9.2, iron studies added to 3hr GTT Hgb < 10 Full anemia panel within 1-2 weeks Empiric PO iron If iron deficiency is confirmed (ferritin <30 OR TSat <14% OR chronic disease state +TSat <20%, even if ferritin >30), continue PO iron x 4 weeks and recheck CBC; if Hgb does not improve by at least 1 g/dL, review compliance and consider IV iron If iron deficiency is not present, work up and treat as indicated, or refer Hgb > or = 10 Continue PO iron x 4 weeks and recheck CBC; if Hgb does not improve by at least 1 g/dL, treat based on above recommendations Full anemia panel: CBC Ferritin TIBC Serum iron Folate B12 Reticulocyte count Reference: [employer] [facility] Assessment & Plan (11/19/2024 12:29 AM EDT): severe anemia on iron, was planning Iron Infusion- will defer to giving timing of delivery. Hemoglobin 8.7 P: Will need 2 IVs In labor and active management of 3rd stage Assessment & Plan (11/11/2024 5:56 PM EDT): Recommended iron infusion. Therapy plan entered and prior auth started Assessment & Plan (10/27/2024 4:20 PM EDT): Taking BID (mostly - when she remembers) iron. Unable to stay for repeat CBC today, but will get it done soon. Discussed ideal rise, possibility of IV iron. Assessment & Plan (10/27/2024 4:19 PM EDT): >>ASSESSMENT AND PLAN FOR ANEMIA WRITTEN ON 10/23/2022 10:08 AM BY RADHA WILSON CNM We discussed lab results and importance of iron rich foods. Rx'd [id number] with instructions. Assessment & Plan (10/27/2024 4:19 PM EDT): >>ASSESSMENT AND PLAN FOR ANEMIA WRITTEN ON 12/25/2022 11:43 AM BY DENNIS HUI CNM Hemoglobin 9.0 on day 1 . Continue iron supplementation . Assessment & Plan (10/08/2024 11:00 AM EDT): Recommended taking iron twice daily. Hiatal hernia with GERD 07/10/2022 Overview (07/10/2022): Has never had endoscopy, diagnosed on what [...] titrate up at next visit if needed. Assessment & Plan (04/29/2024 10:17 AM EST): -Cont taking Prilosec Daily Assessment & Plan (07/10/2022 6:37 PM EST): Has never had endoscopy, diagnosed on what [...] titrate up at next visit if needed. Susceptible to varicella (non-immune), currently 06/14/2022 Overview (04/29/2024): Offer varivax pp 04/29/24 Did not receive Vaccine PP. Pls offer vaccine during PP at [facility] Assessment & Plan (11/19/2024 12:27 AM EDT): Offer varicella immunization PP Assessment & Plan (07/26/2024 12:22 PM EDT): Provided information regarding recommendation Expresses understanding and agrees with plan Assessment & Plan (04/29/2024 10:14 AM EST): 04/29/24 Did not receive Vaccine PP. Pls offer vaccine during PP at [facility] Assessment & Plan (12/25/2022 11:43 AM EDT): Offer varicella vaccine before discharge, not discussed today. Nausea and vomiting during 06/07/2022 Overview (05/19/2024): Zofran is helping her stay hydrated. Uses w colace. Assessment & Plan (07/26/2024 12:21 PM EDT): Still taking Zofran daily, throughout the day Food intake limited- ham and cheese sandwiches or cereal Water makes her nauseous- can tolerate apple juice and milk Assessment & Plan (04/29/2024 10:17 AM EST): -B6 and Unisom did not work last time -Zofran worked -Rx for zofran sent to her pharmacy Assessment & Plan (07/18/2022 12:46 PM EDT): Continues to have daily nausea but notes some improvement with combo of zofran and omeprazole. Not vomiting very often. Still eating a very bland diet. So far 19 lbs weight loss. Reviewed strategies for increasing nutritional intake. Smoothies have worked pretty well for her. Consider growth scans in third trimester if weight loss is persistent. Assessment & Plan (06/20/2022 4:39 PM EST): Pt is a 27yo @ 12+4wks Pt struggling to keep any food down. Pt has only had water today, and yesterday just had a can of mo. Pt states sx may have improved since starting reglan and zofran but feels weak and shakey. Pt sent to [facility] for IV rehydration and labs. Also c/o dysurina and vaginal burning which will be evaluated there. Herpes simplex infection of genitourinary system 05/17/2022 Overview (11/18/2024): Does not have outbreaks. Reviewed with start suppression at 36 weeks Does not want diagnosis or valacyclovir discussed in front of partner or family members Assessment & Plan (11/18/2024 2:00 PM EDT): On daily suppression Assessment & Plan (11/04/2024 4:26 PM EDT): Start suppression at [place] Assessment & Plan (10/08/2024 10:55 AM EDT): Plan to start suppression at 36 weeks. Assessment & Plan (04/29/2024 10:16 AM EST): -Has not had an outbreak -Will take suppression at 36wks Assessment & Plan (12/11/2022 11:39 AM EDT): Reports she has an outbreak now--discussed dosing for an outbreak is the same as suppression in PG--cont valtrex 500 BID until delivery. Disc that we will inspect carefully upon admission to [facility]. Assessment & Plan (12/07/2022 2:02 PM EDT): -Has a c/s scheduled -Discussed starting suppression anyway in the event of spontaneous quick labor History of endometritis 05/17/2022 Overview (05/17/2022): Was admitted 2 weeks after of first baby with endometritis and was treated with IV antibiotics Resolved Problems Problem Noted Date Diagnosed Date Resolved Date Maternal varicella, non-immune 06/21/2024 07/26/2024 Overview (06/21/2024): Offer Vaccine PP Assessment & Plan (07/26/2024 12:14 PM EDT): Provided information regarding recommendation Expresses understanding and agrees with plan headache in second trimester 06/02/2024 11/12/2024 Overview (08/31/2024): Severe, daily migraines not relieved with tylenol. Headaches predate but have worsened with . Saw PCP on 06/02/24- urgent neuro consult placed and daily mag oxide recommended 08/2024: Neuro c/s done in chart--> had Neg ophthalmology eval and had MRI, results pending Plan for Sumatriptan & tylenol prn w Mg supp. Assessment & Plan (08/31/2024 1:02 PM EDT): Neuro c/s done in chart--> had Neg ophthalmology eval and had MRI, results pending Plan for Sumatriptan & tylenol prn w Mg supp. Assessment & Plan (07/26/2024 12:31 PM EDT): Migraines continue daily, no real relief Neuro consult today 07/26/24 Assessment & Plan (07/11/2024 11:36 AM EDT): Has still continued to have migraines which has been challenging. Her PCP recommended she take her BP daily - we reviewed what a normal BP would be and to call with BP 140 or > for top number or 90 or > for bottom number. I also reviewed for her to bring in cuff at [facility]. We discussed that preeclampsia is something that occurs in the latter half of the and most often in the third trimester. Has Neuro appt scheduled. Encounter for consultation f or female sterilization 05/19/2024 10/27/2024 Overview (05/19/2024): Desires BTL in immediate PP period. Sign consent in early T3:____ Assessment & Plan (07/26/2024 12:33 PM EDT): Having second thoughts regarding salpingectomy d/t removal of tubes, will have consult when ready Would really like to have partner have vasectomy- suggested consult Assessment & Plan (07/11/2024 11:33 AM EDT): Has some questions about Tubal - we reviewed today. Discussed it would be up to MD if she would be able to have immediate PP Tubal which inpatient or need to have an interval tubal. Plan to discuss again and sign consent at 28 weeks if she would like Tubal Normal intrauterine , antepartum 12/22/2022 12/26/2022 control counseling 12/07/2022 Overview (12/11/2022): She had a bad experience w IUD in past, does not want any hormones, and not ready for a BTL. She and her partner plan to use condoms. Assessment & Plan (12/07/2022 2:05 PM EDT): -Pt thinks this is her last . Briefly discussed BTL since she is having a C/S. Shivani states that she is not ready to get a BTL at this time. -Also counseled on immediate PP IUD. Counseled about the risks and benefits of the device including: - placement procedure, - possible need for trimming of the strings at a later date, - the increased risk of IUD expulsion (up to 24% after a vaginal delivery and up to 8% after a delivery, compared to 5-10% after outpatient placement) but that patients who have IUD placed immediately are more likely to be using an IUD at 6 months compared to those who have it placed outpatient. Discussed IUD is compatible with , does not impact infant growth and development, can be removed at any time for any reason, and that immediate PP placement may not be possible if there are contraindications such as heavy bleeding or infection. Patient is unsure if she wants this method or not. Will like some time to think about her options. Please touch base w/ her NV on preferred method of BC Placental abnormality in third trimester 10/09/2022 04/29/2024 Overview (12/11/2022): RESOLVED--confirmed NO LLP, previa, or accessory lobe near cervix w vaginal scan at 32w by [facility]--see report under Media. Pelvic Rest until resolves/No vigorous exercise For acute bleeding Admit to L&D Consider steroids & tocolysis &mag. Consider hospitalization after second sig. bleed Monthly ultrasound for placental location starting at 28 weeks (until >2cm from os) C/S at 36 0/7-37 6/7 weeks or sooner for acute hemorrhage and/or mother or baby is unstable. Type & Cross for 2-4 units on admit ? Of accessory lobe. Sent to [facility] for Level 2. Unable to tell if there was an accessory lobe that covered the cervix. Recommended repeat ultrasound at [facility] in 1 month. Reviewed previa warnings and recommended pelvic rest. Assessment & Plan (12/11/2022 11:43 AM EDT): RESOLVED--confirmed NO LLP, previa, or accessory lobe near cervix w vaginal scan at 32w by [facility]--see report under Media. Assessment & Plan (11/06/2022 11:47 AM EDT): Shivani has an ultrasound at [facility] this afternoon at 1pm. Shivani is anxious to schedule c/s. Will await u/s report and if previa is still present, will send request for scheduling. She continues to have no bleeding. Assessment & Plan (10/23/2022 10:06 AM EDT): Pt has next US on November 06 at [facility] Assessment & Plan (10/09/2022 5:06 PM EDT): ? Of accessory lobe. Sent to [facility] for Level 2. Unable to tell if there was an accessory lobe that covered the cervix. Recommended repeat ultrasound at [facility] in 1 month. Reviewed previa warnings and recommended pelvic rest. COVID-19 affecting in first trimester 06/21/2022 04/29/2024 Overview (06/21/2022): Date of symptom onset or positive test: 06/20/22 Gestational age at diagnosis: 12 5/7 weeks Virtual visits for non-urgent care until COVID-19 infection status is resolved as defined by current B policy: https://[facility].org/hub/departments/emergency_preparedness/covi d19/c lznb23_zqikawmx_uvwfvjav/infection_statuses_and_resolution_ Offer Monoclonal antibody therapy if appropriate: o [employer]) Click Browse Manuals >> [employer] Departmental Documents & Policies >> OB-ELECTRICIAN [employer]QU[employer]MENT Department Documents >> COVID-19 >> OB related guidance >> Outpatient >> Obstetrics Outpatient Therapy For Symptomatic COVID not requiring hospitalization Shared Decision Making Talking Points Routine anatomy survey at 18-20 weeks Offer growth US at 30-32 weeks (or 2-4 weeks after infection occurring after 32 weeks) Supervision of normal 05/17/2022 04/29/2024 Overview (12/11/2022): CNM OB-CMI score: 2 [05/17/2022] Rh pos GC/Chlam neg PAP getting records from pp Tdap 11/06/22 Flu * COVID-19 needs booster Hgb 9.8 GTT 115 28 wk Repeat RPR NR GBS POS PPBC Condoms screening cfdna and carrier screening. Both negative. Assessment & Plan (12/20/2022 1:58 PM EDT): Shivani is here with her family. She is doing ok. Vaginal symptoms were not improving with BV treatment. She went to urgent care and was diagnosed with a yeast infection. She tried monistat last night but had a bad reaction, lots of burning, very uncomfortable. Rx for diflucan sent. She is really ready for induction on Friday. Declines exam today. Will come Friday evening. Expectations for labor induction reviewed. All questions answered. Baby is moving well. Assessment & Plan (12/11/2022 11:58 AM EDT): Long discussion today w Shivani about her desire for elective C/S. Her main motivation is wanting to be done w the PG and fear of pain. We disc that another option was an elective IOL on the same day at 39w. She didn't realize this was an option and feels relieved to learn this. She had an epidural in the past which worked well, but remembers having to wait to get it. We disc an option of an early epidural in labor, whenever she feels she needs it, and this also made her feel reassured about laboring. We disc the difference in pain PP after an SVB vs a CS, and she hadn't thought about the recovery process for CS, which is hard to predict how it will go. I also disc w her that if there are any concerns during the IOL process we could proceed w an unplanned CS, which the unit is always ready for. Reviewed the process of IOL, both ripening and pitocin. After this lengthy discussion, she is opting to cancel the elective CS and wishes to proceed with elective IOL at 39w. CS canceled and pt scheduled for IOL 12/22 at 1830. 3rd tri comforts measures reviewed. Disc steps to take toward optimal health in . Reviewed s/s labor, danger signs, when/how to call. Assessment & Plan (12/07/2022 2:01 PM EDT): Shivani is a 27 y.o. at 36w3d states she feels well today. Denies any concerns at this time. Denies any LOF/Vaginal bleeding/Ucs. Reports abundance of FM. Reports a lot of discomforts -Discussed FM at this [place] and [facility] -Review signs and symptoms of Labor and when/how to contact midwives -GBS collected today -Advised on weekly visits from now on. -Has a pre-op appointment in 2 wks -Recommended scheduling a visit for next week -Reviewed end of discomforts and comfort measures. -We discussed PP BC. Assessment & Plan (11/06/2022 1:36 PM EDT): Shivani is here with her daughter- doing ok today. She is feeling daily movement. No PTL signs. Tdap given today. RIRI in 2 wks. Assessment & Plan (10/23/2022 10:13 AM EDT): Shivani is a 27 yo @ 30+3 wks. Baby more active recently. Pt denies vb, lof, ctxs We discussed 3T lab results and need for iron supplementation Pt planning on tdap at [place] Pt worried about placenta previa and has questions regarding management and --all questions encouraged and answered. Pt has upcoming US at [facility] November 06 EPDS 11 today-- pt feels it's entirely regarding discomforts of . Denies depression or history of. States she has great support from SO and family. Planning to be fitted for support belt today. We discussed comforts and support offered. RIRI 2 wks. Assessment & Plan (10/09/2022 5:08 PM EDT): Shivani has been really struggling with hip and inner thigh pain. Comfort measures reviewed. Rx given for support belt. Referral placed for physical therapy. Had level 2 at [facility] today. Normal anatomy. Planning to do 28 week labs this week. Had blood work with PCP who reported low hgb and stated Shivani on iron supplements. Will evaluate when she does 28 week labs. Assessment & Plan (09/22/2022 12:13 PM EDT): Shivani is doing well today- she is feeling much more movement, reassured by this. Follow up ultrasound with limited views again as well as ? Clot vs accessory lobe seen. We reviewed ultrasound findings and made plan for level 2 follow up. Second trimester labs ordered today and instructions on when/how to complete them reviewed. RIRI in 4 wks. Assessment & Plan (08/14/2022 12:42 PM EDT): Shivani is doing well today- just had anatomy scan, limited profile and 3vv views, otherwise unremarkable anatomy. Will schedule f/u scan with visit in 4 weeks. Shivani is concerned because she is not much movement, remembers feeling a lot more in her first . We discussed normal variations in movement and how position and placenta location can impact how much movement is felt. No other questions/concerns today. RIRI with f/u scan in 4 weeks. Assessment & Plan (07/18/2022 12:47 PM EDT): Shivani is feeling OK today, though notes it has been a very challenging already due to GI symptoms. Not feeling FM yet, discussed quickening. Discussed and ordered anatomy scan. Her daughter Magalys is 9, very excited to be a big sister. Assessment & Plan (06/20/2022 4:42 PM EST): Pt to [facility] for evaluation of hyperemesis Assessment & Plan (06/07/2022 12:34 PM EST): Shivani here for FOB with Bogdan and daughter Magalys. Pt reports feeling well--very happy she did not throw up her breakfast: pancakes, sausage, eggs US show s=d, we reviewed confirmation of LMP dating. Will go for lab work today. RIRI 2 wks for weight check. Encounters Date Type Department Care Team Description 02/04/2025 10:10 AM EDT Visit [facility] [address] [place] [address] [place] [address] Radha Wilson CNM History of gestational diabetes (Primary Dx) 01/17/2025 1:30 PM EDT Telemedicine - audio only [facility] [address] [place] [address] Kristine Garzon FNP Intractable migraine without aura and without status migrainosus (Primary Dx); exam from Last 3 Months Immunizations Immunization Administration Dates Next Due COVID-19 Pfizer Comirnaty Vaccine 12+ 04/12/2021 ,03/22/2021 Hepatitis B Adult 11/30/2020,09/27/2020,07/27/19 21 Hepatitis B, unspecified formulation 09/29/2012 Influenza Quadrivalent w/ Preservative IM 2015,01/27/2015 MMR 09/29/2012 Rabies Fibroblast Culture 09/13/2021 Tdap 11/06/2022,06/19/2021 Family History Medical History Relation Comments No Known Problems Brother 1 No Known Problems Brother 2 No Known Problems Father No Known Problems Maternal Grandfather No Known Problems Maternal Grandmother No Known Problems Mother No Known Problems Paternal Grandfather Diabetes Paternal Grandmother No Known Problems Sister 1 No Known Problems Sister 2 No Known Problems Sister 3 Relation Status Comments Brother 1 Alive Brother 2 Alive Father Alive Maternal Grandfather Maternal Grandmother Alive Mother Alive Paternal Grandfather Paternal Grandmother Alive Sister 1 Alive Sister 2 Alive Sister 3 Alive Social History Tobacco Use Types Packs/Day Years Used Date Smoking Tobacco: Never Passive Smoke Exposure: Current Smokeless Tobacco: Never Tobacco Cessation:Counseling Given: Not Answered Alcohol Use Standard Drinks/Week Comments Not Currently 0 (1 standard drink = 0.6 oz pur e alcohol) Education Answer Date Recorded Are you interested in more education? Not on kayla e 08/31/2022 Are you concerned about learning? Not on file 08/31/2022 No 08/31/2022 No 08/31/2022 Food Answer Date Recorded Within the past 6 months we worried whether our food would run out before we got money to buy more. Never True 11/20/2024 Within the past 6 months the food we bought just didn't last and we didn't have enough money to get more. Never True Residential Stability Answer Date Recor ded What is your housing situation today? I have nam sing 11/20/2024 How many times have you move d in the past 12 months? Zero (I did not move) 11/20/2024 Paying for Meds Answer Date Recorded Do you have trouble paying for medicines? No 11/20/2024 Paying Utility Bills Answer Date Record ed Do you have trouble paying your heating or elect ricity bill? No 11/20/2024 Transportation Answer Date Recorded Has the lack of transportati on kept you from medical appointments or from getting medications? No 11/20/2024 Digital Access Answer Date Recorded Yes 11/20/2024 Yes 11/20/2024 Do you have reliable internet access at home? No 11/20/2024 Do you have a device (e.g., phone, tablet, computer) with a working camera? Yes 11/20/2024 Intimate Partner Violence Answer Date R ecorded Are you denied basic needs s uch as food, clothing, or medical care? No 11/22/2024 In the past 12 months have y ou been in a relationship with a person who hurts, threatens, or tries to control you? No 11/22/2024 Are you denied basic needs s uch as food, clothing, or medical care? No 11/22/2024 In the past 12 months have y ou been in a relationship with a person who hurts, threatens, or tries to control you? No 11/22/2024 Comments No Sex and Gender Information Value Date Recorded Sex Assigned at Female 06/20/2022 5:26 PM EST Legal Sex Female 11:41 AM EST Gender Identity Female 06/20/2022 5:26 PM EST Sexual Orientation Straight 06/20/2022 5: 26 PM EST Last Filed Vital Signs Vital Sign Reading Time Taken Comments Blood Pressure 100/60 02/04/2025 10:20 AM EDT Pulse 92 11/22/2024 8:22 AM EDT Temperature 36.8 C (98.2 F) 11/22/2024 8:22 AM EDT Respiratory Rate 17 11/22/2024 8:22 AM EDT Oxygen Saturation 97% 11/22/2024 8:22 AM EDT Inhaled Oxygen Concentration - - Weight 127 kg (280 lb) 02/04/2025 10:20 AM EDT Height 175.3 cm (5' 9.02 ) 12/14/2024 11:47 AM E DT Body Mass Index 41.33 12/14/2024 11:47 AM EDT Plan of Treatment Health Maintenance Due Date Last Done Comments DEPRESSION SCREENING 2005 PNEUMOCOCCAL VACCINES (0-49 years) (1 of 2 - PCV) 02/06/2012 LIPID PANEL 10/16/2024 10/17/2023 DIABETIC EYE EXAM 11/10/2024 URINE MICROALBUMIN/CREATININE RATIO 11/10/2024 INFLUENZA VACCINE (#1) 2024 01/24/2016, 2014 COVID-19 VACCINE (3 - season) 2025 04/12/2021, 03/22/2021 HEMOGLOBIN A1C 05/21/2025 11/18/2024, 06/06/2024, 05/13/2024, Additional history exists BLOOD PRESSURE 08/05/2025 02/04/2025 PAP SMEAR 05/11/2027 05/11/2024, 12/17/2016 Adult Td,Tdap Booster 11/06/2032 11/06/2022, 022 HEPATITIS C SCREENING Completed 05/28/2024 , 05/28/2024, 06/07/2022, Additional history exists HIV ONE-TIME SCREENING (18-65 YEARS) Completed 05/28/2024 SMOKING STATUS SCREENING (Once After 26 Yrs) Completed 12/14/2024 HEPATITIS A VACCINES Aged Out No long er eligible based on patient's age to complete this topic HIB VACCINES Aged Out No longer eligi ble based on patient's age to complete this topic MENINGOCOCCAL VACCINES (ACWY) Aged Out No longer eligible based on patient's age to complete this topic MENINGOCOCCAL VACCINES (B) Aged Out N o longer eligible based on patient's age to complete this topic Medical Devices Not on file Procedures Procedure Name Priority Date/Time Associated Diagnosis Comments HEMOGLOBIN A1C STAT 11/18/2024 1:12 PM EDT HEPATITIS C ANTIBODY, QUALITATIVE Routine 05/28/2024 10:30 AM EST Encounter for supervision of other normal in first trimester PAP TEST Routine 05/11/2024 12:00 AM EST from Last 3 Months or Most Recently Relevant to Health Maintenance Results * (ABNORMAL) Hemoglobin A1c (11/18/2024 1:12 PM EDT) HEMOGLOBIN A1C 6.0(H) 4.3 - 5.8 % [facility] Blood 11/18/2024 1:12 PM EDT 11/18/2024 1:36 PM EDT us El Fabian MD LAB BLOOD BKR ORDERABLES Final Result Performing Organization Address City/State/[facility] Co de Phone Number [address] [address] * Hepatitis C antibody, qualitative (05/28/2024 10:30 AM EST) HCV NON-REACTIV E NON-REACTI VE [facility] Blood 05/28/2024 10:3 0 AM EST 05/28/2024 10:36 AM EST us Tish Moulton CNM LAB BLOOD BKR ORDERABLES Fin al Result Performing Organization Address City/[facility]/ZIP Co de Phone Number [address] [address] * Pap Test (05/11/2024 12:00 AM EST) Report [address] [address] Interior Design Professor: Carlos Cook MD [employer] Cytology Report FINAL DIAGNOSIS A. PAP SMEAR (THIN PREP) CE: SPECIMEN ADEQUACY: Satisfactory for evaluation; transformation zone present. INTERPRETATION: NEGATIVE FOR INTRAEPITHELIAL LESION OR MALIGNANCY. This specimen was analyzed by the automated ThinPrep Imaging System (Chogger.) and the selected early were reviewed by a respiratory care technician. Electronically Signed Out By: ELIA Perez(ASCP) The Pap test is a screening test primarily for squamous cancers and precursors and has associated false-negative and false-positive results. New technologies such as liquid-based preparations may decrease but will not eliminate all false-negative results. Regular sampling and follow-up of unexplained clinical signs and symptoms are recommended to minimize false negative results. PROCEDURES/ADDENDA HPV Testing (Requested) Ordered Date: 05/12/2024 A. PAP SMEAR (THIN PREP) CE: High-risk HPV Panel w/ extended genotyping NEG HPV 16-NEG HPV 18-NEG HPV 45-NEG HPV 33/58-NEG HPV 31-NEG HPV 56/59/66-NEG HPV 51-NEG HPV 52-NEG HPV 35/39/68-NEG Performed by real-time polymerase chain reaction (PCR) at [address] using the FDA-approved BD Onclarity9 HPV Assay with extended genotyping. Uses of the assay in scenarios other than those approved by the FDA should be considered off-label use. The accuracy and precision of this test for all other off-label specimen sources has been verified in the Cytopathology Laboratory of the [facility] and has not been cleared or approved by the U.S. Food and Drug Administration. Clinical correlation is advised. The assay assesses the E6/E7 DNA target and utilizes human beta globin as an internal control. Cytology and HPV testing are screening assays and should not be used as the sole means of detecting cancer. False-positives and false-negatives can occur. CLINICAL HISTORY Date of Last Menstrual Period: Not Provided Menstrual History: Other Clinical Conditions: Screening Pap SPECIMEN SOURCE A: PAP SMEAR (THIN PREP) CE Patient Name: SHIVANI AMAYA : 1995 (Age: 29) Sex: F Institution: [facility] Location: [facility] Date of Collection: 05/11/2024 Date of Reported: 05/14/2024 14:38 Results to: Ochoa Horvath [facility] Final Diagnosis A. PAP SMEAR (THIN PREP) CE: SPECIMEN ADEQUACY: Satisfactory for evaluation; transformation zone present. INTERPRETATION: NEGATIVE FOR INTRAEPITHELIAL LESION OR MALIGNANCY. This specimen was analyzed by the automated ThinPrep Imaging System (Chogger.) and the selected early were reviewed by a respiratory care technician. [facility] Results\Inter pretation A. PAP SMEAR (THIN PREP) CE: High-risk HPV Panel w/ extended genotyping NEG HPV 16-NEG HPV 18-NEG HPV 45-NEG HPV 33/58-NEG HPV 31-NEG HPV 56/59/66-NEG HPV 51-NEG HPV 52-NEG HPV 35/39/68-NEG Performed by real-time polymerase chain reaction (PCR) at [facility], [address] [place] [address] using the FDA-approved BD Onclarity HPV Assay with extended genotyping. Uses of the assay in scenarios other than those approved by the FDA should be considered off-label use. The accuracy and precision of this test for all other off-label specimen sources has been verified in the Cytopathology Laboratory of the [facility] and has not been cleared or approved by the U.S. Food and Drug Administration. Clinical correlation is advised. The assay assesses the E6/E7 DNA target and utilizes human beta globin as an internal control. Cytology and HPV testing are screening assays and should not be used as the sole means of detecting cancer. False-positives and false-negatives can occur. [facility] Conversion Type (Conversion Source) 05/11/2024 05/12/2024 9:01 AM EST us Ochoa Horvath CNM, MPH CYTOLOGY ORDERABLES Ed ited Result - Final [address] [address] from Last 3 Months or Most Recently Relevant to Health Maintenance [place] [place] [address] [employer] [facility] [place] [address] [facility] [place] [address] Advance Directives For more information, please contact: [phone] (9AM - 5PM [place]/[facility], Friday-Friday) Documents on File Type Date Recorded Patient Phlebotomy Technologist Expl anation Healthcare Proxy 12/27/2022 12:21 PM * Full Code (Latest Code Status on File) Date Activated Date Inactivated Comments 11/19/2024 12:50 AM Question Answer Comments Code Status Confirmed With: Patient * Full Code Date Activated Date Inactivated Comments 11/18/2024 12:53 PM 11/19/2024 12:50 AM Question Answer Comments Code Status Confirmed With: Patient * Full Code Date Activated Date Inactivated Comments 12/22/2022 8:02 PM 11/18/2024 12:53 PM Question Answer Comments Code Status Confirmed With: Patient Care Teams [employer] Consultant Relationship Specialty Start Date End Date Nadira Jo MD [address] [place] [phone] PCP - General Internal Medicine 10/10/22 Additional Source Comments The information contained in this document represents components of the legal health record. It is not the complete legal health record.[facility]
--- OUTSIDE RECORDS SUMMARY | 2025-04-06 16:59 | XMS_ITS | Encounter Summary ---
Author Organization [facility] Address [address] [place] [phone] Phone Care Team Providers Care Commercial Front Load Driver Name Role Phone Nadira Jo MD Primary Care Pro vider Encounter Details Date Type Department Care Team (Late st Contact Info) Description 08/31/2024 Procedure Pass [facility], [address] [address] Social History Tobacco Use Types Packs/Day Years [...] on filedocumented in this encounter Care Teams Commercial Front Load Driver Relationship Specialty Start Date End Date Nadira Jo MD [address] [place] [phone] PCP - General Internal Medicine 10/10/22 documented as of this encounter Additional Source Comments The information contained in this document represents components of the legal health record. It is not the complete legal health record.[facility]
--- OUTSIDE RECORDS SUMMARY | 2025-04-06 16:59 | XMS_ITS | Encounter Summary ---
Author Organization [facility] Address [address] [place] [phone] Phone Care Team Providers Care Contract Design Agent Name Role Phone Nadira Jo MD Primary Care Pro vider Encounter Details Date Type Department Care Team ([facility] st Contact Info) Description 12/23/2022 Procedure Pass [facility] Procedures [address] [place] [address] Social History Tobacco Use Types Packs/Day Years Used Date Smoking Tobacco: Never Smokeless Tobacco: Never Alcohol Use Standard [...] on filedocumented in this encounter Care Teams Contract Design Agent Relationship Specialty Start Date End Date Nadira Jo MD [address] [place] [phone] PCP - General Internal Medicine 10/10/22 documented as of this encounter Additional Source Comments The information contained in this document represents components of the legal health record. It is not the complete legal health record.[facility]
== END 2025-04-06 14:38 | disposition home or self-care (01) ==
LOC: HO.HCS 14:06
PROVIDERS: PCP Student in an Organized Health Care Education/Training Program; Visit Provider Internal Medicine
DX: E66.01 Morbid (severe) obesity due to excess calories (principal); R07.2 Precordial pain; R00.0 Tachycardia, unspecified; R06.02 Shortness of breath
CPT/HCPCS: 93010; 99204

== ENCOUNTER 2025-04-06 14:06 | Outpatient (REF) | payer MEDICAID, SELFPAY ==
[2025-04-06 15:14] LABS: MANUAL DIFF FLAG NO
[2025-04-06 15:48] LABS: Hematocrit 37.2 % (37.0-47.0); Hemoglobin 11.8 g/dl (12.0-16.0); Imm Gran Abs Auto 0.02 X10*3/uL (0.00-0.03); Imm Gran Pct Auto 0.2 % (0.0-0.4); Lymphocytes Absolute Auto 3.1 X10*3/uL (1.2-4.9); Mean Corpuscular HGB Conc 31.7 g/dl (31.0-35.0); Mean Corpuscular Hemoglobin 25.4 pg (27.0-33.0); Mean Corpuscular Volume 80.2 fL (80.0-98.0); NRBC Abs Auto 0.000 X10*3/uL (0.0-0.012); NRBC Pct Auto 0.0 /100WBC (0.0-0.2); Platelet Count 386 X10*3/uL (160-400); Red Blood Count 4.64 X10*6/uL (4.20-5.50); White Blood Count 8.9 X10*3/uL (4.8-10.8)
[2025-04-06 16:03] LABS: D Dimer High Sensitivity 297 NG/ML
[2025-04-06 16:06] LABS: Hemoglobin A1C 81.4909 umol/L
[2025-04-06 16:26] LABS: Alanine Aminotransferase 31 U/L (0-31); Albumin Level 4.3 g/dL (3.5-5.0); Alkaline Phosphatase 200 U/L (39-117); Anion Gap 13 (12-20); Aspartate Amino Transferase 26 U/L (5-31); Blood Urea Nitrogen 14 mg/dL (9-16); Calcium 9.2 mg/dL (8.4-10.2); Carbon Dioxide 25 mmol/L (22-29); Chloride 108 mmol/L (96-108); Cholesterol 194 mg/dL (<200); Estimated Glomerular Filt Rate > 60; HDL Cholesterol 60 mg/dL (>40); Potassium 3.9 mmol/L (3.3-5.1); Sodium 142 mmol/L (135-145); Total Protein 7.7 g/dL (6.5-8.0); Triglycerides 94 mg/dL (<150)
[2025-04-07 00:30] LABS: CT PCR Urine NOT DETECTED (Not Detect.); NG PCR Urine NOT DETECTED (Not Detect.)
[2025-04-07 06:30] LABS: Syphilis Screen Nonreactive (Nonreactive)
[2025-04-07 07:01] LABS: HBsAGNum1 0.35 S/CO (0.00-0.99); HIV Num 1 0.08 S/CO (0.00-0.99); Hepatitis B Surface Antigen Negative (Negative); ~HepC Num1 0.13 S/CO (0.00-0.79); ~Hepatitis C Antibody Nonreactive (Nonreactive)
== END 2025-04-06 14:07 | disposition home or self-care (01) ==
LOC: HO.XRAY 14:06
PROVIDERS: Absent Provider Student in an Organized Health Care Education/Training Program; PCP Student in an Organized Health Care Education/Training Program; Visit Provider Internal Medicine
DX: R07.2 Precordial pain (principal); E66.01 Morbid (severe) obesity due to excess calories; I51.7 Cardiomegaly; R00.0 Tachycardia, unspecified; R06.02 Shortness of breath; Z00.00 Encounter for general adult medical examination without abnormal findings; Z20.2 Contact with and (suspected) exposure to infections with a predominantly sexual mode of transmission; Z11.4 Encounter for screening for human immunodeficiency virus [HIV]; Z11.59 Encounter for screening for other viral diseases; Z68.41 Body mass index [BMI] 40.0-44.9, adult
CPT/HCPCS: 80053; 80061; 82306; 83036; 84443; 85025; 85379; 86780; 86803; 87340; 87389; 87491; 87591

== ENCOUNTER 2025-04-06 18:57 | Emergency (ER) | payer MEDICAID, SELFPAY ==
--- NOTE | ~2025-04-06 | CT_ITS ---
CLINICAL HISTORY: Chest pain, elevated Dimer CT angiography chest with contrast. MIP postprocessing. Comparison: None provided Findings: There is appropriate contrast opacification of the main, lobar, and segmental pulmonary arteries. No filling defects identified to suggest pulmonary embolism. Thoracic aorta is nonaneurysmal. Heart size within normal limits. Soft tissue density within the anterior mediastinum is likely due to residual thymic tissue. No pathologically enlarged lymph nodes. No focal areas of consolidation within the lungs. No pleural effusion or pneumothorax. Small hiatal hernia. No free fluid or free air within the upper abdomen. No acute bony abnormality. IMPRESSION: 1. No pulmonary emboli. 2. No acute infiltrate. This document has been electronically signed by: Andrade Powell MD on 04/06/2025 23:58:06
[2025-04-06 19:24] VITALS: BP 112/58; PULSE 97; RESP 20; TEMP 36.1; O2SAT 98; BMI 45.2
--- NOTE | 2025-04-06 19:28 | ED.GENADULT ---
HPI - General Adult General Chief complaint: General Medical Stated complaint: ABN lab work sent by Time Seen by Provider: 04/06/25 20:39 History of Present Illness ED Provider: estrella OLIVARES narrative: This is a pleasant 30-year-old female who comes in after having blood drawn. It's notable that the blood tests were ordered two months ago when she was experiencing more frequent central, sometimes pleuritic, chest pain. Most of these have diminished in severity. She points to the middle of the chest, and is not with active chest pain. She feels a little bit shorter breath on exertion. No edema, no history of DVT or PE. Denies cough, fever, chills, sore throat, or any other symptoms. Occasionally feels palpitations. D-dimer was positive on outpatient lab tests. Related Data Home Medications ?Medication ?Instructions ?Recorded ?Confirmed omeprazole 20 mg capsule,delayed 20 mg PO DAILY 04/19/21 04/06/25 release Allergies Allergy/AdvReac Type Severity Reaction Status Date / Time No Known Allergies (No Known Allergy Verified 04/06/25 19:27 Allergies*) [facility] Past Medical History Medical History Meningitis Migraines Family History Family History Mother No problems noted. Father No problems noted. Social History Social History Alcohol intake: never Patient Tobacco Use Status: Never used Tobacco Physical Exam ED Exam Exam: EXAM: Gen: Alert, awake, well appearing, well hydrated. Head: Atraumatic Eyes: Anicteric, Normal conjunctiva. ENT: Moist mucosa, no pallor. Neck: Supple. Respiratory: Breathing comfortably, No distress.Clear to auscultation bilaterally, symmetric chest expansion, No wheeze, rales, ronchi. Cardiovascular: Regular rate and rhythm. No murmurs or rub. Well perfused periphery, warm extremities. No edema. Abdominal: Soft, no objective distension. No palpable masses or obvious organomegaly. No focal tenderness, no guarding, no rebound tenderness or other peritoneal findings. : No flank tenderness. Neuro: Alert. Gross movement of all extremities intact. Vital signs: See flowsheet Vital Signs: Vital Signs - 24 hr 04/06/25 19:24 04/06/25 19:55 Temperature 97.0 F 97.5 F Pulse Rate 97 91 Respiratory Rate 20 18 Blood Pressure 112/58 L 132/68 Pulse Oximetry 98 98 Oxygen Delivery Method Room Air Room Air BMI result Body Mass Index 45.2 Course Course Course Narrative: RME: 30 year female presents to ED for elevated D-dimer. Patient has had D-dimer doing a primary care provider in the called her to her going to the ED to rule out blood clot in her lung. Patient states presently has no chest pain but it is came to the ED to be evaluated. Charge nurse made aware. Patient to be brought back to the ED Medications Administered Discontinued Medications Generic Name Dose Route Start Last Admin Trade Name Chuck PRN Reason Stop Dose Admin Iohexol 100 ml 04/06/25 23:25 04/06/25 23:25 Iohexol 350 Mg/Ml 100 Ml Infus..Btl IV 04/06/25 23:26 75 ml ONCE ONE Administration Medical Decision Making Medical Decision Making [facility] Narrative: 30-year-old female with resolving atypical chest pain. Its peak was about two months ago when a d-dimer was ordered. She just got this drawn recently. The rest of the blood work was reassuring, this d-dimer was positive however slightly paired. The patient is with normal physical exam, non-ischemic ECG, clear lungs, normal and reassuring cardiovascular exam, no clear or obvious P-E risk factors. CTA was ordered due to the positive d-dimer. CTA resulted, thankfully, negative with no cardiopulmonary pathology seen. Differential Diagnosis Differential Diagnoses: The differential diagnosis associated with the presentation includes Atypical chest pain, unlikely PE though considered, musculoskeletal pain, costochondritis. Lab Data [facility] Lab Attestation statement: I reviewed the patient's lab results. Labs: Lab Results 04/06/25 Range/Units 22:29 Troponin I High Sens < 2.7 (<3.5-17.0) ng/L NT-Pro-B Natriuret Pep 24.1 (<300) pg/mL Beta HCG, Quant < 2 mIU/mL Independent Interpretation I performed an independent interpretation of an: EKG (Sinus rhythm, normal rate, QTc < 500, no RV strain, no ischemia.) Discharge Plan Discharge Clinical Impression: Precordial chest pain Patient Disposition: Home, Self-Care Instructions: Chest Pain (ED) Additional Instructions: You had a reassuring workup in the ER. Normal EKG, CT of the chest excludes pulmonary emboli (blood clot). Prescriptions: No Action omeprazole 20 mg capsule,delayed release(DR/EC) 20 mg PO DAILY Interventions: ED Discharge Assessment Last Done: 04/07/25 01:03 Discharge Date/Time: 04/07/25 01:04 Print Language: Persian
[2025-04-06 19:55] VITALS: BP 132/68; PULSE 91; RESP 18; TEMP 36.4; O2SAT 98
--- NOTE | 2025-04-06 22:15 | ECG_ITS ---
Test Reason : CHEST PAIN Blood Pressure : */* mmHG Vent. Rate : 85 BPM Atrial Rate : 85 BPM P-R Int : 154 ms QRS Dur : 88 ms QT Int : 396 ms P-R-T Axes : 52 29 23 degrees QTcB Int : 471 ms Normal sinus rhythm Normal ECG When compared with ECG of 29-Apr-2022 13:31, No significant change was found Referred By: Pablo Mathew Electronically Signed By: BRYAN GARCIA
[2025-04-06 22:54] LABS: NT Pro B Type Natriuretic Pept 24.1 pg/mL (<300)
[2025-04-06 22:55] LABS: Troponin-I High Sensitivity < 2.7 ng/L (<3.5-17.0)
[2025-04-06] MEDS: iohexoL 350 MG/ML 100 ML INFUS..BTL IV (23:25)
[2025-04-07 01:03] VITALS: BP 125/69; PULSE 90; RESP 16; TEMP 36.6; O2SAT 98
== END 2025-04-07 01:04 | disposition home or self-care (01) ==
PROVIDERS: Emergency Provider Emergency Medicine; PCP Student in an Organized Health Care Education/Training Program
DX: R07.2 Precordial pain (principal); R79.1 Abnormal coagulation profile
CPT/HCPCS: 36415; 71275; 83880; 84484; 84702; 93005; 99285; Q9967

== ENCOUNTER → 2025-04-06 22:14 | Outpatient (BNV) | payer MEDICAID, SELFPAY | PROVIDERS: Emergency Provider Emergency Medicine; PCP Student in an Organized Health Care Education/Training Program; Visit Provider Radiology Diagnostic Radiology | DX: R07.9 Chest pain, unspecified (principal); R79.1 Abnormal coagulation profile | CPT/HCPCS: 71275 ==